=== PATIENT | female | born 1980 | race Caucasian/White ===

== ENCOUNTER 2023-03-11 18:17 | Inpatient (IN) | payer MEDICAID, SELFPAY ==
[2023-03-11 18:18] VITALS: BP 108/81; PULSE 160; RESP 22; TEMP 36.3; O2SAT 96; BMI 33.3
--- NOTE | 2023-03-11 18:57 | EKG12_ITS ---
Test Reason : DYSRHYTHMIA Blood Pressure : / mmHG Vent. Rate : 068 BPM Atrial Rate : 068 BPM P-R Int : 142 ms QRS Dur : 068 ms QT Int : 402 ms P-R-T Axes : 073 007 043 degrees QTc Int : 427 ms Normal sinus rhythm Normal ECG Confirmed by ERASTO AGUILA, TOMMIE ([id number]), commercial production editor MAC STAFFORD ([id number]) on 03/14/2023 10:16:42 AM Referred By: SID Confirmed By:TOMMIE MAURER MD
[2023-03-11] MEDS: 0.9% Normal Saline (1000mL) 1,000 ML 999 ML IV (19:33)
[2023-03-11 19:50] LABS: Absolute Neutrophil Count 7.3 X10^3/uL (2.0-7.7); Basophil# 0.01 X10^3/uL; Basophil% 0.1 % (0-1); Eosinophil# 0.05 X10^3/uL; Eosinophils% 0.5 % (0-5); Hematocrit 47.5 % (37-47); Hemoglobin 15.9 g/dL (12.0-15.0); Lymphocyte % 26.5 % (19-41); Mean Corp Hgb Conc 33.5 g/dL (32-36); Mean Corpuscular Hgb 28.8 pg (27.0-32.0); Mean Corpuscular Volume 85.9 fL (81-99); Mean Platelet Vol. 11.2 fl (6.2-12.0); Monocyte# 0.62 X10^3/uL; Monocyte% 5.7 % (0-10); NRBC Flagged by Analyzer 0 % (0-5); Neutrophil # 7.34 X10^3/uL (2.7-7.7); Neutrophil % 66.9 % (47-70); Platelet Count 188 K/mm3 (150-450); RBC Distribution Width CV 13.4 % (11.6-14.6); RBC Distribution Width SD 42.3 fl (35.1-43.9); Red Blood Count 5.53 M/mm3 (4.2-5.4)
[2023-03-11 20:02] LABS: Alcohol, Blood (Medical)-Serum < 3.0 mg/dL
[2023-03-11 20:09] LABS: ALB/GLOB Ratio 0.8 RATIO (0.9-2.4); AST(SGOT) 11 U/L (15-37); Alanine Aminotransfer ALT/SGPT 21 U/L (13-56); Albumin, Serum 3.8 g/dL (3.2-5.0); Alkaline Phosphatase 71 U/L (45-117); Anion Gap 6 (5-15); BUN 12 mg/dL (7-18); BUN/Creat Ratio 13.2 RATIO (10-20); Calcium,Total 9.1 mg/dL (8.5-10.1); Chloride 108 mmol/L (98-107); Creatinine, Serum 0.91 mg/dL (0.55-1.02); EST Glomerular Filtration Rate 71 mL/min (>60); Est Glom Filt Rate - Afr Amer 86 mL/min (>60); Estimated Creatinine Clearance 73.85 ml/min; Globulin 4.6 g/dL (2.2-4.2); Glucose 110 mg/dL (74-106); Potassium 3.7 mmol/L (3.5-5.1); Protein, Total 8.4 g/dL (6.4-8.2); Sodium Level 139 mmol/L (136-145); Troponin-I HS 14 pg/mL (3.0-54.0)
[2023-03-11 20:10] LABS: Amphetamine Urine VISTA NEGATIVE (<1000 ng/mL); Barbiturate Urine VISTA NEGATIVE (< 200 ng/mL); Benzodiazepine Urine VISTA NEGATIVE (< 200 ng/mL); Cocaine Urine VISTA NEGATIVE (< 300 ng/mL); Ecstacy Urine VISTA POSITIVE (< 500 ng/mL); Methadone Urine VISTA NEGATIVE (< 300 ng/mL); PCP Urine VISTA NEGATIVE (< 25 ng/mL); THC Urine VISTA POSITIVE (< 50 ng/mL); Vista UDS pH Range 6
[2023-03-11 20:59] LABS: Internal QC Validated? YES +Cl - CLEAR BKGD; Pregnancy, Urine Negative Negative
[2023-03-11 21:23] VITALS: BP 145/89; PULSE 63; RESP 16; TEMP 35.9; O2SAT 96
--- NOTE | 2023-03-11 21:47 | EDS_ITS ---
HPI History of Present Illness Chief Complaint: Substance Abuse Narrative Narrative: 2-year-old female presenting for opioid detox. She states she uses heroin and is not sure if uses fentanyl. Last use was 2 days ago. She states she feels like her body is caving in on her for today. She is unable to walk without getting tachycardic. She feels rundown. Last detox was over a year ago. She currently smokes heroin and does not inject it. She states that 4 years ago she used to injected. Patient requesting detox due to his symptoms. Denies any significant medical problems otherwise PFSH PFSH Allergy/AdvReac Type Severity Reaction Status Date / Time No Known Allergies Allergy Verified 03/11/23 18:18 Social History Smoking Status: Current every day smoker tobacco type: cigarettes ROS ROS ED Constitutional Constitutional ED: Denies chills, fever(s) or sweats Eyes Eyes: Denies blurry vision or change in vision ENT ENT ED: Denies ear pain or sore throat Cardiovascular Cardiovascular: Denies chest pain, palpitations or racing heartbeat Respiratory/Chest Respiratory/Chest: Denies cough, dyspnea or sputum Gastrointestinal Gastrointestinal: Denies abdominal pain, constipation, diarrhea, nausea or vomiting Genitourinary Genitourinary ED: Denies dysuria, hematuria or urinary frequency Musculoskeletal Musculoskeletal: Denies arthralgias, myalgias or neck pain Integumentary Denies abscess, Abrasions or rash Neurologic Neurologic: Denies headache(s), paresthesias or weakness Psychiatric Psychiatric: Denies anxiety, depression, suicidal ideation or suicidal thoughts Endocrine Endocrinology: Denies polydipsia or polyuria EXAM Physical Exam Const Vital Signs: 03/11/23 18:18 03/11/23 21:23 Temperature 97.3 F L 96.6 F L Temperature Source Temporal Pulse Rate 160 H 63 Respiratory Rate 22 H 16 Blood Pressure 108/81 H 145/89 H Blood Pressure Mean 90 107 Pulse Ox 96 96 Oxygen Delivery Method Room Air Positive well nourished General Appearance ED: NAD; Negative for pallor HEENT Reports moist mucous membranes atraumatic Eyes PERRL and EOMs intact bilaterally Neck no lymphadenopathy Resp normal respiratory effort and clear to auscultation bilaterally Auscultation: Negative for rales, rhonchi or wheezes Cardio regular rate Rate: tachycardic GI soft to palpation Neuro oriented x3 and CN's II-XII intact bilaterally Sensorium / Orientation: alert Psych mental status grossly normal and thought process normal Skin General Skin Exam: Negative for jaundice or pallor MDM MDM MDM Narrative Medical decision making narrative: Patient presenting for opioid detox. Appropriate lab work was obtained. Patient noted to be tachycardic at 160 on arrival. I obtained an EKG to make sure there is no dysrhythmia associated with the my interpretation of the EKG is sinus rhythm with a ventricular rate of 68 bpm without sign of ischemic change or ectopy. CBC, CMP unremarkable. Screen positive for the boys and MDMA. Negative for opiates. She is unsure if she is using fentanyl. High-sensitivity troponin was 14. Because of the tachycardia patient was given IV fluids. Since her work-up is ultimately normal. Her admitted and speak to the hospitalist. Impression: 1. History of opioid abuse 2. Presentation for opioid detox 3. Tachycardia?resolved Lab Data Attestation: I reviewed the patient's lab results. Labs: Laboratory Results - last 24 hr 03/11/23 19:30 WBC 11.0 RBC 5.53 H Hgb 15.9 H Hct 47.5 H MCV 85.9 MCH 28.8 MCHC 33.5 RDW Std Deviation 42.3 RDW Coeff of Terrence 13.4 Plt Count 188 MPV 11.2 Immature Gran % (Auto) 0.300 Neut % (Auto) 66.9 Lymph % (Auto) 26.5 [place] % (Auto) 5.7 Eos % (Auto) 0.5 Baso % (Auto) 0.1 Absolute Neuts (auto) 7.3 Absolute Lymphs (auto) 2.90 Nucleated RBC % 0 Sodium 139 Potassium 3.7 Chloride 108 H Carbon Dioxide 25.0 Anion Gap 6 BUN 12 Creatinine 0.91 Estim Creat Clear Calc 73.85 Est GFR (MDRD) Af Amer 86 Est GFR (MDRD) Non-Af 71 BUN/Creatinine Ratio 13.2 Glucose 110 H Calcium 9.1 Total Bilirubin 0.50 AST 11 L ALT 21 Alkaline Phosphatase 71 Troponin I High Sens 14 Total Protein 8.4 H Albumin 3.8 Globulin 4.6 H Albumin/Globulin Ratio 0.8 L Urine Test Negative Urine Opiates Screen NEGATIVE Urine Methadone Screen NEGATIVE Ur Barbiturates Screen NEGATIVE Ur Phencyclidine Scrn NEGATIVE Ur Amphetamines Screen NEGATIVE MDMA (Ecstasy) Screen POSITIVE H U Benzodiazepines Scrn NEGATIVE Urine Cocaine Screen NEGATIVE U Cannabinoids Screen POSITIVE H Ur Drug Screen Comment Ethyl Alcohol < 3.0 Discharge Plan Triage Chief Complaint: Substance Abuse ED Provider: Lance Martin Dx/Rx/DC Orders Primary Care Provider: Care Physician,No Primary Referrals: Care Physician,No Primary [Primary Care Provider] -
--- NOTE | 2023-03-11 22:48 | HP.PCM.HOS_ITS ---
HPI - General General Date of Admission: 03/11/23 Date of Service: 03/11/23 Chief Complaint: Requesting opiate withdrawal treatment HPI Narrative AL TRONCOSO, is a 42 F who presents requesting treatment for opiate withdrawal. Patient smokes heroin in addition to using cocaine and marijuana. Patient's last use was about 2 days ago. She is try to do this on her own but the symptoms of her opiate withdrawal became too intense. Been experiencing nausea, severe abdominal cramps and feeling that her bones are being crushed. Patient had been sober for period of time but relapsed and December 2021 and has been using opiates ever since. [facility] Medical History (Updated 03/11/23 @ 22:[address] Patricio Mckenzie DO) Diabetes mellitus, type 2 Allergy/AdvReac Type Severity Reaction Status Date / Time No Known Allergies Allergy Verified 03/11/23 18:18 Family History (Updated 03/11/23 @ 22:[address] Patricio Mckenzie DO) Other Diabetes Social History (Updated 03/11/23 @ 22:[address] Patricio Mckenzie DO) Smoking Status: Current every day smoker tobacco type: cigarettes alcohol intake: former substance use type: marijuana, crack/cocaine and heroin ROS ROS Narrative All review of systems were negative except as mentioned above in the history of present illness and the other review of systems. Vital Signs Vital Signs Vital Signs: 03/11/23 18:18 03/11/23 21:23 Temperature 36.3 C L 35.9 C L Temperature Source Temporal Pulse Rate 160 H 63 Respiratory Rate 22 H 16 Blood Pressure 108/81 H 145/89 H Blood Pressure Mean 90 107 Pulse Ox 96 96 Oxygen Delivery Method Room Air Weight Weight: 93.7 kg Body Mass Index (BMI) 33.3 Physical Exam Const alert and no apparent distress HEENT normocephalic and head/scalp atraumatic Resp normal respiratory effort, no retractions, no use of accessory muscles and clear to auscultation bilaterally Cardio regular rate, regular rhythm, S1 normal heart sound and S2 normal heart sound GI normal to inspection, nondistended, normoactive bowel sounds, soft to palpation, non-tender and non-distended Extremity normal to inspection and full ROM Neuro moves all extremities Sensorium / Orientation: awake and alert Psych affect normal Results Lab / Micro Data 03/11/23 19:30 03/11/23 19:30 Labs: Laboratory Results - last 24 hr 03/11/23 19:30: WBC 11.0, RBC 5.53 H, Hgb 15.9 H, Hct 47.5 H, MCV 85.9, MCH 2 8.8, MCHC 33.5, RDW Std Deviation 42.3, RDW Coeff of Terrence 13.4, Plt Count 188, MPV 11.2, Immature Gran % (Auto) 0.300, Neut % (Auto) 66.9, Lymph % (Auto) 26.5, [place] % (Auto) 5.7, Eos % (Auto) 0.5, Baso % (Auto) 0.1, Absolute Neuts (auto) 7.3, Absolute Lymphs (auto) 2.90, Nucleated RBC % 0, Sodium 139, Potassium 3.7, Chloride 108 H, Carbon Dioxide 25.0, Anion Gap 6, BUN 12, Creatinine 0.91, Estim Creat Clear Calc 73.85, Est GFR (MDRD) Af Amer 86, Est GFR (MDRD) Non-Af 71, BU N/Creatinine Ratio 13.2, Glucose 110 H, Calcium 9.1, Total Bilirubin 0.50, AST 11 L, ALT 21, Alkaline Phosphatase 71, Troponin I High Sens 14, Total Protein 8.4 H, Albumin 3.8, Globulin 4.6 H, Albumin/Globulin Ratio 0.8 L, Urine Test Negative, Urine Opiates Screen NEGATIVE, Urine Methadone Screen NEGATIVE, Ur Barbiturates Screen NEGATIVE, Ur Phencyclidine Scrn NEGATIVE, Ur Amphetamines Screen NEGATIVE, MDMA (Ecstasy) Screen POSITIVE H, U [place] Scrn NEGATIVE, Urine Cocaine Screen NEGATIVE, U Cannabinoids Screen POSITIVE H, Ur Drug Screen Comment , Ethyl Alcohol < 3.0 Assessment & Plan Assessment/Plan (1) Opiate withdrawal: PLAN: Patient had tried doing this on her own and quit 2 days prior to admission. Symptoms were too intense for her at home. Patient will be initiated on buprenorphine taper as well as other agents to help with other somatic complaints as needed from her withdrawal. Patient understands that she will be here for about 3 days and then look at having addiction medicine evaluate her on Tuesday to see about some outpatient programs that she may benefit from. She is open to the program and willing to proceed to discuss with addiction medicine on Tuesday. PLAN: Plan History of diabetes mellitus type 2: Patient had been on medications before but had been taken off by her primary care doctor this is reportedly her blood sugar doing fairly well. Blood sugar here is 110. She does not follow diabetic diet. Recommend that she follow-up with her primary care provider as outpatient. VTE prophylaxis: Low risk and not indicated at this time. Charges/Coding Visit Charges Inpatient E&M: 34972 Init Hosp L2
[2023-03-11 23:02] VITALS: BMI 32.6
[2023-03-11 23:25] VITALS: BP 136/64; PULSE 64; RESP 16; TEMP 36.5; O2SAT 95
[2023-03-11] MEDS: Ondansetron 8 MG Tablet PO (23:36)
[2023-03-11] MEDS: Dicyclomine 10 MG Capsule 20 MG PO (23:36)
[2023-03-11] MEDS: Methocarbamol 750 MG Tablet PO (23:36)
[2023-03-11] MEDS: Loperamide 2 MG Capsule PO (23:37)
[2023-03-11] MEDS: hydrOXYzine PAM 25 MG Capsule 50 MG PO (23:37)
[2023-03-11] MEDS: Buprenorphine HCl 2 MG TAB.SUBL SL (23:40)
[2023-03-12] MEDS: Methocarbamol 750 MG Tablet PO ×3 (06:54→23:02)
[2023-03-12] MEDS: hydrOXYzine PAM 25 MG Capsule 50 MG PO ×3 (06:54→22:59)
[2023-03-12] MEDS: Buprenorphine HCl 2 MG TAB.SUBL SL ×3 (06:54→23:03)
[2023-03-12] MEDS: Dicyclomine 10 MG Capsule 20 MG PO ×2 (06:58→15:33)
[2023-03-12] MEDS: cloNIDine HCl 0.1 MG Tablet PO (06:58)
[2023-03-12 07:01] VITALS: BP 148/93; PULSE 89; RESP 16; TEMP 36.5; O2SAT 99
[2023-03-12] MEDS: Ibuprofen 600 MG Tablet PO (09:32)
--- NOTE | 2023-03-12 09:34 | PCM.PN.HOSP ---
Reason for Visit Reason for Visit: Diagnoses Opioid use, unspecified with withdrawal (03/11/23) Subjective Subjective Pt beginning to feel better on supportive medications, achiness improving Objective Data Objective Data Vital Signs: Vital Signs Temp Pulse Resp BP Pulse Ox O2 Del Method 97.7 F L 89 16 148/93 H 99 Room Air 03/12/23 07:01 03/12/23 07:01 03/12/23 07:01 03/12/23 07:01 03/12/23 07:01 03/12/23 07:01 Oxygen Delivery Method Room Air Weight: 91.7 kg Body Mass Index (BMI) 32.6 Intake & Output: Intake and Output for Last 24 Hours 03/10/23 03/11/23 03/12/23 23:59 23:59 23:59 Intake Total 1000 / 1000 Balance 1000 / 1000 Lab / Micro Data 03/11/23 19:30 03/11/23 19:30 Labs: Laboratory Results - last 24 hr 03/11/23 19:30: WBC 11.0, RBC 5.53 H, Hgb 15.9 H, Hct 47.5 H, MCV 85.9, MCH 28.8, MCHC 33.5, RDW Std Deviation 42.3, RDW Coeff of Terrence 13.4, Plt Count 188, MPV 11.2, Immature Gran % (Auto) 0.300, Neut % (Auto) 66.9, Lymph % (Auto) 26.5, [place] % (Auto) 5.7, Eos % (Auto) 0.5, Baso % (Auto) 0.1, Absolute Neuts (auto) 7.3, Absolute Lymphs (auto) 2.90, Nucleated RBC % 0, Sodium 139, Potassium 3.7, Chloride 108 H, Carbon Dioxide 25.0, Anion Gap 6, BUN 12, Creatinine 0.91, Estim Creat Clear Calc 73.85, Est GFR (MDRD) Af Amer 86, Est GFR (MDRD) Non-Af 71, BUN/Creatinine Ratio 13.2, Glucose 110 H, Calcium 9.1, Total Bilirubin 0.50, AST 11 L, ALT 21, Alkaline Phosphatase 71, Troponin I High Sens 14, Total Protein 8.4 H, Albumin 3.8, Globulin 4.6 H, Albumin/Globulin Ratio 0.8 L, Urine Test Negative, Urine Opiates Screen NEGATIVE, Urine Methadone Screen NEGATIVE, Ur Barbiturates Screen NEGATIVE, Ur Phencyclidine Scrn NEGATIVE, Ur Amphetamines Screen NEGATIVE, MDMA (Ecstasy) Screen POSITIVE H, U Benzodiazepines Scrn NEGATIVE, Urine Cocaine Screen NEGATIVE, U Cannabinoids Screen POSITIVE H, Ur Drug Screen Comment , Ethyl Alcohol < 3.0 Physical Exam Narrative General: Alert, oriented, no apparent distress HEENT: Atraumatic, normocephalic Eyes: extraocular movements grossly intact Neck: Supple Respiratory: normal respiratory effort Cardiovascular: no edema appreciated GI: nondistended Extremities: Moving all extremities Neuro: No overt focal neurological deficits Psych: Cooperative Assessment & Plan Assessment/Plan (1) Opiate withdrawal: PLAN: Patient had tried doing this on her own and quit 2 days prior to admission. Symptoms were too intense for her at home. Patient will be initiated on buprenorphine taper as well as other agents to help with other somatic complaints as needed from her withdrawal. Patient understands that she will be here for about 3 days and then look at having addiction medicine evaluate her on Tuesday to see about some outpatient programs that she may benefit from. She is open to the program and willing to proceed to discuss with addiction medicine on Tuesday. -03/12: Beginning to feel better on Subutex taper, continue present management, continue supportive care PLAN: Plan History of diabetes mellitus type 2: Patient had been on medications before but had been taken off by her primary care doctor this is reportedly her blood sugar doing fairly well. Blood sugar here is 110. She does not follow diabetic diet. Recommend that she follow-up with her primary care provider as outpatient. VTE prophylaxis: Low risk and not indicated at this time. Charges/Coding Visit Charges Inpatient E&M: 35578 Subs Hosp L1
[2023-03-12 11:00] VITALS: BP 119/73; PULSE 63; RESP 18; TEMP 36.8; O2SAT 100
[2023-03-12] MEDS: Glucerna Shake 120 ML LIQUID PO ×2 (14:32→17:30)
[2023-03-12 15:00] VITALS: BP 121/82; PULSE 69; RESP 18; TEMP 36.7; O2SAT 100
[2023-03-12] MEDS: Loperamide 2 MG Capsule PO (15:33)
--- NOTE | 2023-03-12 16:43 | ADDICTION ---
Pt was met w/for Addiction Medicine RAMP assessment. The pt's ASAM, DUDIT, AUDIT, D/C Plan, and AUGIE's were completed and added to pt's chart. Pt was engaged in review of risk factors and pt was educated on the importance of seeking follow up tx after d/c. Pt presents with high risk of relapse and continued problem potential and it is recommended that pt follow up with inpatient [facility] and MH services. Pt denies interest in any [facility] or MH residential treatment options but pt states she is willing to f/u w/outpatient services at [facility] in [place]. Pt is agreeable to doing a walk in appt. at [facility] the same day as discharge from [facility]. Pt was provided information about [facility] MAT, peer support, and case management services in addition to [facility] and MH services. Pt states she would like to return home to [place] where she lives with her three adult children who she identifies as her primary supports. Pt states she has transportation to get home but she will need to call them on day of discharge to ask for a ride. Pt states Dr. Prasad's office in [place] transported her to [facility] and agreed to transport her back home.
--- NOTE | 2023-03-12 16:52 | CASEMGMT ---
Social Work SW met w/pt, completed SDOH. SW also spoke w/pt about self pay status. She states she completed a Medicaid application but was denied, does not know why. SW suggested to pt she call JFS when she gets home to find out why. Pt states understanding. SW will follow up Tuesday w/resources. PREM Ayon
[2023-03-12 18:36] VITALS: BP 113/73; PULSE 70; RESP 18; TEMP 36.9; O2SAT 100
[2023-03-12] MEDS: traZODone 100 MG Tablet PO (22:59)
[2023-03-12 23:00] VITALS: BP 141/84; PULSE 73; RESP 16; TEMP 36.6; O2SAT 100
[2023-03-13 05:00] VITALS: BP 121/78; PULSE 78; RESP 16; TEMP 36.6; O2SAT 97
[2023-03-13] MEDS: Ibuprofen 600 MG Tablet PO ×3 (06:51→23:47)
[2023-03-13] MEDS: Buprenorphine HCl 2 MG TAB.SUBL SL ×3 (06:51→22:56)
[2023-03-13] MEDS: hydrOXYzine PAM 25 MG Capsule 50 MG PO ×2 (06:53→15:48)
[2023-03-13] MEDS: Gabapentin 300 MG Capsule PO ×3 (06:54→23:48)
--- NOTE | 2023-03-13 07:44 | PN.HOSP_ITS ---
Reason for Visit Reason for Visit: Diagnoses Opioid use, unspecified with withdrawal (03/11/23) Subjective Subjective Feeling better with present medications, very appreciative of help with her detox Objective Data Objective Data Vital Signs: Vital Signs Temp Pulse Resp BP Pulse Ox O2 Del Method 98 F 78 16 121/78 H 97 Room Air 03/13/23 05:00 03/13/23 05:00 03/13/23 05:00 03/13/23 05:00 03/13/23 05:00 03/13/23 05:00 Oxygen Delivery Method Room Air Weight: 91.7 kg Body Mass Index (BMI) 32.6 Intake & Output: Intake and Output for Last 24 Hours 03/11/23 03/12/23 03/13/23 23:59 23:59 23:59 Intake Total 1000 / 1000 Balance 1000 / 1000 Lab / Micro Data 03/11/23 19:30 03/11/23 19:30 Physical Exam Narrative General: Alert, oriented, no apparent distress HEENT: Atraumatic, normocephalic Eyes: extraocular movements grossly intact Neck: Supple Respiratory: normal respiratory effort Cardiovascular: no edema appreciated GI: nondistended Extremities: Moving all extremities Neuro: No overt focal neurological deficits Psych: Cooperative Assessment & Plan Assessment/Plan (1) Opiate withdrawal: PLAN: Patient had tried doing this on her own and quit 2 days prior to admission. Symptoms were too intense for her at home. Patient will be initiated on buprenorphine taper as well as other agents to help with other somatic complaints as needed from her withdrawal. Patient understands that she will be here for about 3 days and then look at having addiction medicine evaluate her on Tuesday to see about some outpatient programs that she may benefit from. She is open to the program and willing to proceed to discuss with addiction medicine on Tuesday. -03/12: Beginning to feel better on Subutex taper, continue present management, continue supportive care -03/13: Subutex taper through tomorrow then can likely DC for outpatient follow- up PLAN: Plan History of diabetes mellitus type 2: Patient had been on medications before but had been taken off by her primary care doctor this is reportedly her blood sugar doing fairly well. Blood sugar here is 110. She does not follow diabetic diet. Recommend that she follow-up with her primary care provider as outpatient. VTE prophylaxis: Low risk and not indicated at this time. Charges/Coding Visit Charges Inpatient E&M: 16153 Subs Hosp L1
[2023-03-13] MEDS: Glucerna Shake 120 ML LIQUID PO ×4 (09:33→22:55)
[2023-03-13 11:00] VITALS: BP 114/78; PULSE 88; RESP 18; TEMP 36.7; O2SAT 100
[2023-03-13 15:00] VITALS: BP 140/80; PULSE 66; RESP 16; TEMP 36.6; O2SAT 99
[2023-03-13 22:59] VITALS: BP 127/82; PULSE 67; RESP 16; TEMP 36.5; O2SAT 97
[2023-03-13] MEDS: traZODone 100 MG Tablet PO (23:13)
[2023-03-14 06:06] VITALS: BP 134/80; PULSE 70; RESP 16; TEMP 36.6; O2SAT 99
--- NOTE | 2023-03-14 07:52 | PCM.DC.SUM ---
Providers Date of Admission: 03/11/23 Date of Discharge: 03/14/23 Primary Care Physician: Rosa Maria Primary Care Phys Reason For Visit: OPIATE WITHDRAWAL. Diagnosis Discharge Diagnosis (1) Opiate withdrawal: Status: Acute Code(s): F11.93 - Opioid use, unspecified with withdrawal Hospital Course Summary of Care Provided Minutes Spent on Discharge: 35 Hospital Course: Patient is a 42-year-old lady with history of chronic opioid dependence admitted with acute opioid withdrawal 1. Acute opiate withdrawal patient was admitted to regular nursing floor managed with ibuprofen and taper in addition to adjuvant medication for symptoms patient did improve with therapy 2. Diabetes mellitus type 2 ? Managed with diet 3. Polysubstance abuse ? Including marijuana crack cocaine and heroin ? Counseled on cessation 4. DVT prophylaxis ? Low risk did encourage ambulation Physical Exam Narrative GENERAL: cooperative HEENT: Atraumatic; normocephalic EYES; Anicteric, Normal Conjunctiva NECK; supple, normal thyroid, RESPIRATORY: Diminished to auscultation CARDIOVASCULAR: Regular S1 S2, GI: soft, normoactive bowel sounds, : No Renal angle tenderness; EXTREMITIES: No edema, no clubbing, MUSCULOSKELETAL: no muscle wasting NEURO: Awake; no lateralizing signs. SKIN: No Rash PSYCH; Flat affect Weight / BMI Weight Weight: 91.7 kg Body Mass Index (BMI) 32.6 ABG / Lab / Microbiology Data 03/11/23 19:30 03/11/23 19:30 D/C Instructions Discharge Diet: No restrictions Discharge Activity: Return to Normal Activity Call your doctor if you observe: Fever of 101 or Higher, Shortness of breath, Fainting spells and Chest pain Meaningful Use Info Meaningful Use Diagnoses (Choose all that apply): None applicable Discharge Plan Admission Admit Date/Time: 03/11/23 22:46 Attending Provider: Adriel Moore Primary Care Provider: Genna Martinez,No Primary Consulting Providers: Patricio Mckenzie; Dayami Perez Discharge Orders/Prescriptions Referrals / Follow Up: Care Physician,Rosa Maria Primary [Primary Care Provider] - 03/14/23 12:07 pm Disposition Disposition (needs filled in before D/C Order can be placed): Home, Self Care Charges/Coding Visit Charges Inpatient E&M: 86874 Disch Hosp >30min
[2023-03-14 08:01] VITALS: BP 125/85; PULSE 71; RESP 16; TEMP 37; O2SAT 98
--- NOTE | 2023-03-14 09:34 | CASEMGMT ---
Social Work SW met w/pt again this morning, gave pt resources for self pay in [facility] including free clinic information, JFS information, prescription assistance, [facility] assist and a Medicaid application. Pt states she does plan to follow up w/JFS regarding why her Medicaid was denied. SW also gave pt information for [facility] in [facility], suggested she call to see about bed resources. Pt thanked SW for the information. No further social service needs are anticipated at this time. PREM Ayon
[2023-03-14] MEDS: Ibuprofen 600 MG Tablet PO (10:06)
--- NOTE | 2023-03-14 10:11 | PHA.DC.MR.R ---
Pharmacy [place] Med Reconciliation Pharmacy Service has performed discharge medication reconciliation for this patient. The patient's discharge medication list was reviewed for discrepancies and discrepancies were resolved.
[2023-03-14] MEDS: Glucerna Shake 120 ML LIQUID PO (11:15)
== END 2023-03-14 12:05 | disposition home or self-care (01) | DRG 897 ==
LOC: ED 19:08 → MS3 22:59
PROVIDERS: Emergency Provider Student in an Organized Health Care Education/Training Program; Visit Provider Internal Medicine
DX: F11.23 Opioid dependence with withdrawal (principal); F14.19 Cocaine abuse with unspecified cocaine-induced disorder; E11.9 Type 2 diabetes mellitus without complications; F12.10 Cannabis abuse, uncomplicated; F17.210 Nicotine dependence, cigarettes, uncomplicated
CPT/HCPCS: 80053; 80307; 81025; 82077; 84484; 85025; 93005; 97802; 99283; J7030; A4216

== ENCOUNTER 2025-04-01 15:36 | Inpatient (IN) | payer SELFPAY ==
[2025-04-01 15:38] VITALS: BP 159/75; PULSE 72; RESP 18; TEMP 36.4; O2SAT 100; BMI 33.5
[2025-04-01 16:55] LABS: Hematocrit 31.6 % (37-47); Hemoglobin 8.5 g/dL (12.0-15.0); Immature Granulocytes Count 0.020 X10^3/uL (0.0-0.0); Mean Corp Hgb Conc 26.9 g/dL (32-36); Mean Corpuscular Volume 63.7 fL (81-99); NRBC Flagged by Analyzer 0 % (0-5); Platelet Count 238 K/mm3 (150-450); RBC Distribution Width CV 17.9 % (11.6-14.6); RBC Distribution Width SD 39.8 fl (35.1-43.9); Red Blood Count 4.96 M/mm3 (4.2-5.4); White Blood Count 8.2 K/mm3 (4.4-11.0)
[2025-04-01 16:59] LABS: Internal QC Validated? YES +Cl - CLEAR BKGD; Pregnancy, Serum, hCG Quali. NEGATIVE Negative
[2025-04-01 17:09] LABS: Alcohol, Blood (Medical)-Serum < 10.1 mg/dL (<=10.0)
[2025-04-01 17:11] LABS: AST(SGOT) 22 U/L (<=31); Alanine Aminotransfer ALT/SGPT 16 U/L (<=34); Albumin, Serum 4.1 g/dL (3.5-5.0); Alkaline Phosphatase 68 U/L (35-104); Anion Gap 12 (7-18); BUN 15 mg/dL (4-19); BUN/Creat Ratio 18.1 RATIO (10-20); Calcium,Total 8.9 mg/dL (7.6-11.0); Carbon Dioxide 24.7 mmol/L (20.0-29.0); Chloride 104 mmol/L (96-106); Estimated Creatinine Clearance 96.79 ml/min (50-250); Globulin 3.1 g/dL (2.2-4.2); Glucose 115 mg/dL (70-99); Potassium 4.0 mmol/L (3.5-5.1)
[2025-04-01 17:30] LABS: Barbiturate Urine NEGATIVE (< 200 ng/mL); Benzodiazepine Urine NEGATIVE (< 200 ng/mL); PCP Urine NEGATIVE (< 25 ng/mL); THC Urine PRESUMPTIVE POSITIVE (< 50 ng/mL)
--- NOTE | 2025-04-01 18:24 | EDS_ITS ---
HPI History of Present Illness Chief Complaint: Substance Abuse [facility] Medical History (Updated 03/22/23 @ 00:02 by Keith Fulton) Sciatica Substance abuse Bipolar disorder Anxiety Depression Hepatitis Smoker Congestive heart failure (CHF) Migraines Diabetes mellitus, type 2 Allergy/AdvReac Type Severity Reaction Status Date / Time No Known Allergies Allergy Verified 04/01/25 15:39 Family History (Updated 03/11/23 @ 22:[address] Patricio Mckenzie, DO) Other Diabetes Surgical History (Updated 03/11/23 @ 23:15 by Dali Álvarez) History of cholecystectomy Social History (Updated 03/11/23 @ 22:[address] Patricio Mckenzie DO) Smoking Status: Current every day smoker tobacco type: cigarettes alcohol intake: former substance use type: marijuana, crack/cocaine and heroin EXAM Physical Exam Const Vital Signs: 04/01/25 15:38 Temperature 97.6 F L Temperature Source Temporal Pulse Rate 72 Respiratory Rate 18 Blood Pressure 159/75 H Blood Pressure Mean 103 Pulse Ox 100 Oxygen Delivery Method Room Air MDM MDM MDM Narrative Medical decision making narrative: HISTORY OF PRESENT ILLNESS: Chief complaint: Substance abuse 44-year-old female history of anxiety, bipolar disorder, depression, CHF, type 2 diabetes, polysubstance abuse presents with request for detox from heroin and cocaine. She notes last use was this morning. States she snorts her drug of choice. Denies IV drug use. Denies chest pain or back pain or fever. REVIEW OF SYSTEMS: Pertinent positives: As per HPI Pertinent negatives: As per HPI PHYSICAL EXAM: Nursing triage notes reviewed, Vital signs reviewed Constitutional: please see mdm HENT: MMM Eyes: Pupils equal round and reactive to light, Extraocular muscles intact Neck: No stridor, no JVD, full neck ROM Lungs: Clear to auscultation, No wheezing or rales. No increased work of breathing, no conversational dyspnea, no accessory muscle use, no nasal flaring. No respiratory distress noted Heart: Regular rate and rhythm, No murmurs, No rubs and No gallops, 2+ distal pulses (radial, femoral, posterior tibial) in all extremities Abdomen: Soft, there is no tenderness, rigidity, rebound or guarding, no obvious peritoneal signs, no palpable pulsatile abdominal masses, no auscultated abdominal bruit : No CVAT Extremities: No edema Neuro: No new focal neurological deficits, cranial nerves II through XII intact, 5/5 strength in all present extremities. Intact sensation to light touch in all present extremities, 2+ reflexes bilateral patella tendons. Skin: No rash or lesions noted MEDICAL DECISION MAKING: Chief Complaint: please see HPI External records reviewed: Seen for open withdrawal 2022 Factors affecting care: As per [facility] Social determinants of health: History of polysubstance abuse History obtained from others: none Consults: Hospitalist (Dr. Garcia) [facility] Narrative: The patient was initially hemodynamically stable, afebrile. Protocol labs were placed for initiation to the right ALL IMAGES (IF OBTAINED) HAVE BEEN PERSONALLY REVIEWED AND INTERPRETED BY MYSELF. CBC with no leukocytosis, noted severe anemia, no thrombocytopenia BMP without evidence of significant electrolyte abnormalities, no anion gap, no acute kidney injury. LFTs show no evidence of hepatobiliary pathology. Serum test negative Urine tox cream positive for fentanyl, cocaine, cannabinol Serum alcohol negative Patient was medically cleared for admission to a ramp program. Discussed with hospitalist agreed to admit the patient. The patient and/or family, caregivers express understanding. The patient and/or family, caregivers agrees with the plan. Shared decision making: I will have a discussion with the patient and or visitors regarding risk/benefits of further testing or admission. They will be made aware of of the risk/benefits inherent in this decision they will be given the opportunity to voice understanding. Total critical care time today provided was at least 0 minutes. This excludes separately billable procedures. Critical care time (if documented) is secondary to the patient having high probability of clinically significant/life threatening deterioration in the patient's condition which required my urgent intervention. Impression: 1. Encounter for detoxification admission 2. History of polysubstance 3. Anemia Dispo: Admit to [facility] This note was generated with [employer] dictation software. It may contain incorrect words, spelling, and punctuation that were not noted in review of the chart prior to signing. Lab Data Labs: Laboratory Results - last 24 hr 04/01/25 16:30 WBC 8.2 RBC 4.96 Hgb 8.5 L Hct 31.6 L MCV 63.7 L MCH 17.1 L MCHC 26.9 L RDW Std Deviation 39.8 RDW Coeff of Terrence 17.9 H Plt Count 238 Immature Gran % (Auto) 0.200 Neut % (Auto) 58.4 Lymph % (Auto) 31.7 [place] % (Auto) 6.4 Eos % (Auto) 3.1 Baso % (Auto) 0.2 Absolute Neuts (auto) 4.8 Absolute Lymphs (auto) 2.59 Nucleated RBC % 0 Sodium 141 Potassium 4.0 Chloride 104 Carbon Dioxide 24.7 Anion Gap 12 BUN 15 Creatinine 0.84 Estim Creat Clear Calc 96.79 Est GFR (MDRD) Non-Af 87 BUN/Creatinine Ratio 18.1 Glucose 115 H Calcium 8.9 Total Bilirubin 0.22 AST 22 ALT 16 Alkaline Phosphatase 68 Total Protein 7.2 Albumin 4.1 Globulin 3.1 Albumin/Globulin Ratio 1.3 Serum , Qual NEGATIVE Urine Opiates Screen NEGATIVE U Buprenorphine Qual NEGATIVE Ur Oxycodone Screen NEGATIVE Urine Methadone Screen NEGATIVE Urine Fentanyl Screen PRESUMPTIVE POSITIVE Ur Barbiturates Screen NEGATIVE Ur Phencyclidine Scrn NEGATIVE Ur Amphetamines Screen NEGATIVE U Benzodiazepines Scrn NEGATIVE Urine Cocaine Screen PRESUMPTIVE POSITIVE U Cannabinoids Screen PRESUMPTIVE POSITIVE Ethyl Alcohol < 10.1 Discharge Plan Triage Chief Complaint: Substance Abuse ED Provider: Marck Ingram Dx/Rx/DC Orders Primary Care Provider: Betsey Ferguson [employer] EXPORT LOGISTICS MANAGER Referrals: Care Physician,No Primary [Non-Staff, Medical] Print Language: Luxembourgish
--- NOTE | 2025-04-01 18:37 | PCM.HP.STD ---
HPI - General General Date of Admission: 04/01/25 Date of Service: 04/01/25 Chief Complaint: Acute opiate withdrawal, requesting detox. HPI Narrative The patient is a 44 y/o F w/ PMHx: Polysubstance abuse with chart reported history hepatitis unclear specific type (Cannabis, crack/cocaine, heroin), Former EtOH abuse (sober), Tobacco use, Anxiety and Depression/bipolar disorder, History of Diabetes mellitus type II, Tobacco use, Chart reported HF history unclear EF status who presents to the [facility] ED on 04/01/2025 w/ noted acute opiate withdrawal onset starting in the afternoon on day of presentation following last dose reportedly heroin which was smoked with abdominal pain/cramping, generalized body aches, mild rhinorrhea, fatigue, restless leg. Patient reports being interested in obtaining clean status. She notes in the past she did use things intravenously but is transition to smoking. Patient is not taking any medications for any of her underlying disease processes. Workup in the ED included T97.6, heart rate 72, BP 159/75, respiratory rate 18, and her percent on room air with most recent repeat vitals T97.1, heart rate 81, BP 142/82, respiratory rate 18, 97% on room air, CBC with WC 8.2, Hgb 8.5, MCV 63.7, platelet 238 without marked shift, CMP not marked appearing, glucose 115, UDS with presumptive positive for fentanyl, cocaine, cannabis, ethyl alcohol less than 10.1. [facility] Medical History Tobacco use Sciatica Substance abuse Bipolar disorder Anxiety Depression Hepatitis Smoker Congestive heart failure (CHF) Migraines Diabetes mellitus, type 2 Allergy/AdvReac Type Severity Reaction Status Date / Time No Known Allergies Allergy Verified 04/01/25 15:39 Family History (Updated 04/01/25 @ 20:[address] Mickie Garcia MD) Mother Diabetes Father Diabetes Heart disease Surgical History S/P tubal ligation History of cholecystectomy Social History (Updated 04/01/25 @ 20:[address] Mickie Garcia MD) household members: children Smoking Status: Current every day smoker tobacco type: cigarettes Smoking packs per day: 0.75 Smoking cigarettes per day: 15.0 alcohol intake: former substance use type: marijuana, crack/cocaine and heroin ROS ROS Narrative Admission Review of Systems: CONSTITUTIONAL: No weight loss, fever, + chills, weakness or fatigue. HEENT: Eyes: No visual loss, blurred vision, double vision or yellow sclerae. Ears, Nose, Throat: No hearing loss, sneezing, congestion, runny nose or sore throat. SKIN: No rash or itching, lesions, wounds. CARDIOVASCULAR: No chest pain, chest pressure or chest discomfort, palpitations, edema, orthopnea, syncopal events. RESPIRATORY: No shortness of breath, cough or sputum, wheezing, hemoptysis. GASTROINTESTINAL: + anorexia, mild abdominal cramping, nausea. No vomiting or diarrhea, melena, BRBPR. GENITOURINARY: No dysuria, frequency, urgency or retention. NEUROLOGICAL: No headache, dizziness, syncope, paralysis, ataxia, numbness or tingling in the extremities, focal weakness, change in bowel or bladder control, seizure. MUSCULOSKELETAL: + muscle, back pain, joint pain or stiffness. HEMATOLOGIC:+ Evidence of anemia, suspect chronic. No reported easy history of bleeding or bruising. LYMPHATICS: No enlarged nodes. No history of splenectomy. PSYCHIATRIC: + History of anxiety depression/bipolar disorder. ENDOCRINOLOGIC: + reports of sweating, cold or heat intolerance. No polyuria or polydipsia. ALLERGIES: No history of asthma, hives, eczema or rhinitis. Patient's Goals Of Care . What would you like to achieve or improve as a result of your hospital stay?: Opiate detoxification, clean status. Vital Signs Vital Signs Vital Signs: 04/01/25 15:38 Temperature 97.6 F L Temperature Source Temporal Pulse Rate 72 Respiratory Rate 18 Blood Pressure 159/75 H Blood Pressure Mean 103 Pulse Ox 100 Oxygen Delivery Method Room Air Weight Weight: 207 lb 11.2 oz Body Mass Index (BMI) 33.5 Physical Exam Narrative Physical Examination: General: Awake, alert, oriented x 3 and cooperative, seated upright in the ED chair, notes worsening symptoms but currently mild. Skin: Normal color, normal turgor, no icterus, no cyanosis except occasional stage ecchymoses, abrasion. HEENT: AT/NC, EOMI, PERRLA, moderately dry MM, no carotid bruits or JVD noted. Lungs: CTA bilaterally, moderate effort, mild decrease BL bases, no rales, ronchi or wheezing. Heart: Regular rate and rhythm; no gallop, rub audible. Abdomen: Soft, mild generalized discomfort with palpation but no rebound or guarding, ND, hyperactive BS, no markedly appreciated HSM. Extremities: No cyanosis, clubbing, or edema. Neurological: Patient awake, alert, oriented as noted, cognitive function intact; pupils equally reactive to light and accommodation, cranial nerves grossly normal, moving all 4 extremities, no focal deficits, strength mildly globally creased secondary to acute presentation. Psychiatric: Affect appears fatigued, mildly restless, no acute evidence of depressive or anxiety feelings but does have underlying history. Results Lab / Micro Data 04/01/25 16:30 04/01/25 16:30 Labs: Laboratory Results - last 24 hr 04/01/25 16:30: WBC 8.2, RBC 4.96, Hgb 8.5 L, Hct 31.6 L, MCV 63.7 L, MCH 17.1 L, MCHC 26.9 L, RDW Std Deviation 39.8, RDW Coeff of Terrence 17.9 H, Plt Count 238, Immature Gran % (Auto) 0.200, Neut % (Auto) 58.4, Lymph % (Auto) 31.7, [place] % (Auto) 6.4, Eos % (Auto) 3.1, Baso % (Auto) 0.2, Absolute Neuts (auto) 4.8, Absolute Lymphs (auto) 2.59, Nucleated RBC % 0, Sodium 141, Potassium 4.0, Chloride 104, Carbon Dioxide 24.7, Anion Gap 12, BUN 15, Creatinine 0.84, Estim Creat Clear Calc 96.79, Est GFR (MDRD) Non-Af 87, BUN/Creatinine Ratio 18.1, Glucose 115 H, Calcium 8.9, Total Bilirubin 0.22, AST 22, ALT 16, Alkaline Phosphatase 68, Total Protein 7.2, Albumin 4.1, Globulin 3.1, Albumin/Globulin Ratio 1.3, Serum , Qual NEGATIVE, Urine Opiates Screen NEGATIVE, U Buprenorphine Qual NEGATIVE, Ur Oxycodone Screen NEGATIVE, Urine Methadone Screen NEGATIVE, Urine Fentanyl Screen PRESUMPTIVE POSITIVE, Ur Barbiturates Screen NEGATIVE, Ur Phencyclidine Scrn NEGATIVE, Ur Amphetamines Screen NEGATIVE, U Benzodiazepines Scrn NEGATIVE, Urine Cocaine Screen PRESUMPTIVE POSITIVE, U Cannabinoids Screen PRESUMPTIVE POSITIVE, Ethyl Alcohol < 10.1 Assessment & Plan Assessment/Plan (1) Opiate withdrawal: PLAN: Plan The patient is a 44 y/o F w/ PMHx: Polysubstance abuse with chart reported history hepatitis unclear specific type (Cannabis, crack/cocaine, heroin), Former EtOH abuse (sober), Tobacco use, Anxiety and Depression/bipolar disorder, History of Diabetes mellitus type II, Tobacco use, Chart reported HF history unclear EF status who presents to the [facility] ED on 04/01/2025 w/ noted acute opiate withdrawal onset starting in the afternoon on day of presentation following last dose reportedly heroin which was smoked with abdominal pain/cramping, generalized body aches, mild rhinorrhea, fatigue, restless leg. #1. Acute Opiate Withdrawal: Will admit to [facility], routine labs including CBC, CMP, urine for drug screen obtained in the ED, will initiate and continue on protocol with tapering course of Subutex, as needed tylenol, ibuprofen, bowel regimen, gabapentin, Bentyl, Vistaril, methocarbamol, clonidine, PRN nightly trazodone for insomnia, IV fluids, IV antiemetics. Case management/social work consulted for assistance with next transition of care. #2. Polysubstance Abuse, IVDA Hx, History of Hepatitis unclear type: Discussed with patient and they are amenable thus will obtain HIV, hepatitis panel, syphilis, encourage clean status, continue interventions as noted above. #3. Anxiety and depression/bipolar disorder: Likely contributing greatly to her substance abuse, not on any medication, case management/social work consulted, would benefit from potential interventions as well as ongoing therapy. #4. History of diabetes mellitus type II: Noted in chart history, not on any medication, blood sugar not markedly elevated this time, no hemoglobin A1c noted in the system, will allow regular diet this time given her current presentation status but in the interim we will obtain hemoglobin A1c and if concerning may transition to ADA diet with Accu-Cheks with insulin sliding scale. #5. Chart reported HF history unclear EF status: Noted previously, reportedly congenital and unclear if resolved, no echocardiogram in the system, not on any of the appropriate medications and unfortunately may not be a true diagnosis but uncertain, if remains appropriate may be appropriate for initiation of beta-kiersten therapy, AQUILINO inhibitor/ARB. Given anemia as noted will request guaiac prior to baby aspirin addition. #6. Suspected hypertension, untreated: Patient not on any medication but given elevated blood pressure in the ED and reported chart history of previous HF unclear EF status if remains elevated, would consider adding beta-kiersten therapy versus AQUILINO inhibitor/ARB given underlying concurrent history, as needed IV hydralazine the interim. #7. Microcytic anemia, unclear chronicity: Admission hemoglobin 8.5, MCV 63.7, given preference to add a baby aspirin will obtain guaiac to be cautious as well as iron panel and ferritin, would benefit from workup ongoing outpatient. #8. Former alcohol abuse: Encourage continued sobriety. #9. Tobacco Abuse: Encouraged cessation, inpatient consultation per RT, NR if desired. #10. DVT prophylaxis: Low risk for type of presentation, encourage ambulation. Charges/Coding Visit Charges Inpatient E&M: 60797 Init Hosp L3
[2025-04-01 19:01] VITALS: BP 142/82; PULSE 81; RESP 18; TEMP 36.2; O2SAT 97
[2025-04-01 19:48] VITALS: BMI 30.9
--- NOTE | 2025-04-01 19:49 | CM.ED ---
Social Work Patient came to ED requesting detox from heroin and cocaine. SW met with patient who stated she had no questions about the program at this time as she has done it previously. SW also spoke with patient regarding her self-pay status. Patient states she has received a letter in September that she had Medicaid coverage for one year, then received another letter stating they never received her paperwork and she was not covered. SW offered to have Medicaid Specialist speak with patient while admitted. Patient stated she would like to meet with her. Email sent to Kaila from [employer] requesting she meet with patient while at [facility]. Treatment navigator also notified of patients admission to [facility]. Lindsey Marinelli, APPLICATIONS SUPPORT SPECIALIST, DAIRY CLERK
[2025-04-01 20:10] VITALS: BP 145/83; PULSE 63; RESP 18; TEMP 36.8; O2SAT 100
[2025-04-01] MEDS: Ensure Plus High Protein 120 ML LIQUID PO (20:53)
--- OUTSIDE RECORDS SUMMARY | 2025-04-01 20:59 | XMS RPT_ITS | CCD ---
Author Organization [facility] Care Team Providers Care Subeditor Name Role Phone Kathryn Butts Primary Care Provider Jaja Simms Primary Care Provider Kathryn Butts MD Primary Care Provider Kathryn Butts MD Primary Care Provider KATHRYN BUTTS Primary Care Unavailable BHAVIN MANDUJANO Attending Unavailable Dr. Lance Martin Emergency Provider Care Physician, No Primary Primary Care Provider Unavailable Dr. Patricio Mckenzie Admit Provider Dr. Patricio Mckenzie Attending Provider Dr. Patricio Mckenzie Other Provider Dr. Dayami Perez Attending Provider Dr. Dayami Perez Other Provider Dr. Adriel Moore Attending Provider Unavailable Dr. Adriel Moore Other Provider Unavailable Kathryn BUTTS Admitting Unavailable Patricio Mckenzie Consulting Unavailable Care Physician, No Primary Primary Care Unava ilable Adriel Moore Attending Unavailable Patricio Mckenzie Admitting Unavailable Dayami Perez Consulting Unavailable Adriel Moore Consulting Unavailable Dayami Perez Attending Unavailable Patricio Mckenzie Admitting Unavailable Care Physician, No Primary Primary Care Unava ilable Adriel Moore Attending Unavailable Patricio Mckenzie Consulting Unavailable Dayami Perez Consulting Unavailable Care Physician, No Primary Primary Care Unava ilable Patricio Mckenzie Admitting Unavailable Patricio Mckenzie Attending Unavailable Patricio Mckenzie Consulting Unavailable Unavailable Primary Care Provider Unavailabl e BETSEY SHI Referring Unavailable BETSEY SHI Attending Unavailable BETSEY SHI Primary Care Unavailable SELF, SELF Referring Unavailable TAJ, LAXMI Attending Unavailable SELF, SELF Referring Unavailable TAJ, LAXMI Attending Unavailable SELF, SELF Referring Unavailable TAJ, LAXMI Attending Unavailable SELF, SELF Referring Unavailable TAJ, LAXMI Attending Unavailable TAJ, LAXMI Attending Unavailable SELF, SELF Referring Unavailable SELF, SELF Referring Unavailable STEFF LEWIS Attending Unavailable BETSEY SHI Primary Care Unavailable MILES SOUZA Attending Unavailable Allergies Allergy Classification Reported Allergen(s) Allergy Type Date of Onset Reaction(s) Facility Sulfamethoxazole / Trimethoprim (1 source) Sulfamethoxazole / Trimethoprim Drug Allergy 11-02-19 19 [facility] (7 sources) Sulfamethoxazole / Trimethoprim Drug Allergy 11-02-19 19 [place] (1 source) Sulfamethoxazole / Trimethoprim; Translations: [Bactrim] Drug Allergy [facility] (1 source) Sulfonamides (Antibiotic); Translations: [sulfa drugs] Propensity to adverse reactions (disorder) [facility] (1 source) Sulfonamides (Antibiotic); Translations: [SULFA (SULFONAMIDE ANTIBIOTICS)] Propensity to adverse reactions to drug (disorder) 06-29-19 [facility] NEGATED: Highlighted row has been ruled out! (2 sources) Other Propensity to adverse reactions 12-06-19 21 [facility] Medications Current Medications Medication Drug Class(es) Dates Sig (Normalized) Sig (Original) amoxicillin 875 mg / clavulanate 125 mg oral tablet (1 source) Penicillin-class Antibacterial Start: 02-04-2021 End: 02-14-2021 take 1 tablet by mouth twice daily amoxicillin-clavu lanate (AUGMENTIN) 875-125 MG per tablet Take 1 tablet by mouth 2 times daily for 10 days 20 tablet 0 02/04/2021 02/14/2021 Active clindamycin 300 mg oral capsule (1 source) Lincosamide Antibacterial Start: 05-18-2024 End: 05-28-2024 take 1 capsule by mouth three times daily clindamycin 300 MG capsule Take 1 capsule by mouth 3 times daily for 10 days. 30 capsule 05/18/2024 05/28/2024 Active clobetasol propionate 0.0005 mg/mg topical ointment (2 sources) Corticosteroid Start: 11-14-2019 End: 02-04-2021 clobetasol (TEMOVATE) 0.05 % ointment Apply 1 applicator topically 0 11/14/2019 02/04/2021 Discontinued (Therapy completed) cloNIDine hydrochloride 0.1 mg oral tablet (1 source) Central alpha-2 Adrenergic Agonist Start: 02-08-2022 take 1 tablet by mouth twice daily cloNIDine (CATAPRES) 0.1 MG tablet Take 1 tablet by mouth 2 times daily 60 tablet 3 02/08/2022 Active Start: 02-08-2022 take 1 tablet by charissa th twice daily cloNIDine (CATAPRES) 0.1 MG tablet Take 1 tablet by mouth 2 times daily 60 tablet 3 02/08/2022 Active fluconazole 150 mg oral tablet (1 source) Azole Antifungal Start: 10-27-2019 End: 10-27-2019 take 1 tablet by mouth once fluconazole (DIFLUCAN) 150 MG tablet Take 1 tablet by mouth once for 1 dose 1 tablet 0 10/27/2019 10/27/2019 Active gabapentin 400 mg oral capsule (4 sources) Anti-epileptic Agent take 2 capsules by mouth three times daily Gabapentin 400 MG capsule Take 2 capsules by mouth 3 times daily. Active ibuprofen 800 mg oral tablet (5 sources) Nonsteroidal Anti-inflammatory Drug Start: 02-04-2021 take 1 tablet by mouth every eight hours as needed for pain ibuprofen (ADVIL;MOTRIN) 800 MG tablet Take 1 tablet by mouth every 8 hours as needed for Pain 30 tablet 1 02/04/2021 Active Start: 09-05-2020 take 1 tablet by charissa th every eight hours as needed for pain ibuprofen (ADVIL;MOTRIN) 800 MG tablet Take 1 tablet by mouth every 8 hours as needed for Pain 30 tablet 1 09/05/2020 Active nitrofurantoin, macrocrystals 25 mg / nitrofurantoin, monohydrate 75 mg oral capsule (2 sources) Nitrofuran Antibacterial Start: 12-08-2023 End: 2023 take 1 capsule by mouth twice daily Nitrofurantoin, macrocrystal-monohydrate, 100 MG capsule Take 1 capsule by mouth 2 times daily for 7 days. Take w/ food/milk 14 capsule 12/08/2023 2023 Active Start: 10-27-2019 End: 11-03-2019 take 1 capsule by mouth twice daily nitrofurantoin, macrocrystal-monohydrate , (MACROBID) 100 MG capsule Take 1 capsule by mouth 2 times daily for 7 days 14 capsule 0 10/27/2019 11/03/2019 Active omeprazole 40 mg delayed release oral capsule (5 sources) Proton Pump Inhibitor Start: 11-21-2020 take 1 capsule by mouth once daily omeprazole (PRILOSEC) 40 MG delayed release capsule take 1 capsule by mouth once daily 0 11/21/2020 Active End: 02-04-2021 take 2 capsules by mouth once daily omeprazole (PRILOSEC) 20 MG delayed release capsule Take 40 mg by mouth daily 0 02/04/2021 Discontinued (Therapy completed) take 1 capsule by mo uth once daily omeprazole (PRILOSEC) 20 MG delayed release capsule Take 20 mg by mouth daily 0 Active phenazopyridine hydrochloride 200 mg delayed release oral tablet (4 sources) Start: 12-08-2023 End: 12-10-2023 take 1 tablet by mouth three times daily Phenazopyridine 200 MG tablet Take 1 tablet by mouth 3 times daily for 2 days. 6 tablet 12/08/2023 Active Completed/Discontinued Medications Medication Drug Class(es) Dates Sig (Normalized) Sig (Original) ARIPiprazole 5 mg oral tablet (2 sources) Atypical Antipsychotic Start: 11-01-2023 End: 05-14-2024 take 1 tablet by mouth at bedtime Aripiprazole 5 MG tablet Take 1 tablet by mouth at bedtime. 11/01/2023 05/14/2024 Discontinued (Medication Reconciliation (suppress cancel msg)) benzocaine 0.2 mg/mg oral gel (1 source) Standardized Chemical Allergen Start: 02-04-2021 End: 02-04-2021 benzocaine (ORAJEL) 20 % mucosal gel brompheniramine maleate 0.4 mg/ml / dextromethorphan hydrobromide 2 mg/ml / pseudoephedrine hydrochloride 6 mg/ml oral solution (1 source) alpha-Adrenergic Agonist, Uncompetitive R-ltvxdz-G-asparta te Receptor Antagonist, Sigma-1 Agonist Start: 06-01-2024 End: 06-01-2024 take 10 mL by mouth every six hours as needed pseudoephedrine-bro mpheniramine-dextro methorphan 30-2-10 MG/5ML Syrup Take 10 mL by mouth every 6 hours as needed. 473 mL 06/01/2024 06/01/2024 Discontinued (Error) buprenorphine 8 mg sublingual tablet (2 sources) Partial Opioid Agonist Start: 03-14-2023 End: 05-14-2024 take 1 tablet under the tongue twice daily Buprenorphine 8 MG sublingual tablet dissolve 1 tablet under the tongue twice a day 03/14/2023 05/14/2024 Discontinued (Medication Reconciliation (suppress cancel msg)) lidocaine hydrochloride 20 mg/ml mucous membrane topical solution (1 source) Antiarrhythmic, Amide Local Anesthetic Start: 02-04-2021 End: 02-04-2021 lidocaine viscous hcl (XYLOCAINE) 2 % solution 15 mL ondansetron 4 mg oral tablet (4 sources) Serotonin-3 Receptor Antagonist Start: 06-01-2024 End: 06-01-2024 take 1 tablet by mouth every eight hours as needed Ondansetron 4 MG tablet Take 1 tablet by mouth every 8 hours as needed. 10 tablet 06/01/2024 06/01/2024 Discontinued (Error) Start: 05-14-2024 End: 05-18-2024 take 1 tablet by mouth every eight hours as needed Ondansetron 4 MG Tab Dispersible tablet Take 1 tablet by mouth every 8 hours as needed. 10 tablet 05/14/2024 05/18/2024 Discontinued Start: 02-08-2022 End: 02-08-2022 ondansetron (ZOFRAN-ODT) disintegrating tablet 4 mg Problems Active Problems Problem Classification Problem Date Documented Da te Episodic/Chronic Administrative/social admission (2 sources) Encounter for other administrative examinations; Translations: [Encounter for other administrative examinations] Onset: 06-02-2024 Episodic Anxiety disorders (4 sources) Anxiety; Translations: [Anxiety disorder, unspecified] Onset: 12-05-2020 12-05-2020 Chronic Diabetes mellitus with complications (4 sources) Mixed hyperlipidemia due to type 2 diabetes mellitus; Translations: [Type 2 diabetes mellitus with other specified complication] Onset: 12-05-2020 1 Chronic Disorders of lipid metabolism (2 sources) Mixed hyperlipidemia; Translations: [Mixed hyperlipidemia] Onset: 12-05-2020 12-05-2020 Chronic Disorders of teeth and jaw (8 sources) Toothache; Translations: [Other specified disorders of teeth and supporting structures] Onset: 12-05-2020 Episodic Headache; including migraine (2 sources) Migraine; Translations: [Migraine, unspecified, not intractable, without status migrainosus] Onset: 12-05-2020 12-05-2020 Chronic Malaise and fatigue (2 sources) Fatigue; Translations: [Other fatigue] Onset: 02-08-2022 Episodic Miscellaneous mental health disorders (2 sources) Chronic insomnia; Translations: [Psychophysiologic insomnia] Onset: 12-05-2020 12-05-2020 Chronic Mycoses (1 source) Candidiasis of vagina; Translations: [Candidal vaginitis] Episodic Nausea and vomiting (5 sources) Nausea and vomiting; Translations: [Nausea with vomiting, unspecified] Onset: 02-08-2022 Episodic Other gastrointestinal disorders (1 source) Diarrhea; Translations: [Diarrhea, unspecified] 06-01-2024 Episodic Other gastrointestinal disorders (2 sources) Diarrhea, unspecified; Translations: [Diarrhea, unspecified] Onset: 06-02-2024 Episodic Other hereditary and degenerative nervous system conditions (2 sources) Restless legs; Translations: [Restless legs syndrome] Onset: 12-05-2020 12-05-2020 Chronic Other skin disorders (1 source) Facial swelling ; Translations: [Localized swelling, mass and lump, head] Episodic Spondylosis; intervertebral disc disorders; other back problems (2 sources) Other intervertebral disc degeneration, lumbar region; Translations: [Other intervertebral disc degeneration, lumbar region] Onset: 06-16-2023 Chronic Sprains and strains (1 source) Sprain of talofibular ligament of right ankle; Translations: [Sprain of other ligament of right ankle, initial encounter] Episodic Substance-related disorders (2 sources) Nicotine dependence; Translations: [Nicotine dependence, unspecified, uncomplicated] Onset: 12-05-2020 12-05-2020 Chronic Substance-related disorders (4 sources) Opioid withdrawal; Translations: [Opioid use, unspecified with withdrawal] Onset: 03-14-2023 03-11-2023 Episodic Unclassified (2 sources) Body mass index 40+ - severely obese; Translations: [Adult body mass index 40 and over] Onset: 12-05-2020 12-05-2020 Viral infection (4 sources) Viral disease; Translations: [Viral infection, unspecified] Onset: 06-01-2024 05-14-2024 Episodic Past or Other Problems Problem Classification Problem Date Documented Da te Episodic/Chronic Abdominal pain (2 sources) Epigastric pain; Translations: [Epigastric pain] Onset: 12-05-2020 12-05-2020 Episodic Allergic reactions (2 sources) Eczema; Translations: [Dermatitis, unspecified] Onset: 12-05-2020 12-05-2020 Episodic Genitourinary symptoms and ill-defined conditions (5 sources) Increased frequency of urination; Translations: [Frequency of micturition] Onset: 12-05-2020 12-05-2020 Episodic Hepatitis (2 sources) Viral hepatitis C; Translations: [Unspecified viral hepatitis C without hepatic coma] Onset: 12-05-2020 12-05-2020 Episodic Other connective tissue disease (2 sources) Medial epicondylitis; Translations: [Medial epicondylitis, unspecified elbow] Onset: 12-05-2020 12-05-2020 Episodic Other connective tissue disease (2 sources) Tendinitis of wrist; Translations: [Other enthesopathies, not elsewhere classified] Onset: 12-05-2020 12-05-2020 Episodic Other gastrointestinal disorders (2 sources) Heartburn; Translations: [Heartburn] Onset: 12-05-2020 12-05-2020 Episodic Other inflammatory condition of skin (2 sources) Pruritus of vulva; Translations: [Pruritus vulvae] Onset: 12-05-2020 12-05-2020 Episodic Spondylosis; intervertebral disc disorders; other back problems (4 sources) Lumbar radiculopathy; Translations: [Radiculopathy, lumbar region] Onset: 12-05-2020 12-05-2020 Episodic Urinary tract infections (4 sources) Urinary tract infectious disease; Translations: [Hemorrhagic cystitis] Onset: 12-08-2023 12-08-2023 Episodic Varicose veins of lower extremity (2 sources) Varicose 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 : 1980 VISIT DATE: 06/28/2024 CSN: [id number] PCP: Betsey Shi, CONTINUITY EDITOR Chief Complaint Patient presents with Dental Problem Had teeth extracted, concerned for infection Pt ambulates with ease to room 1 c/o mouth pain and states 'i have an infection' from having teeth pulled. Pt is already on penicillin from PCP for said infection. The whole teeth were pulled last Tuesday. Patient did not receive antibiotics. Patient started to take penicillin today. Denied fever, shortness of breath or cough or chest pain. Patient feels like left facial swelling, left side pain is more than right side. Gum swelling. Past Medical History: Diagnosis Date Drug addiction (HCC) Sciatica Past Surgical History: Procedure Laterality Date CHOLECYSTECTOMY TUBAL LIGATION History reviewed. No pertinent family history. Social History [1] Previous Medications Medication Sig buprenorphine-nalOXone (SUBOXONE) 8-[address] 1 (one) tablet under the tongue . (Patient not taking: Reported on 06/28/2024 .) gabapentin (NEURONTIN) 800 MG tablet Take 1 (one) tablet (800 mg total) by mouth 3 (three) times a day (Day . [DISCONTINUED] cyclobenzaprine (FLEXERIL) 10 MG tablet Take 1 (one) tablet (10 mg total) by mouth 3 (three) times a day as needed for muscle spasms Start: 06/06/23. [DISCONTINUED] ketorolac (TORADOL) 10 mg tablet Take 1 (one) tablet (10 mg total) by mouth every 6 (six) hours as needed for pain Start: 06/06/23. Allergies[2] Review of Systems Constitutional: Negative for chills and fever. HENT: Positive for dental problem and facial swelling. Negative for congestion, ear pain, rhinorrhea and sore throat. Eyes: Negative for pain, discharge, redness and visual disturbance. Respiratory: Negative for cough, shortness of breath and wheezing. Cardiovascular: Negative for chest pain and palpitations. Gastrointestinal: Negative for abdominal distention, abdominal pain, constipation, diarrhea and nausea. Genitourinary: Negative for dysuria, frequency and urgency. Musculoskeletal: Negative for back pain. Skin: Negative for rash. Neurological: Negative for headaches. Patient Vitals for the past 24 hrs: BP Temp Temp src Pulse Resp SpO2 Height Weight 06/28/24 1919 (!) 181/89 98.9 degrees F (37.2 degrees C) Oral 88 18 100 % 5' 5 90.7 kg (200 lb) Physical Exam Constitutional: General: She is not in acute distress. HENT: Head: Normocephalic and atraumatic. Comments: All the teeth pulled. Some gums swelling especially left upper side. No drainable abscess. Left facial maxillary area mild swelling and minimal tenderness. Right Ear: Tympanic membrane normal. Left Ear: Tympanic membrane normal. Nose: Nose normal. Mouth/Throat: Mouth: Mucous membranes are moist. Eyes: Extraocular Movements: Extraocular movements intact. Conjunctiva/sclera: Conjunctivae normal. Pupils: Pupils are equal, round, and reactive to light. Cardiovascular: Rate and Rhythm: Normal rate and regular rhythm. Heart sounds: Normal heart sounds. No murmur heard. Musculoskeletal: General: No deformity. Normal range of motion. Cervical back: Normal range of motion and neck supple. No rigidity or tenderness. Pulmonary: Effort: Pulmonary effort is normal. No respiratory distress. Breath sounds: Normal breath sounds. No stridor. No wheezing, rhonchi or rales. Chest: Chest wall: No tenderness. Abdominal: General: Abdomen is flat. Bowel sounds are normal. There is no distension. Palpations: Abdomen is soft. Tenderness: There is no abdominal tenderness. There is no guarding or rebound. Lymphadenopathy: Cervical: No cervical adenopathy. Skin: General: Skin is warm and dry. Capillary Refill: Capillary refill takes less than 2 seconds. Findings: No rash. Neurological: Mental Status: She is alert and oriented to person, place, and time. Cranial Nerves: No cranial nerve deficit. Laboratory & Radiographic Imaging (if done): No results found for this visit on 06/28/24. No orders to display Procedures Medical Decision Making Facial swelling most likely spread from the teeth/gum infection. I will go ahead and treat with Augmentin. Outpatient follow-up with a dentist or PCP. I will also prescribe some nausea medication as needed. The patient has been informed that they may have pre-hypertension or hypertension based on a blood pressure reading in the Emergency Department. I recommend that the patient call the primary care provider listed on their discharge instructions or a physician of their choice as soon as possible to arrange follow-up in the next 4 weeks for further evaluation of possible pre-hypertension or hypertension. . Clinical Impression: 1. Dental infection ED Disposition ED Disposition Discharge Condition Stable Comment Al Berry (more content not included)... Normal [facility] POCT INFLUENZA, A BOrdered B y: Ashlie Oreilly on 06-01-2024 FLUAV RNA LEIGHA+probe Ql (Unsp spec) Negative Negative, Not Tested, Invalid, Not Detected [facility] FLUBV RNA LEIGHA+probe Ql (Unsp spec) Negative Negative, Not Tested, Invalid, Not Detected [facility] Interpretation and review of laboratory results Normal [facility] SARS-COV-2 RAPID AG (WIC)on 06-01-2024 SARS-CoV-2 (COVID-19) RNA LEIGHA+probe Ql (Unsp spec) Not detected Normal NOT DETECTED [facility] Comment on above: Result Comment: Nega tive results should be treated as presumptive and confirmation with a molecular assay, if necessary, for patient management, may be performed. Negative results do not rule out SARSCoV-2 infection and should not be used as the sole basis for treatment or patient management decisions, including infection control decisions. Negative results should be considered in the context of a patient's recent exposures, history and the presence of clinical signs and symptoms consistent with COVID-19. Performed By: #### C COVAG #### [place] [address] NARRATIVE This test was perfor med using lateral flow immunoassay. This test does not differentiate between SARS-CoV and SARS-CoV2. Normal [facility] Comment on above: Performed By: #### C COVAG #### [place] [address] SARS-COV-2 RAPID ANTIGEN (CL INIC ONLY)on 06-01-2024 SARS-CoV-2 (COVID-19) RNA LEIGHA+probe Ql (Unsp spec) This test was performed using lateral flow immunoassay. This test does not differentiate between SARS-CoV and SARS-CoV2. [facility] SARS-CoV-2 (COVID-19) RNA NA A+probe Ql (Unsp spec)on 06-01-2024 SARS-CoV-2 (COVID-19) Ag IA.rapid Ql (Resp) Not detected NOT DETECTED [facility] Comment on above: Negative results david uld be treated as presumptive and confirmation with a molecular assay, if necessary, for patient management, may be performed. Negative results do not rule out SARSCoV-2 infection and should not be used as the sole basis for treatment or patient management decisions, including infection control decisions. Negative results should be considered in the context of a patient's recent exposures, history and the presence of clinical signs and symptoms consistent with COVID-19. [facility] POCT INFLUENZA, A Bon 2024 FLUAV RNA LEIGHA+probe Ql (Unsp spec) Negative Negative, Not Tested, Invalid, Not Detected [facility] FLUBV RNA LEIGHA+probe Ql (Unsp spec) Negative Negative, Not Tested, Invalid, Not Detected [facility] Interpretation and review of laboratory results Normal [facility] Internal controls [place] [facility] SARS-COV-2 RAPID AG (WIC)on 05-14-2024 SARS-CoV-2 (COVID-19) RNA LEIGHA+probe Ql (Unsp spec) Not detected Normal NOT DETECTED [facility] Comment on above: Result Comment: Nega tive results should be treated as presumptive and confirmation with a molecular assay, if necessary, for patient management, may be performed. Negative results do not rule out SARSCoV-2 infection and should not be used as the sole basis for treatment or patient management decisions, including infection control decisions. Negative results should be considered in the context of a patient's recent exposures, history and the presence of clinical signs and symptoms consistent with COVID-19. Performed By: #### C COVAG #### Testing performed at [address] [address] NARRATIVE This test was perfor med using lateral flow immunoassay. This test does not differentiate between SARS-CoV and SARS-CoV2. Normal [facility] Comment on above: Performed By: #### C COVAG #### Testing performed [address] [place] [address] SARS-COV-2 RAPID ANTIGEN (CL INIC ONLY)on 05-14-2024 SARS-CoV-2 (COVID-19) RNA LEIGHA+probe Ql (Unsp spec) This test was performed using lateral flow immunoassay. This test does not differentiate between SARS-CoV and SARS-CoV2. [facility] SARS-CoV-2 (COVID-19) RNA NA A+probe Ql (Unsp spec)on 05-14-2024 SARS-CoV-2 (COVID-19) Ag IA.rapid Ql (Resp) Not detected NOT DETECTED [facility] Comment on above: Negative results david uld be treated as presumptive and confirmation with a molecular assay, if necessary, for patient management, may be performed. Negative results do not rule out SARSCoV-2 infection and should not be used as the sole basis for treatment or patient management decisions, including infection control decisions. Negative results should be considered in the context of a patient's recent exposures, history and the presence of clinical signs and symptoms consistent with COVID-19. [facility] URINE CULTUREon 12-10-2023 Bacteria identified Cx Nom (U) SPECIMEN DESCRIPTION URINE CLEAN CATCH COLONY COUNT >100,000 C/C/ML CULTURE ESCHERICHIA COLI * Result Note: Testing performed at [facility], [place], [place] [address] * REPORT STATUS 12/10/2023 * Result Note: FINAL * ------- ORGANISM ESCHERICHIA COLI * Result Note: ESCHERICHIA COLI * METHOD ATTILA AMPICILLIN >=32 RESISTANT AMPICILLIN/SULBACTAM >=32 RESISTANT CEFTRIAXONE <=1 SUSCEPTIBLE CEFAZOLIN <=4 SUSCEPTIBLE IMIPENEM <=0.25 SUSCEPTIBLE GENTAMICIN <=1 SUSCEPTIBLE TRIMETH-SULFA >=320 RESISTANT AMOXICILLIN/CLAVULANIC A 16 INTERMEDIATE NITROFURANTOIN <=16 SUSCEPTIBLE PIPERACILLIN/TAZOBACTAM <=4 SUSCEPTIBLE LEVOFLOXACIN <=0.12 SUSCEPTIBLE ESBL NEGATIVE ERTAPENEM <=0.5 SUSCEPTIBLE CEFEPIME <=1 SUSCEPTIBLE CEFTAZIDIME <=1 SUSCEPTIBLE Normal [facility] Comment on above: Performed By: #### A URNC #### Testing [facility] [facility] [address] [place] [address] Testing performed at [facility] [address] [place] [address] POCT URINE DIPSTICK AUTOMATE Don 12-08-2023 Amorphous sediment LM Ql (Urine sed) [facility] Appearance (U) cloudy [facility] Bacteria LM Ql (Urine sed) [facility] Bilirubin Ql (U) Negative [facility] Casts LM.LPF (Urine sed) [#/Area] [facility] Color (U) other [facility] Crystals LM Nom (Urine sed) [facility] Epithelial cells.squamous LM.HPF (Urine sed) [#/Area] [facility] Flow cytometry specialist review Fredi (Unsp spec) [Interp] [facility] Glucose Auto test strip (U) [Mass/Vol] Negative mg/dL [facility] Interpretation and review of laboratory results Abnormal [facility] Ketones [Mass/Vol] Negative mg/dL [facility] Leukocyte esterase Qn (U) [facility] Leukocyte esterase Test strip Ql (U) moderate [facility] Microscopic observation Gram stain Nom (Bronch spec) [facility] Nitrite Ql (U) Negative [facility] pH (U) 6.0 [pH] 5 - 7 [facility] Protein Ql (U) Negative mg/dL [facility] RBC LM.HPF (Urine sed) [#/Area] [facility] RBC Ql (U) trace-intact [facility] Specific gravity (U) [Rel density] 1.020 1.001 - 1.035 [facility] Transitional cells LM Ql (Urine sed) [facility] Urobilinogen Qn (U) 0.2 [facility] WBC LM.HPF (Urine sed) [#/Area] [facility] MR LUMBAR SPINE WITHOUT CONT Kasey 06-16-2023 MR LUMBAR SPINE WITHOUT CONTRAST EXAMINATION: MR LUMBAR SPINE WITHOUT CONTRAST HISTORY: Lumbar radiculopathy. Back pain extending into the left lower extremity. COMPARISON: None. Correlation with CT lumbar spine May 27, 2023. TECHNIQUE: MRI lumbar spine without contrast utilizing the following sequences: Sagittal T1, sagittal T2, sagittal STIR, axial T1, and axial T2 weighted imaging. FINDINGS: The last fully formed disc space is considered L5-S1. There is mild straightening of the normal lumbar lordosis. There is no spondylolisthesis. Vertebral body heights are maintained. There is no suspicious osseous lesion. There is intervertebral disc desiccation and intervertebral disc space narrowing at L5-S1. The conus terminates at the L1 level and is normal in caliber and signal. Findings by level: T12-L1: Trace right central disc protrusion. No spinal canal or neural foraminal stenosis. L1-L2: No spinal canal or neural foraminal stenosis. L2-L3: No spinal canal or neural foraminal stenosis. L3-L4: No spinal canal or neural foraminal stenosis. L4-L5: No spinal canal or neural foraminal stenosis. L5-S1: Disc osteophyte complex and superimposed large left subarticular disc extrusion with inferior migration of the extruded segment that effaces the left lateral recess and contacts the traversing left S1 nerve root. The extruded segment measures of 1.1 x 1.1 x 1.6 cm, probably not substantially changed in size accounting for differences in modality. Mild left facet arthrosis. Mild spinal canal stenosis, however with effacement of both lateral recess. Mild right and moderate left neural foraminal stenosis. IMPRESSION: Disc osteophyte complex and superimposed large left subarticular disc extrusion with inferior migration of the extruded segment at L5-S1 that effaces the left lateral recess, contacts the traversing left S1 nerve root, and contributes to mild spinal canal stenosis and moderate left neural foraminal stenosis. Workstation ID: [id number] Dictated by: VINCE MITCHELL on TueJun 16, 2023 11:38:30 AM EST Transcribed by: VINCE MITCHELL on TueJun 16, 2023 11:38:30 AM EST Finalized by: VINCE MITCHELL on TueJun 16, 2023 11:38:30 AM EST Normal [facility] Comment on above: Order Comment: PT/FA X, MRI LUMBAR SACRAL SPINE Injury/Trauma or Illness?:Illness/Other How long have you had these symptoms (acute/chronic)?:Chronic Reason for exam?:Degeneration of lumbar intervertebral disc, Lumbar radiculopathy Type of Exam?:Initial Additional signs and symptoms?:lt leg pain Provider Letteron 03-17-2023 Provider Letter (Inserted Image. Blanca ble to display) March 17, 2023 AL SEGUNDO [address] [place] [address] : 1980 Dear Al, We have been trying to reach you with no success. It is important that you return our call upon receiving this letter. Also, at the time of your call, please provide us with your current information. Thank you for your prompt attention to this matter. Sincerely, [facility] [address] [place] [address] [facility] H AND P Exam - [facility] 03-12-2023 H&P Exam - Hospitalist [facility] Medical Records Department [address] [place] [address] H P Exam - Hospitalist 03/11/23 2248 MR#: [id number] Acct: [id number] Name: AL SEGUNDO Rep #: [id number] : 1980 42 From: Patricio Mckenzie DO PCP: Care Physician,No Primary Status:ADM IN Location: [facility] [id number] HPI - General General Date of Admission: 03/11/23 Date of Service: 03/11/23 Chief Complaint: Requesting opiate withdrawal treatment HPI Narrative AL SEGUNDO, is a 42 F who presents requesting treatment for opiate withdrawal. Patient smokes heroin in addition to using cocaine and marijuana. Patient's last use was about 2 days ago. She is try to do this on her own but the symptoms of her opiate withdrawal became too intense. Been ex periencing nausea, severe abdominal cramps and feeling that her bones are being crushed. Patient bae d been sober for period of time but relapsed and December 2021 and has been using opiates ever [facility] Medical History (Updated 03/11/23 @ 22:[address] Patricio Mckenzie DO) Diabetes mellitus, type 2 Allergy/AdvReac Type Severity Reaction Status Date / Time No Known Allergies Allergy Verified 03/11/23 18:18 Family History (Updated 03/11/23 @ 22:[address] Patricio Mckenzie DO) Other Diabetes Social History (Updated 03/11/23 @ 22:[address] Patricio Mckenzie, DO) Smoking Status: Current every day smoker tobacco type: cigarettes alcohol intake: former substance use type: marijuana, crack/cocaine and heroin ROS ROS Narrative All review of systems were negative except as mentioned above in the history of present illness and the other review of systems. Vital Signs Vital Signs Vital Signs: 03/11/23 18:18 03/11/23 21:23 Temperature 36.3 C L 35.9 C L Temperature Source Temporal Pulse Rate 160 H 63 Respiratory Rate 22 H 16 Blood Pressure 108/81 H 145/89 H Blood Pressure Mean 90 107 Pulse Ox 96 96 Oxygen Delivery Method Room Air Weight Weight: 93.7 kg Body Mass Index (BMI) 33.3 Physical Exam Const alert and no apparent distress HEENT normocephalic and head/scalp atraumatic Resp normal respiratory effort, no retractions, no use of accessory muscles and clear to auscultation bilaterally Cardio regular rate, regular rhythm, S1 normal heart sound and S2 normal heart sound GI normal to inspection, nondistended, normoactive bowel sounds, soft to palpation, non-tender and non- distended Extremity normal to inspection and full ROM Neuro moves all extremities Sensorium / Orientation: awake and alert Psych affect normal Results Lab / Micro Data 03/11/23 19:30 03/11/23 19:30 Labs: Laboratory Results - last 24 hr 03/11/23 19:30: WBC 11.0, RBC 5.53 H, Hgb 15.9 H, Hct 47.5 H, MCV 85.9, MCH 28.8, MCHC 33.5, RDW Std Deviation 42.3, RDW Coeff of Terrence 13.4, Plt Count 188, MPV 11.2, Immature Gran % (Auto) 0.300, Neut % (Auto) 66.9, Lymph % (Auto) 26.5, [place] % (Auto) 5.7, Eos % (Auto) 0.5, Baso % (Auto) 0.1, Absolute Neuts (auto) 7.3, Absolute Lymphs (auto) 2.90, Nucleated RBC % 0, Sodium 139, Potassium 3.7, Chloride 108 H, Carbon Dioxide 25.0, Anion Gap 6, BUN 12, Creatinine 0.91, Estim Creat Clear Calc 73.85, Est GFR (MDRD) Af Amer 86, Est GFR (MDRD) Non-Af 71, BUN/Creatinine Ratio 13.2, Glucose 110 H , Calcium 9.1, Total Bilirubin 0.50, AST 11 L, ALT 21, Alkaline Phosphatase 71, Troponin I High Sens 14, Total Protein 8.4 H, Albumin 3.8, Globulin 4.6 H, Albumin/Globulin Ratio 0.8 L, Urine Test Negative, Urine Opiates Screen NEGATIVE, Urine Methadone Screen NEGATIVE, Ur Barbiturates Screen NEGATIVE, Ur Phencyclidine Scrn NEGATIVE, Ur Amphetamines Screen NEGATIVE, MDMA (Ecstasy) Screen POSITIVE H, U Benzodiazepines Scrn NEGATIVE, Urine Cocaine Screen NEGATIVE, U Cannabinoids Screen POSITIVE H, Ur Drug Screen Comment , Ethyl Alcohol < 3.0 Assessment Plan Assessment/Plan (1) Opiate withdrawal: PLAN: Patient had tried doing this on her own and quit 2 days prior to admission. Symptoms were too intense for her at home. Patient will be initiated on buprenorphine taper as well as other agents to help with other somatic complaints as needed from her withdrawal. Patient understands that she will be here for about 3 days and then look at having addiction medicine evaluate her on Tuesday to see about some outpatient programs that she may benefit from. She is open to the program and willing to proceed to discuss with addiction medicine on Tuesday. PLAN: Plan History of diabetes mellitus type 2: Patient had been on medications before but had been taken off by her primary care doctor this is reportedly her blood sugar doing fairly well. Blood sugar here is 110. She does not follow diabetic diet. Recommend that she follow-up with her primary care provider as outpatient. VTE prophyla (more content not included)... Normal [facility] 12 Lead EKGon 03-11-2023 12 Lead EKG [facility] [address] [place] [address] 12 Lead EKG 03/11/23 1930 MR#: [id number] Acct: [id number] Name: AL SEGUNDO Rep #: [id number] : 1980 42 From: Jerry Molina MD Attending Dr: Dr. Adriel Moore MD Status: ADM IN Ordering Dr: Lance Martin DO Date: 03/11/23 Location: [facility] Sex: F C Admitted: 12/01/23 Test Reason : DYSRHYTHMIA Blood Pressure : / mmHG Vent. Rate : 068 BPM Atrial Rate : 068 BPM P-R Int : 142 ms QRS Dur : 068 ms QT Int : 402 ms P-R-T Axes : 073 007 043 degrees QTc Int : 427 ms Normal sinus rhythm Normal ECG Confirmed by ERASTO AGUILA, JERRY ([id number]), international editorial producer MAC STAFFORD ([id number]) on 03/14/2023 10:16:42 AM Referred By: SID Confirmed By:JERRY MOLINA MD 03/14/23 1016 Date Jerry Molina MD CC: Dr. Adriel Moore MD; Dr. Lance Martin, DO; No Primary Care Physician Signed Normal [facility] Absolute lymphocyte countOrd ered By: Lance Martin on 03-11-2023 Lymphocytes Auto (Unsp spec) [#/Vol] 2.90 10*3/uL 0.83-4.51 [facility] Alcohol, Blood (Medical)-Ser umon 03-11-2023 SERUM ETOH < 3.0 Normal [facility] Comment on above: Result Comment: The serum:whole blood ethanol ratio is approximately 1.14 and varies slightly with hematocrit. Medical Alcohol reference interval and critical value in non-tolerant individuals; 50 - 100 Impairment 100 Intoxication 100 - 250 Severe Poisoning 250 - 400 Deep/possible fatal coma Performed By: #### L 505.5000, L100.0100, L501.9100, L500.4050, L501.4020 #### [facility] [address] [place], [address] Basophil percentageOrdered B y: Lance Martin on 03-11-2023 Basophils/100 WBC (Bld) 0.1 % 0-1 [facility] Bilirubin [Mass/Vol] 0.50 mg/dL 0.20-1.00 [facility] Comment on above: For patients on eltr ombopag therapy, use of Dimension [place] TBIL is not recommended. Chloride [Moles/Vol] 108 mmol/L 98-107 [facility] Eosinophils/100 WBC (Bld) 0.5 % 0-5 [facility] Glucose [Mass/Vol] 110 mg/dL 74-106 [facility] Comment on above: Fasting Glucose resu lt from 100 to 125 mg/dL suggests IMPAIRED HOMEOSTASIS per A.D.A. criteria. Neutrophils (Bld) [#/Vol] 7.3 10*3/uL 2.0-7.7 [facility] Neutrophils/100 WBC (Bld) 66.9 % 47-70 [facility] Potassium [Moles/Vol] 3.7 mmol/L 3.5-5.[address] [facility] Protein [Mass/Vol] 8.4 g/dL 6.4-8.2 [facility] Sodium [Moles/Vol] 139 mmol/L 136-145 [facility] WBC (Bld) [#/Vol] 11.0 10*3/uL 4.4-11.0 [facility] Blood erythrocytes count (nu mber/volume)Ordered By: Lance Martin on 03-11-2023 RBC (Bld) [#/Vol] 5.53 10*6/uL 4.2-5.4 [facility] Blood hemoglobin measurement (mass/volume)Ordered By: Lance Martin on 03-11-2023 Hemoglobin (Bld) [Mass/Vol] 15.9 g/dL 12.0-15.0 [facility] Blood lymphocytes/100 leukoc ytesOrdered By: Lance Martin on 03-11-2023 Lymphocytes/100 WBC (Bld) 26.5 % 19-41 [facility] Blood monocytes/100 leukocyt esOrdered By: Lance Martin on 03-11-2023 Monocytes/100 WBC (Bld) 5.7 % 0-10 [facility] Blood platelet mean volumeOr dered By: Lance Martin on 03-11-2023 Platelet mean volume (Bld) [Entitic vol] 11.2 fL 6.2-12.0 [facility] CBC W/Diff, Automatedon - Absolute Lymph 2.90 X10 3/uL Normal 0.83-4.51 [facility] Comment on above: Performed By: #### L 505.5000, L100.0100, L501.9100, L500.4050, L501.4020 #### [facility] [address] [place], [address] Absolute Neut 7.3 X10 3/uL Normal 2.0-7.7 [facility] Comment on above: Performed By: #### L 505.5000, L100.0100, L501.9100, L500.4050, L501.4020 #### [facility] [address] [place], [address] Basophils/100 WBC (Bld) 0.1 % Normal 0-1 [facility] Comment on above: Performed By: #### L 505.5000, L100.0100, L501.9100, L500.4050, L501.4020 #### [facility] [address] [place], [address] Eosinophils/100 WBC (Bld) 0.5 % Normal 0-5 [facility] Comment on above: Performed By: #### L 505.5000, L100.0100, L501.9100, L500.4050, L501.4020 #### [facility] [address] [place], [address] Erythrocyte distribution width (RBC) [Ratio] 13.4 % Normal 11.6-14.6 [facility] Comment on above: Performed By: #### L 505.5000, L100.0100, L501.9100, L500.4050, L501.4020 #### [facility] [address] [place], [address] Hematocrit (Bld) [Volume fraction] 47.5 % High 37-47 [facility] Comment on above: Performed By: #### L 505.5000, L100.0100, L501.9100, L500.4050, L501.4020 #### [facility] [address] [place], [address] Hemoglobin (Bld) [Mass/Vol] 15.9 g/dL High 12.0-15.0 [facility] Comment on above: Performed By: #### L 505.5000, L100.0100, L501.9100, L500.4050, L501.4020 #### [facility] [address] [place], [address] IG% 0.300 Normal 0.0-0.9 [facility] Comment on above: Result Comment: IG% - Immature Granulocytes (promyelocytes, myelocytes and metamyelocytes) > 1% indicates that a LEFT SHIFT is Present. Performed By: #### L 505.5000, L100.0100, L501.9100, L500.4050, L501.4020 #### [facility] [address] [place], [address] Lymphocytes/100 WBC (Bld) 26.5 % Normal 19-41 [facility] Comment on above: Performed By: #### L 505.5000, L100.0100, L501.9100, L500.4050, L501.4020 #### [facility] [address] [place], [address] MCH (RBC) [Entitic mass] 28.8 pg Normal 27.0-32.0 [facility] Comment on above: Performed By: #### L 505.5000, L100.0100, L501.9100, L500.4050, L501.4020 #### [facility] [address] [place], [address] MCHC (RBC) [Mass/Vol] 33.5 g/dL Normal 32-[address] [facility] Comment on above: Performed By: #### L 505.5000, L100.0100, L501.9100, L500.4050, L501.4020 #### [facility] [address] [place], [address] MCV (RBC) [Entitic vol] 85.9 fL Normal 81-99 [facility] Comment on above: Performed By: #### L 505.5000, L100.0100, L501.9100, L500.4050, L501.4020 #### [facility] [address] [place], [address] Monocytes/100 WBC (Bld) 5.7 % Normal 0-10 [facility] Comment on above: Performed By: #### L 505.5000, L100.0100, L501.9100, L500.4050, L501.4020 #### [facility] [address] [place], [address] Neutrophils/100 WBC (Bld) 66.9 % Normal 47-70 [facility] Comment on above: Performed By: #### L 505.5000, L100.0100, L501.9100, L500.4050, L501.4020 #### [facility] [address] [place], [address] Nucleated RBC (Bld) [#/Vol] 0 10*3/uL Normal 0-5 [facility] Comment on above: Performed By: #### L 505.5000, L100.0100, L501.9100, L500.4050, L501.4020 #### [facility] [address] [place], [address] Platelet mean volume (Bld) [Entitic vol] 11.2 fL Normal 6.2-12.0 [facility] Comment on above: Performed By: #### L 505.5000, L100.0100, L501.9100, L500.4050, L501.4020 #### [facility] [address] [place], [address] Platelets (Bld) [#/Vol] 188 10*3/uL Normal 150-450 [facility] Comment on above: Performed By: #### L 505.5000, L100.0100, L501.9100, L500.4050, L501.4020 #### [facility] [address] [place], [address] RBC (Bld) [#/Vol] 5.53 10*6/uL High 4.2-5.4 [facility] Comment on above: Performed By: #### L 505.5000, L100.0100, L501.9100, L500.4050, L501.4020 #### [facility] [address] [place], [address] RDW SD 42.3 fl Normal 35.1-43.9 [facility] Comment on above: Performed By: #### L 505.5000, L100.0100, L501.9100, L500.4050, L501.4020 #### [facility] [address] [place], [address] WBC (Bld) [#/Vol] 11.0 10*3/uL Normal 4.4-11.0 [facility] Comment on above: Performed By: #### L 505.5000, L100.0100, L501.9100, L500.4050, L501.4020 #### [facility] [address] [place], [address] Comprehensive Metabolic Prof [facility] 03-11-2023 Albumin [Mass/Vol] 3.8 g/dL Normal 3.2-5.0 [facility] Comment on above: Order Comment: 'TROP ' Serial specimen #1, #2 or #3: 1 Performed By: #### L 505.5000, L100.0100, L501.9100, L500.4050, L501.4020 #### [facility] [address] [place], [address] Albumin/Globulin [Mass ratio] 0.8 {ratio} Low 0.9-2.4 [facility] Comment on above: Order Comment: 'TROP ' Serial specimen #1, #2 or #3: 1 Performed By: #### L 505.5000, L100.0100, L501.9100, L500.4050, L501.4020 #### [facility] [address] [place], [address] ALK P 71 U/L Normal 45-117 [facility] Comment on above: Order Comment: 'TROP ' Serial specimen #1, #2 or #3: 1 Performed By: #### L 505.5000, L100.0100, L501.9100, L500.4050, L501.4020 #### [facility] [address] [place], [address] ALT [Catalytic activity/Vol] 21 U/L Normal 13-56 [facility] Comment on above: Order Comment: 'TROP ' Serial specimen #1, #2 or #3: 1 Performed By: #### L 505.5000, L100.0100, L501.9100, L500.4050, L501.4020 #### [facility] [address] [place], [address] AST [Catalytic activity/Vol] 11 U/L Low 15-37 [facility] Comment on above: Order Comment: 'TROP ' Serial specimen #1, #2 or #3: 1 Performed By: #### L 505.5000, L100.0100, L501.9100, L500.4050, L501.4020 #### [facility] [address] [place], [address] Bilirubin [Mass/Vol] 0.50 mg/dL Normal 0.20-1.00 [facility] Comment on above: Order Comment: 'TROP ' Serial specimen #1, #2 or #3: 1 Result Comment: For patients on eltrombopag therapy, use of Dimension [place] TBIL is not recommended. Performed By: #### L 505.5000, L100.0100, L501.9100, L500.4050, L501.4020 #### [facility] [address] [place], [address] BUN/CRE 13.2 RATIO Normal 10-20 [facility] Comment on above: Order Comment: 'TROP ' Serial specimen #1, #2 or #3: 1 Performed By: #### L 505.5000, L100.0100, L501.9100, L500.4050, L501.4020 #### [facility] [address] [place], [address] CA,Total 9.1 mg/dL Normal 8.5-10.1 [facility] Comment on above: Order Comment: 'TROP ' Serial specimen #1, #2 or #3: 1 Performed By: #### L 505.5000, L100.0100, L501.9100, L500.4050, L501.4020 #### [facility] [address] [place], [address] Chloride [Moles/Vol] 108 mmol/L High 98-107 [facility] Comment on above: Order Comment: 'TROP ' Serial specimen #1, #2 or #3: 1 Performed By: #### L 505.5000, L100.0100, L501.9100, L500.4050, L501.4020 #### [facility] [address] [place], [address] CO2 [Moles/Vol] 25.0 mmol/L Normal 21.0-32.0 [facility] Comment on above: Order Comment: 'TROP ' Serial specimen #1, #2 or #3: 1 Performed By: #### L 505.5000, L100.0100, L501.9100, L500.4050, L501.4020 #### [facility] [address] [place], [address] Creatinine [Mass/Vol] 0.91 mg/dL Normal 0.55-1.[address] [facility] Comment on above: Order Comment: 'TROP ' Serial specimen #1, #2 or #3: 1 Result Comment: The validity of the calculated GFR GFRAA in patients over 70 years has not been determined. Clinical correlation is essential. Performed By: #### L 505.5000, L100.0100, L501.9100, L500.4050, L501.4020 #### [facility] [address] [place], [address] ECRCL 73.85 ml/min Normal [facility] Comment on above: Order Comment: 'TROP ' Serial specimen #1, #2 or #3: 1 Performed By: #### L 505.5000, L100.0100, L501.9100, L500.4050, L501.4020 #### [facility] [address] [place], [address] EST GFR - AA 86 mL/min Normal >60 [facility] Comment on above: Order Comment: 'TROP ' Serial specimen #1, #2 or #3: 1 Result Comment: Afri can [place]ian GFR Calc Performed By: #### L 505.5000, L100.0100, L501.9100, L500.4050, L501.4020 #### [facility] [address] [place], [address] GAP 6 Normal 5-15 [facility] Comment on above: Order Comment: 'TROP ' Serial specimen #1, #2 or #3: 1 Performed By: #### L 505.5000, L100.0100, L501.9100, L500.4050, L501.4020 #### [facility] [address] [place], [address] GFR/1.73 sq M.predicted among non-blacks MDRD (S/P/Bld) [Vol rate/Area] 71 mL/min/{1.73_m2} Normal >60 [facility] Comment on above: Order Comment: 'TROP ' Serial specimen #1, #2 or #3: 1 Result Comment: Non- GFR Calc Performed By: #### L 505.5000, L100.0100, L501.9100, L500.4050, L501.4020 #### [facility] [address] [place], [address] Globulin (S) [Mass/Vol] 4.6 g/dL High 2.2-4.2 [facility] Comment on above: Order Comment: 'TROP ' Serial specimen #1, #2 or #3: 1 Performed By: #### L 505.5000, L100.0100, L501.9100, L500.4050, L501.4020 #### [facility] [address] [place], [address] Glucose [Mass/Vol] 110 mg/dL High 74-106 [facility] Comment on above: Order Comment: 'TROP ' Serial specimen #1, #2 or #3: 1 Result Comment: Fast ing Glucose result from 100 to 125 mg/dL suggests IMPAIRED HOMEOSTASIS per A.D.A. criteria. Performed By: #### L 505.5000, L100.0100, L501.9100, L500.4050, L501.4020 #### [facility] [address] [place], [address] Potassium [Moles/Vol] 3.7 mmol/L Normal 3.5-5.[address] [facility] Comment on above: Order Comment: 'TROP ' Serial specimen #1, #2 or #3: 1 Performed By: #### L 505.5000, L100.0100, L501.9100, L500.4050, L501.4020 #### [facility] [address] [place], [address] Sodium [Moles/Vol] 139 mmol/L Normal 136-145 [facility] Comment on above: Order Comment: 'TROP ' Serial specimen #1, #2 or #3: 1 Performed By: #### L 505.5000, L100.0100, L501.9100, L500.4050, L501.4020 #### [facility] [address] [place], [address] T PROT 8.4 g/dL High 6.4-8.2 [facility] Comment on above: Order Comment: 'TROP ' Serial specimen #1, #2 or #3: 1 Performed By: #### L 505.5000, L100.0100, L501.9100, L500.4050, L501.4020 #### [facility] [address] [place], [address] Urea nitrogen [Mass/Vol] 12 mg/dL Normal 7-18 [facility] Comment on above: Order Comment: 'TROP ' Serial specimen #1, #2 or #3: 1 Performed By: #### L 505.5000, L100.0100, L501.9100, L500.4050, L501.4020 #### [facility] [address] [place], [address] Determination of erythrocyte mean corpuscular volume (MCV)Ordered By: Lance Martin on 03-11-2023 MCV (RBC) [Entitic vol] 85.9 fL 81-99 [facility] Emergency Department Summary on 03-11-2023 Emergency Department Summary [facility] Medical Records Department [address] [facility] [place] [address] Emergency Department Summary 03/11/23 MR#: [id number] Acct: [id number] Name: ABAAL Rep #: [id number] : 1980 42 From: Lance Martin DO PCP: Care Physician,No Primary Status:REG ER Location: ED HPI History of Present Illness Chief Complaint: Substance Abuse Narrative Narrative: 2-year-old female presenting for opioid detox. She states she uses heroin and is not sure if uses fentanyl. Last use was 2 days ago. She states she feels like her body is caving in on her for today. She is unable to walk without getting tachycardic. She feels rundown. Last detox was over a year ago. She currently smokes heroin and does not inject it. She states that 4 years ago she used to injected. Patient requesting detox due to his symptoms. Denies any significant medical problems otherwise PFSH PFSH Allergy/AdvReac Type Severity Reaction Status Date / Time No Known Allergies Allergy Verified 03/11/23 18:18 Social History Smoking Status: Current every day smoker tobacco type: cigarettes ROS ROS ED Constitutional Constitutional ED: Denies chills, fever(s) or sweats Eyes Eyes: Denies blurry vision or change in vision ENT ENT ED: Denies ear pain or sore throat Cardiovascular Cardiovascular: Denies chest pain, palpitations or racing heartbeat Respiratory/Chest Respiratory/Chest: Denies cough, dyspnea or sputum Gastrointestinal Gastrointestinal: Denies abdominal pain, constipation, diarrhea, nausea or vomiting Genitourinary Genitourinary ED: Denies dysuria, hematuria or urinary frequency Musculoskeletal Musculoskeletal: Denies arthralgias, myalgias or neck pain Integumentary Denies abscess, Abrasions or rash Neurologic Neurologic: Denies headache(s), paresthesias or weakness Psychiatric Psychiatric: Denies anxiety, depression, suicidal ideation or suicidal thoughts Endocrine Endocrinology: Denies polydipsia or polyuria EXAM Physical Exam Const Vital Signs: 03/11/23 18:18 03/11/23 21:23 Temperature 97.3 F L 96.6 F L Temperature Source Temporal Pulse Rate 160 H 63 Respiratory Rate 22 H 16 Blood Pressure 108/81 H 145/89 H Blood Pressure Mean 90 107 Pulse Ox 96 96 Oxygen Delivery Method Room Air Positive well nourished General Appearance ED: NAD; Negative for pallor HEENT Reports moist mucous membranes atraumatic Eyes PERRL and EOMs intact bilaterally Neck no lymphadenopathy Resp normal respiratory effort and clear to auscultation bilaterally Auscultation: Negative for rales, rhonchi or wheezes Cardio regular rate Rate: tachycardic GI soft to palpation Neuro oriented x3 and CN's II-XII intact bilaterally Sensorium / Orientation: alert Psych mental status grossly normal and thought process normal Skin General Skin Exam: Negative for jaundice or pallor MDM MDM MDM Narrative Medical decision making narrative: Patient presenting for opioid detox. Appropriate lab work was obtained. Patient noted to be tachycardic at 160 on arrival. I obtained an EKG to make sure there is no dysrhythmia associated with the my interpretation of the EKG is sinus rhythm with a ventricular rate of 68 bpm without sign of ischemic change or ectopy. CBC, CMP unremarkable. Screen positive for the boys and MDMA. Negative for opiates. She is unsure if she is using fentanyl. High-sensitivity troponin was 14. Because of the tachycardia patient was given IV fluids. Since her work-up is ultimately normal. Her admitted and speak to the hospitalist. Impression: 1. History of opioid abuse 2. Presentation for opioid detox 3. Tachycardia???resolved Lab Data Attestation: I reviewed the patient's lab results. Labs: Laboratory Results - last 24 hr 03/11/23 19:30 WBC 11.0 RBC 5.53 H Hgb 15.9 H Hct 47.5 H MCV 85.9 MCH 28.8 MCHC 33.5 RDW Std Deviation 42.3 RDW Coeff of Terrence 13.4 Plt Count 188 MPV 11.2 Immature Gran % (Auto) 0.300 Neut % (Auto) 66.9 Lymph % (Auto) 26.5 [place] % (Auto) 5.7 Eos % (Auto) 0.5 Baso % (Auto) 0.1 Absolute Neuts (auto) 7.3 Absolute Lymphs (auto) 2.90 Nucleated RBC % 0 Sodium 139 Potassium 3.7 Chloride 108 H Carbon Dioxide 25.0 Anion Gap 6 BUN 12 Creatinine 0.91 Estim Creat Clear Calc 73.85 Est GFR (MDRD) Af Amer 86 Est GFR (MDRD) Non-Af 71 BUN/Creatinine Ratio 13.2 Glucose 110 H Calcium 9.1 Total Bilirubin 0.50 AST 11 L ALT 21 Alkaline Phosphatase 71 Troponin I High Sens 14 Total Protein 8.4 H Albumin 3.8 Globulin 4.6 H Albumin/Globulin Ratio 0.8 L Urine Test Negative Urine Opiates Screen NEGATIVE Urin (more content not included)... Normal [facility] Hematocrit Auto (Bld) [Volum e fraction]Ordered By: Lance Martin on 03-11-2023 Hematocrit (Bld) [Volume fraction] 47.5 % 37-47 [facility] L501.4020on 03-11-2023 TROPONIN-I HS 14 pg/mL Normal 3.0-54.0 [facility] Comment on above: Order Comment: 'TROP ' Serial specimen #1, #2 or #3: 1 Result Comment: Jocelyn seay Note: New Test Units and Gender Specific Reference Ranges. For more information see Policy Stat Procedure [place] High Sensitivity Troponin (TNIH) and attachments. Performed By: #### L 505.5000, L100.0100, L501.9100, L500.4050, L501.4020 #### [facility] [address] [place], [address] Laboratory - Chemistry and C hemistry - challengeOrdered By: Lance Martin on 03-11-2023 ALP [Catalytic activity/Vol] 71 U/L 45-117 [facility] ALT [Catalytic activity/Vol] 21 U/L 13-56 [facility] CO2 [Moles/Vol] 25.0 mmol/L 21.0-32.0 [facility] Globulin (S) [Mass/Vol] 4.6 g/dL 2.2-4.2 [facility] HCG ( test) Ql (U) Negative [facility] Comment on above: Very dilute urine sp ecimens, as indicated by a low specificgravity, may not contain territory representative levels of hCG. If is still suspected, a first morning urinespecimen should be collected 48 hours later and tested. Urea nitrogen/Creatinine [Mass ratio] 13.2 mg/mg 10-20 [facility] - Drug toxicology Ordered By: Lance Martin on 03-11-2023 Amphetamines Ql (U) Negative <1000 ng/mL [facility] Benzodiazepines Ql (U) Negative < 200 ng/mL [facility] Cannabinoids Screen Ql (U) Positive < 50 ng/mL [facility] Cocaine Ql (U) Negative < 300 ng/mL [facility] Opiates Ql (U) Negative < 300 ng/mL [facility] - Hematology and Cell countsOrdered By: Lance Martin on 03-11-2023 Erythrocyte distribution width (RBC) [Entitic vol] 42.3 fL 35.1-43.9 [facility] Erythrocyte distribution width (RBC) [Ratio] 13.4 % 11.6-14.6 [facility] Immature granulocytes/100 WBC (Bld) 0.300 % 0.0-0.9 [facility] Comment on above: IG% - Immature Granu locytes (promyelocytes, myelocytes and metamyelocytes) > 1% indicates that a LEFT SHIFT is Present. MCH (RBC) [Entitic mass] 28.8 pg 27.0-32.0 [facility] Nucleated RBC/100 WBC (Bld) [Ratio] 0 % 0-5 [facility] MCHC Auto (RBC) [Mass/Vol]Or dered By: Lance Martin on 03-11-2023 MCHC (RBC) [Mass/Vol] 33.5 g/dL 32-[address] [facility] No Panel InformationOrdered By: Lance Martin on 03-11-2023 Estimated Creatinine Clearance Calc 73.85 ml/min [facility] Estimated GFR (MDRD) Amer 86 mL/min >60 [facility] Comment on above: GFR Calc Estimated GFR (MDRD) Non-Af Amer 71 mL/min >60 [facility] Comment on above: Non- GFR Calc Ethyl Alcohol Level < 3.0 mg/dL [facility] Comment on above: The serum:whole bloo d ethanol ratio is approximately 1.14and varies slightly with hematocrit. Medical Alcohol reference interval and critical value innon-tolerant individuals; 50 - 100 Impairment 100 Intoxication 100 - 250 Severe Poisoning 250 - 400 Deep/possible fatal coma MDMA (Ecstasy) Screen Positive < 500 ng/mL [facility] Troponin I High Sensitivity 14 pg/mL 3.0-54.0 [facility] Comment on above: Please Note: New Smita t Units and Gender Specific Reference Ranges. For more information see Policy Stat Procedure [place] High Sensitivity Troponin (TNIH) and attachments. Urine Barbiturates Screen Negative < 200 ng/mL [facility] Urine Drug Screen Comment [facility] Comment on above: CONFIRMATORY TESTING FOR ALL POSITIVE URINE DRUG SCREENRESULTS WILL ONLY BE SENT OUT UPON PHYSICIAN ORDER. VISTA Urine Drug Screen methods provide only preliminaryanalytical test results. A more specific alternate chemicalmethod must be used in order to obtain a confirmedanalytical result. Gas chromatography/mass spectrometery(GC/MS) is the preferred confirmatory method. Clinicalconsideration and professional judgement should be appliedto any drug of abuse test result, particularly whenpreliminary positive results are used. URINE TCA TESTING MUST BE ORDERED SEPARATELY. USE TESTMNEMONIC: [facility] Urine Methadone Screen Negative < 300 ng/mL [facility] Platelets bldOrdered By: Moe Martin on 03-11-2023 Platelets (Bld) [#/Vol] 188 10*3/uL 150-450 [facility] ,Urineon 03-11-2023 Beta HCG ( test) Ql (U) Negative Normal [facility] Comment on above: Result Comment: Very dilute urine specimens, as indicated by a low specific gravity, may not contain territory representative levels of hCG. If is still suspected, a first morning urine specimen should be collected 48 hours later and tested. Performed By: #### L 400.7600 #### [facility] [address] [place], [place], [address] Serum or plasma albumin michael urement (mass/volume)Ordered By: Lance Martin on 03-11-2023 Albumin [Mass/Vol] 3.8 g/dL 3.2-5.0 [facility] Serum or plasma albumin/glob ulin mass ratioOrdered By: Lance Martin on 03-11-2023 Albumin/Globulin [Mass ratio] 0.8 {ratio} 0.9-2.4 [facility] Serum or plasma calcium michael urement (mass/volume)Ordered By: Lance Martni on 03-11-2023 Calcium [Mass/Vol] 9.1 mg/dL 8.5-10.1 [facility] Serum or plasma creatinine m easurement (mass/volume)Ordered By: Lance Martin on 03-11-2023 Creatinine [Mass/Vol] 0.91 mg/dL 0.55-1.[address] [facility] Comment on above: The validity of the calculated GFR & GFRAA in patients over 70 years has not been determined. Clinical correlation is essential. Serum or plasma urea nitroge n measurement (mass/volume)Ordered By: Lance Martin on 03-11-2023 Urea nitrogen [Mass/Vol] 12 mg/dL 7-18 [facility] Thin prep Papanicolaou smear with manual screeningOrdered By: Lance Martin on 03-11-2023 Thin prep Papanicolaou smear with manual screening 11 U/L 15-37 [facility] Thin prep Papanicolaou smear with manual screening 6 5-15 [facility] Urine Drug Screen (VISTA)on 03-11-2023 AMPHETAMINES Negative Normal <1000 ng/mL [facility] Comment on above: Performed By: #### L 505.5000, L100.0100, L501.9100, L500.4050, L501.4020 #### [facility] [address] [place] [address] BARBITIURATES Negative Normal < 200 ng/mL [facility] Comment on above: Performed By: #### L 505.5000, L100.0100, L501.9100, L500.4050, L501.4020 #### [facility] [address] [place] [address] BENZODIAZIPINE Negative Normal < 200 ng/mL [facility] Comment on above: Performed By: #### L 505.5000, L100.0100, L501.9100, L500.4050, L501.4020 #### [facility] [address] [place] [address] COCAINE Negative Normal < 300 ng/mL [facility] Comment on above: Performed By: #### L 505.5000, L100.0100, L501.9100, L500.4050, L501.4020 #### [facility] [address] [place] [address] ECSTACY Positive Abnormal < 500 ng/mL [facility] Comment on above: Performed By: #### L 505.5000, L100.0100, L501.9100, L500.4050, L501.4020 #### [facility] [address] [place] [address] METHADONE Negative Normal < 300 ng/mL [facility] Comment on above: Performed By: #### L 505.5000, L100.0100, L501.9100, L500.4050, L501.4020 #### [facility] [address] [place], [address] OPIATES Negative Normal < 300 ng/mL [facility] Comment on above: Performed By: #### L 505.5000, L100.0100, L501.9100, L500.4050, L501.4020 #### [facility] [address] [place], [address] PCP Negative Normal < 25 ng/mL [facility] Comment on above: Performed By: #### L 505.5000, L100.0100, L501.9100, L500.4050, L501.4020 #### [facility] [address] [place], [address] THC Positive Abnormal < 50 ng/mL [facility] Comment on above: Performed By: #### L 505.5000, L100.0100, L501.9100, L500.4050, L501.4020 #### [facility] [address] [place], [address] VISTA UDS PH 6 Normal [facility] Comment on above: Performed By: #### L 505.5000, L100.0100, L501.9100, L500.4050, L501.4020 #### [facility] [address] [place], [address] Urine phencyclidine (PCP) de tectionOrdered By: Lance Martin on 03-11-2023 Phencyclidine Ql (U) Negative < 25 ng/mL [facility] CBC with Auto Differentialon 02-08-2022 Absolute Eos # 0.10 [facility] [employer] Absolute Lymph # 1.80 [facility] Absolute [place] # 0.40 [facility] Basophils (Bld) [#/Vol] 0.00 10*3/uL [facility] Basophils/100 WBC (Bld) 0 % 0 - 2 % [facility] Differential Type YES [facility] Eosinophils/100 WBC (Bld) 2 % 0 - 5 % [facility] Hematocrit (Bld) [Volume fraction] 45.2 % 36 - 46 % [facility] Hemoglobin (Bld) [Mass/Vol] 15.3 g/dL 12.0 - 16.0 g/dL [facility] Interpretation and review of laboratory results Abnormal [facility] Lymphocytes/100 WBC (Bld) 20 % 15 - 40 % [facility] MCH (RBC) [Entitic mass] 28.3 pg 26 - 34 pg [facility] MCHC (RBC) [Mass/Vol] 33.8 g/dL 31 - 37 g/dL [facility] MCV (RBC) [Entitic vol] 83.8 fL 80 - 100 fL [facility] Monocytes/100 WBC (Bld) 4 % 4 - 8 % [facility] Platelet distribution width (Bld) [Ratio] 15.8 % High 12.1 - 15.2 % [facility] Platelets (Bld) [#/Vol] 180 10*3/uL [facility] RBC (Bld) [#/Vol] 5.39 10*6/uL High 4.0 - 5.2 m/uL [facility] Segmented neutrophils/100 WBC (Bld) 74 % 47 - 75 % [facility] Segs Absolute 6.50 [facility] WBC (Bld) [#/Vol] 8.8 10*3/uL [facility] CBC with Diffon 02-08-2022 Abs. Basophil 0.00 k/uL Normal 0.0-0.2 [facility] Comment on above: Performed By: #### C MPXBELKYS, TROPI #### [facility] [address] [place] [address] Supervisor [employer]: Adriel Sahu MD Abs.Neutrophil (Seg) 6.50 k/uL Normal 2.5-7.0 [facility] Comment on above: Performed By: #### C MPX CDP, TROPI #### [facility] [address] [place], [place] [id number] Supervisor [employer]: Adriel Sahu MD Auto Diff Performed YES Normal [facility] Comment on above: Performed By: #### C MPX, CDP, TROPI #### [facility] [address] [place], [place] [id number] Supervisor [employer]: Adriel Sahu MD Basophils/100 WBC (Bld) 0 % Normal 0-2 [facility] Comment on above: Performed By: #### C MPX, CDP, TROPI #### [facility] [address] [place] [id number] Supervisor [employer]: Adriel Sahu MD Eosinophils (Bld) [#/Vol] 0.10 10*3/uL Normal 0.0-0.4 [facility] Comment on above: Performed By: #### C MPX, CDP, TROPI #### [facility] [address] [place] [id number] Supervisor [employer]: Adriel Sahu MD Eosinophils/100 WBC (Bld) 2 % Normal 0-5 [facility] Comment on above: Performed By: #### C MPX, CDP, TROPI #### [facility] [address] [place] [address] Supervisor [employer]: Adriel Sahu MD Erythrocyte distribution width (RBC) [Ratio] 15.8 % High 12.1-15.2 [facility] Comment on above: Performed By: #### C MPX, CDP, TROPI #### [facility] [address] [place], [place] [id number] Supervisor [employer]: Adriel Sahu MD Hematocrit (Bld) [Volume fraction] 45.2 % Normal 36-46 [facility] Comment on above: Performed By: #### C MPX, CDP, TROPI #### [facility] [address] [place] [id number] Supervisor [employer]: Adriel Sahu MD Hemoglobin (Bld) [Mass/Vol] 15.3 g/dL Normal 12.0-16.0 [facility] Comment on above: Performed By: #### C MPX, CDP, TROPI #### [facility] [address] [place], [place] [id number] Supervisor [employer]: Adriel Sahu MD Lymphocytes (Bld) [#/Vol] 1.80 10*3/uL Normal 1.0-4.8 [facility] Comment on above: Performed By: #### C MPX, CDP, TROPI #### [facility] [address] [place] [address] Supervisor [employer]: Adriel Sahu MD Lymphocytes/100 WBC (Bld) 20 % Normal 15-40 [facility] Comment on above: Performed By: #### C MPX, CDP, TROPI #### [facility] [address] [place] [address] Supervisor [employer]: Adriel Sahu MD MCH (RBC) [Entitic mass] 28.3 pg Normal 26-34 [facility] Comment on above: Performed By: #### C MPX, CDP, TROPI #### [facility] [address] [place], [place] [id number] Supervisor [employer]: Adriel Sahu MD MCHC (RBC) [Mass/Vol] 33.8 g/dL Normal 31-[address] [facility] Comment on above: Performed By: #### C MPX, CDP, TROPI #### [facility] [address] [place] [address] Supervisor [employer]: Adriel Sahu MD MCV (RBC) [Entitic vol] 83.8 fL Normal 80-100 [facility] Comment on above: Performed By: #### C MPX, CDP, TROPI #### [facility] [address] [place], [place] [id number] Supervisor [employer]: Adriel Sahu MD Monocytes (Bld) [#/Vol] 0.40 10*3/uL Normal 0.0-1.0 [facility] Comment on above: Performed By: #### C MPX, CDP, TROPI #### [facility] [address] [place] [address] Supervisor [employer]: Adriel Sahu MD Monocytes/100 WBC (Bld) 4 % Normal 4-8 [facility] Comment on above: Performed By: #### C MPX, CDP, TROPI #### [facility] [address] [place] [address] Supervisor [employer]: Adriel Sahu MD Neutrophil (Seg) 74 % Normal 47-75 [facility] Comment on above: Performed By: #### C MPX, CDP, TROPI #### [facility] [address] [place] [address] Supervisor [employer]: Adriel Sahu MD Platelets (Bld) [#/Vol] 180 10*3/uL Normal 140-450 [facility] Comment on above: Performed By: #### C MPX, CDP, TROPI #### [facility] [address] [place] [address] Supervisor [employer]: Adriel Sahu MD RBC (Bld) [#/Vol] 5.39 10*6/uL High 4.0-5.2 [facility] Comment on above: Performed By: #### C MPX, CDP, TROPI #### [facility] [address] [place] [address] Supervisor [employer]: Adriel Sahu MD WBC (Bld) [#/Vol] 8.8 10*3/uL Normal 3.5-11.0 [facility] Comment on above: Performed By: #### C MPX, CDP, TROPI #### [facility] [address] [place] [address] Supervisor [employer]: Adriel Sahu MD Comp Metabolic Pr/rfx MGon 1 Albumin [Mass/Vol] 4.1 g/dL Normal 3.5-5.2 [facility] Comment on above: Performed By: #### C MPX, CDP, TROPI #### [facility] [address] [place], [place] [id number] Supervisor [employer]: Adriel Sahu MD Alkaline Phos 79 U/L Normal 35-104 [facility] Comment on above: Performed By: #### C MPX, CDP, TROPI #### [facility] [address] [place] [address] Supervisor [employer]: Adriel Sahu MD ALT [Catalytic activity/Vol] 169 U/L High 5-33 [facility] Comment on above: Performed By: #### C MPX, CDP, TROPI #### [facility] [address] [place], [place] [id number] Supervisor [employer]: Adriel Sahu MD Anion gap [Moles/Vol] 13 mmol/L Normal 9-[address] [facility] Comment on above: Performed By: #### C MPX, CDP, TROPI #### [facility] [address] [place], [place] [id number] Supervisor [employer]: Adriel Sahu MD AST [Catalytic activity/Vol] 92 U/L High <32 [facility] Comment on above: Performed By: #### C MPX, CDP, TROPI #### [facility] [address] [place], [place] [id number] Supervisor [employer]: Adriel Sahu MD Bilirubin [Mass/Vol] 0.4 mg/dL Normal 0.30-1.20 [facility] Comment on above: Performed By: #### C MPX, CDP, TROPI #### [facility] [address] [place], [place] [id number] Supervisor [employer]: Adriel Sahu MD Calcium [Mass/Vol] 9.1 mg/dL Normal 8.6-10.4 [facility] Comment on above: Performed By: #### C MPX, CDP, TROPI #### [facility] [address] [place] [address] Supervisor [employer]: Adriel Sahu MD Chloride [Moles/Vol] 100 mmol/L Normal 98-107 [facility] Comment on above: Performed By: #### C MPX, CDP, TROPI #### [facility] [address] [place] [id number] Supervisor [employer]: Adriel Sahu MD CO2 [Moles/Vol] 24 mmol/L Normal 20-31 [facility] Comment on above: Performed By: #### C MPX, CDP, TROPI #### [facility] [address] [place] [address] Supervisor [employer]: Adriel Sahu MD Creatinine [Mass/Vol] 0.70 mg/dL Normal 0.50-0.[address] [facility] Comment on above: Performed By: #### C MPX, CDP, TROPI #### [facility] [address] [place] [address] Supervisor [employer]: Adriel Sahu MD GFR/1.73 sq M.predicted among non-blacks MDRD (S/P/Bld) [Vol rate/Area] mL/min/{1.73_m2} Normal >60 [facility] Comment on above: Result Comment: Effective Jan 11, 2022 These results are not intended for use in patients <18 years of age. eGFR results are calculated without a race factor using the 2020 CKD-EPI equation. Careful clinical correlation is recommended, particularly when comparing to results calculated using previous equations. The CKD-EPI equation is less accurate in patients with extremes of muscle mass, extra-renal metabolism of creatine, excessive creatine ingestion, or following therapy that affects renal tubular secretion. Performed By: #### C MPX, CDP, TROPI #### [facility] [address] [id number] Supervisor [employer]: Adriel Sahu MD Glucose [Mass/Vol] 160 mg/dL High 70-99 [facility] Comment on above: Performed By: #### C MPDacia CDP, TROPI #### [facility] [address] [place], [place] [id number] Supervisor [employer]: Adriel Sahu MD Potassium [Moles/Vol] 3.9 mmol/L Normal 3.7-5.[address] [facility] Comment on above: Performed By: #### C MPX CDP, TROPI #### [facility] [address] [place], [place] [id number] Supervisor [employer]: Adriel Sahu MD Protein [Mass/Vol] 7.6 g/dL Normal 6.4-8.3 [facility] Comment on above: Performed By: #### C SEMAJ CDP, TROPI #### [facility] [address] [place] [address] Supervisor [employer]: Adriel Sahu MD Sodium [Moles/Vol] 137 mmol/L Normal 135-144 [facility] Comment on above: Performed By: #### C SEMAJ CDP, TROPI #### [facility] [address], [place] [id number] Supervisor [employer]: Adriel Sahu MD Urea nitrogen [Mass/Vol] 12 mg/dL Normal 6-20 [facility] Comment on above: Performed By: #### C MPDacia CDP, TROPI #### [facility] [address], [place] [id number] Supervisor [employer]: Adriel Sahu MD Comprehensive Metabolic Pane l w/ Reflex to MGon 02-08-2022 Albumin [Mass/Vol] 4.1 g/dL 3.5 - 5.2 g/dL [facility] ALP (Bld) [Catalytic activity/Vol] 79 U/L 35 - 104 U/L [facility] ALT [Catalytic activity/Vol] 169 U/L High 5 - 33 U/L [facility] Anion gap [Moles/Vol] 13 mmol/L 9 - 17 mmol/L [facility] AST [Catalytic activity/Vol] 92 U/L High NINF - 32 U/L [facility] Bilirubin [Mass/Vol] 0.4 mg/dL 0.30 - 1.20 mg/dL [facility] Calcium [Mass/Vol] 9.1 mg/dL 8.6 - 10. 4 mg/dL [facility] Chloride [Moles/Vol] 100 mmol/L 98 - 10 7 mmol/L [facility] CO2 [Moles/Vol] 24 mmol/L 20 - 31 mmol/L [facility] Creatinine [Mass/Vol] 0.7 mg/dL 0.50 - 0.90 mg/dL [facility] GFR/1.73 sq M.predicted MDRD (S/P/Bld) [Vol rate/Area] - PINF [facility] Comment on above: Effective Jan 11, 2022 These results are not intended for use in patients <18 years of age. eGFR results are calculated without a race factor using the 2020 CKD-EPI equation. Careful clinical correlation is recommended, particularly when comparing to results calculated using previous equations. The CKD-EPI equation is less accurate in patients with extremes of muscle mass, extra-renal metabolism of creatine, excessive creatine ingestion, or following therapy that affects renal tubular secretion. Glucose [Mass/Vol] 160 mg/dL High 70 - 99 mg/dL [facility] Interpretation and review of laboratory results Abnormal [facility] Potassium [Moles/Vol] 3.9 mmol/L 3.7 - 5.3 mmol/L [facility] Protein [Mass/Vol] 7.6 g/dL 6.4 - 8.3 g/dL [facility] Sodium [Moles/Vol] 137 mmol/L 135 - 144 mmol/L [facility] Urea nitrogen (BldV) [Mass/Vol] 12 mg/dL 6 - 20 mg/dL [facility] Troponinon 02-08-2022 Troponin, High Sens <6 Normal 0-14 [facility] Comment on above: Result Comment: High Sensitivity Troponin values cannot be compared with other Troponin methodologies. Patients with high levels of Biotin oral intake (i.e >5mg/day) may have falsely decreased Troponin levels. Samples collected within 8 hours of biotin intake may require additional information for diagnosis. Performed By: #### C MPX, CDP, TROPI #### [facility] [address] [place] [address] Supervisor [employer]: Adriel Sahu MD Troponin, High Sensitivity ng/L 0 - 14 ng/L [facility] Comment on above: High Sensitivity Troponin values cannot be compared with other Troponin methodologies. Patients with high levels of Biotin oral intake (i.e >5mg/day) may have falsely decreased Troponin levels. Samples collected within 8 hours of biotin intake may require additional information for diagnosis. [facility] Urinalysison 02-08-2022 Bilirubin Urine Negative NEGATIVE [facility] Color, UA Yellow Yellow [facility] Glucose, Ur Negative NEGATIVE [facility] Interpretation and review of laboratory results Abnormal [facility] Ketones Ql (U) LARGE Abnormal NEGATIVE [facility] Leukocyte esterase Test strip Ql (U) Negative NEGATIVE [facility] Nitrite, Urine Negative NEGATIVE [facility] pH, UA 6.0 5.0 - 8.0 [facility] Protein, UA TRACE Abnormal NEGATIVE [facility] Specific Haddock, UA 1.025 1.005 - 1.030 [facility] Turbidity UA Clear Clear [facility] Urinalysis Comments [facility] Urine Hgb Negative NEGATIVE [facility] Urobilinogen, Urine Normal Normal [facility] Urinalysis, Routineon 2021 Bilirubin, SemiQt,Ur Negative Normal NEG [facility] Comment on above: Performed By: #### U A #### [facility] [address] [place] [address] Supervisor [employer]: Adriel Sahu MD Blood, Urine Negative Normal NEG [facility] Comment on above: Performed By: #### U A #### [facility] [address], [place] [phone] Supervisor [employer]: Adriel Sahu MD Clarity (U) Clear Normal CLEAR [facility] Comment on above: Performed By: #### U A #### [facility] [address], [place] [phone] Supervisor [employer]: Adriel Sahu MD Color (U) Yellow Normal YEL [facility] Comment on above: Performed By: #### U A #### [facility] [address] [place] [address] Supervisor [employer]: Adriel Sahu MD Comment Normal [facility] Comment on above: Performed By: #### U A #### [facility] [address], [place] [phone] Supervisor [employer]: Adriel Sahu MD Glucose Ql (U) Negative Normal NEG [facility] Comment on above: Performed By: #### U A #### [facility] [address] [place] [address] Supervisor [employer]: Adriel Sahu MD Ketones Ql (U) LARGE Abnormal NEG [facility] Comment on above: Performed By: #### U A #### [facility] [address] [facility] [place] [phone] Supervisor [employer]: Adriel Sahu MD Leukocyte esterase Test strip Ql (U) Negative Normal NEG [facility] Comment on above: Performed By: #### U A #### [facility] [address] [facility] [place] [phone] Supervisor [employer]: Adriel Sahu MD Nitrite,Ur Negative Normal NEG [facility] Comment on above: Performed By: #### U A #### [facility] [address] [place] [address] Supervisor [employer]: Adriel Sahu MD PH,Ur 6.0 Normal 5.0-8.0 [facility] Comment on above: Performed By: #### U A #### [facility] [address] [place] [address] Supervisor [employer]: Adriel Sahu MD Protein Ql (U) TRACE Abnormal NEG [facility] Comment on above: Performed By: #### U A #### [facility] [address] [place] [address] Supervisor [employer]: Adriel Sahu MD Spec. Haddock,Ur 1.025 Normal 1.005-1.030 [facility] Comment on above: Performed By: #### U A #### [facility] [address] [place] [address] Supervisor [employer]: Adriel Sahu MD Urobilinogen,Ur Normal Normal NORM [facility] Comment on above: Performed By: #### U A #### [facility] [address] [place] [address] Supervisor [employer]: Adriel Sahu MD No Panel InformationOrdered By: Kathryn Carter on 09-05-2020 Minimal soft tissue swelling around the ankle. An old ossicle between the medial malleolus and the talus on the AP projection would not be acute. Plantar spur on the calcaneus. Otherwise negative foot. [employer] Work Phone: EXAM: XR FOOT LEFT ( MIN 3 VIEWS), XR ANKLE LEFT (MIN 3 VIEWS) HISTORY: Reason for exam:->pain dorsal lateral midfoot COMPARISON: None. TECHNIQUE: 3 views left foot, 3 views left ankle FINDINGS: The foot is diffusely normal except for a 6 mm plantar spur on the calcaneus. The ankle shows a old ossicle projecting over the medial joint space between the medial malleolus and talus measuring 4 mm diameter that would not be acute. There is no osteochondral defect. Minimal soft tissue swelling. [employer] Work Phone: [employer], [employer] Incoming Radiant Results From [employer] - 09/05/2020 12:30 PM EDT EXAM: XR FOOT LEFT (MIN 3 VIEWS), XR ANKLE LEFT (MIN 3 VIEWS) HISTORY: Reason for exam:->pain dorsal lateral midfoot COMPARISON: None. TECHNIQUE: 3 views left foot, 3 views left ankle FINDINGS: The foot is diffusely normal except for a 6 mm plantar spur on the calcaneus. The ankle shows a old ossicle projecting over the medial joint space between the medial malleolus and talus measuring 4 mm diameter that would not be acute. There is no osteochondral defect. Minimal soft tissue swelling. IMPRESSION: Minimal soft tissue swelling around the ankle. An old ossicle between the medial malleolus and the talus on the AP projection would not be acute. Plantar spur on the calcaneus. Otherwise negative foot. [facility] [employer] Work Phone: [facility] [employer] Work Phone: Microscopic Urinalysison Amorphous, UA NOT REPORTED None [place] Bacteria, UA 2+ Abnormal None [place] Casts UA NOT REPORTED /LPF [place] Crystals, UA NOT REPORTED None /HPF [place] Epithelial Cells UA 5 TO 10 /HPF [place] Interpretation and review of laboratory results Abnormal [place] Mucus, UA NOT REPORTED None [place] Other Observations UA NOT REPORTED NOT REQ. M [place], [place] RBC (U) [#/Vol] 0 TO 2 [place] Renal Epithelial, UA NOT REPORTED 0 /HPF [place], [place] Trichomonas, UA NOT REPORTED None [place] WBC, UA 2 TO 5 0 /HPF [place] Yeast, UA NOT REPORTED None [place] - [place] Urinalysison 10-27-2019 Bilirubin Urine Negative NEGATIVE [place] Color, UA YELLOW YELLOW [place] Glucose, Ur 1000 mg/dL Abnormal NEGATIVE [place] Interpretation and review of laboratory results Abnormal [place] Ketones Ql (U) SMALL Abnormal NEGATIVE [place] Leukocyte esterase Test strip Ql (U) 2+ Abnormal NEGATIVE [facility] [place], [place] Nitrite, Urine Negative NEGATIVE [facility] [place], [place] pH, UA 5.0 [facility], [place] Protein (U) [Mass/Vol] Negative NEGATIVE Me [facility] [place], [place] Specific [place], UA 1.010 [facility] [place], [place] Turbidity UA CLEAR CLEAR [facility] [place], [place] Urinalysis Comments [facility], [place] Urine Hgb TRACE Abnormal NEGATIVE [facility] Urobilinogen, Urine Normal Normal [facility], [place] Vital Signs Date Time Vital Sign Value Performing Clinician Dayanai litmarianna 06-01-2024 18:39-0500 Body height 166.4 cm Laxmi Vang CNP Work Phone: [facility] 06-01-2024 18:39-0500 Body mass index (BMI) [Ratio] 33.53 kg/m2 Laxmi Vang CNP Work Phone: [facility] 06-01-2024 18:39-0500 Body temperature 98.29 [degF] Laxmi Vang CNP Work Phone: [facility] 06-01-2024 18:39-0500 Body weight 92.81 kg Laxmi Vang CNP Work Phone: [facility] 06-01-2024 18:39-0500 Diastolic blood pressure 79 mm[Hg] Laxmi Vang CONTINUITY EDITOR Work Phone: [facility] 06-01-2024 18:39-0500 Heart rate 78 /min Laxmi Vang CNP Work Phone: [facility] 06-01-2024 18:39-0500 Respiratory rate 24 /min Laxmi Vang CNP Work Phone: [facility] 06-01-2024 18:39-0500 SaO2% (BldA) [Mass fraction] 99 % Laxmi Vang CNP Work Phone: [facility] 06-01-2024 18:39-0500 Systolic blood pressure 164 mm[Hg] Laxmi Vang CNP Work Phone: [facility] 05-18-2024 19:32-0500 Body height 165.7 cm Child Psychologist Jeb Strange [facility] 05-18-2024 19:32-0500 Body mass index (BMI) [Ratio] 34.22 kg/m2 Child Psychologist Jeb Strange [facility] 05-18-2024 19:32-0500 Body temperature 98.6 [degF] Child Psychologist Jeb Strange [facility] 05-18-2024 19:32-0500 Body weight 93.98 kg Child Psychologist Jeb Strange [facility] 05-18-2024 19:32-0500 Diastolic blood pressure 82 mm[Hg] Child Psychologist Jeb Strange [facility] 05-18-2024 19:32-0500 Heart rate 84 /min [facility] Memampmarianna Strange [facility] 05-18-2024 19:32-0500 Respiratory rate 15 /min Child Psychologist Jeb Memampmarianna Strange [facility] 05-18-2024 19:32-0500 SaO2% (BldA) [Mass fraction] 98 % Child Psychologist Jeb Strange [facility] 05-18-2024 19:32-0500 Systolic blood pressure 149 mm[Hg] [facility] Jeb Strange [facility] 05-14-2024 08:41-0500 Body height 167.6 cm Laxmi Vang CNP Work Phone: [facility] 05-14-2024 08:41-0500 Body mass index (BMI) [Ratio] 33.99 kg/m2 Laxmi Vang CNP Work Phone: [facility] 05-14-2024 08:41-0500 Body temperature 97.81 [degF] Laxmi Vang CNP Work Phone: [facility] 05-14-2024 08:41-0500 Body weight 95.53 kg Laxmi Vang CNP Work Phone: [facility] 05-14-2024 08:41-0500 Diastolic blood pressure 75 mm[Hg] Laxmi Vang CNP Work Phone: [facility] 05-14-2024 08:41-0500 Heart rate 72 /min Laxmi Vang CNP Work Phone: [facility] 05-14-2024 08:41-0500 SaO2% (BldA) [Mass fraction] 99 % Laxmi Vang CNP Work Phone: [facility] 05-14-2024 08:41-0500 Systolic blood pressure 133 mm[Hg] Laxmi Vang CONTINUITY EDITOR Work Phone: [facility] 12-08-2023 08:45-0400 Body height 167.6 cm Laxmi Vang CNP Work Phone: [facility] 12-08-2023 08:45-0400 Body mass index (BMI) [Ratio] 35.67 kg/m2 Laxmi Vang CNP Work Phone: [facility] 12-08-2023 08:45-0400 Body temperature 97.81 [degF] Laxmi Vang CNP Work Phone: [facility] 12-08-2023 08:45-0400 Body weight 100.25 kg Laxmi Vang CNP Work Phone: [facility] 12-08-2023 08:45-0400 Diastolic blood pressure 66 mm[Hg] Laxmi Vang CNP Work Phone: [facility] 12-08-2023 08:45-0400 Heart rate 78 /min Laxmi Vang CNP Work Phone: [facility] 12-08-2023 08:45-0400 SaO2% (BldA) [Mass fraction] 99 % Laxmi Vang CNP Work Phone: [facility] 12-08-2023 08:45-0400 Systolic blood pressure 155 mm[Hg] Laxmi Vang CNP Work Phone: [facility] 03-14-2023 08:01-0500 Body temperature 98.6 [degF] Dr. Lance Martin Work Phone: [facility] 03-14-2023 08:01-0500 Diastolic blood pressure 85 mm[Hg] Dr. Lance Martin Work Phone: [facility] 03-14-2023 08:01-0500 Heart rate 71 /min Dr. Lance Martin Work Phone: [facility] 03-14-2023 08:01-0500 Respiratory rate 16 /min Dr. Lance Martin Work Phone: [facility] 03-14-2023 08:01-0500 SaO2% (BldA) [Mass fraction] 98 % Dr. Lance Martin Work Phone: [facility] 03-14-2023 08:01-0500 Systolic blood pressure 125 mm[Hg] Dr. Lance Martin Work Phone: [facility] 03-12-2023 10:24-0500 Body height 167.[address] Lance Martin Work Phone: [facility] 03-12-2023 10:24-0500 Body weight 91.[address] Lance Martin Work Phone: [facility] 03-11-2023 23:02-0500 Body mass index (BMI) [Ratio] 32.6 kg/m2 Dr. Lance Martin Work Phone: [facility] 03-11-2023 21:23-0500 Body temperature 96.6 [degF] [facility] 03-11-2023 21:23-0500 Diastolic blood pressure 89 mm[Hg] [facility] 03-11-2023 21:23-0500 Heart rate 63 /min [facility] 03-11-2023 21:23-0500 Respiratory rate 16 /min [facility] 03-11-2023 21:23-0500 SaO2% (BldA) [Mass fraction] 96 % [facility] 03-11-2023 21:23-0500 Systolic blood pressure 145 mm[Hg] [facility] 03-11-2023 18:18-0500 Body height 167.64 cm [facility] 03-11-2023 18:18-0500 Body mass index (BMI) [Ratio] 33.3 kg/m2 [facility] 03-11-2023 18:18-0500 Body weight 93.7 kg [facility] 02-08-2022 07:35-0400 Body height 167.6 cm Bhavin Mandujano DO Work Phone: [facility] [employer] 02-08-2022 07:35-0400 Body mass index (BMI) [Ratio] 37.69 kg/m2 Bhavin Delbert DO Work Phone: [facility] [employer] 02-08-2022 07:35-0400 Body temperature 98.71 [degF] Bhavin Mandujano DO Work Phone: [facility] 02-08-2022 07:35-0400 Body weight 105.92 kg Bhavin Mandujano DO Work Phone: [facility] [employer] 02-08-2022 07:35-0400 Diastolic blood pressure 95 mm[Hg] Bhavin Mandujano DO Work Phone: [facility] 02-08-2022 07:35-0400 Heart rate 76 /min Bhavin Mandujano DO Work Phone: [facility] 02-08-2022 07:35-0400 Respiratory rate 20 /min Bhavin Mandujano DO Work Phone: [facility] [employer] 02-08-2022 07:35-0400 SaO2% (BldA) [Mass fraction] 100 % Bhavin Mandujano DO Work Phone: [facility] 02-08-2022 07:35-0400 Systolic blood pressure 161 mm[Hg] Bhavin Mandujano DO Work Phone: [facility] 02-04-2021 12:25-0400 Body height 167.6 cm Kathryn Carter MD Work Phone: [employer] Work Phone: 02-04-2021 12:25-0400 Body mass index (BMI) [Ratio] 40.79 kg/m2 Kathryn Carter MD Work Phone: [facility] Work Phone: 02-04-2021 12:25-0400 Body temperature 98.8 [degF] Kathryn Carter MD Work Phone: [employer] Work Phone: 02-04-2021 12:25-0400 Body weight 114.62 kg Kathryn Carter MD Work Phone: [facility] Work Phone: 02-04-2021 12:25-0400 Diastolic blood pressure 91 mm[Hg] Kathryn Carter MD Work Phone: [employer] Work Phone: 02-04-2021 12:25-0400 Heart rate 77 /min Kathryn Carter MD Work Phone: [facility] [employer] Work Phone: 02-04-2021 12:25-0400 Respiratory rate 18 /min Kathryn Carter MD Work Phone: [facility] Work Phone: 02-04-2021 12:25-0400 SaO2% (BldA) [Mass fraction] 99 % Kathryn Carter MD Work Phone: [facility] Work Phone: 02-04-2021 12:25-0400 Systolic blood pressure 167 mm[Hg] Kathryn Carter MD Work Phone: [facility] Work Phone: 09-05-2020 11:03-0400 Diastolic blood pressure 92 mm[Hg] Kathryn Carter MD Work Phone: [employer] Work Phone: 09-05-2020 11:03-0400 Systolic blood pressure 171 mm[Hg] Kathryn Carter MD Work Phone: [facility] [employer] Work Phone: 09-05-2020 10:59-0400 Body height 167.6 cm Kathryn Carter MD Work Phone: [facility] [employer] Work Phone: 09-05-2020 10:59-0400 Body mass index (BMI) [Ratio] 40.63 kg/m2 Kathryn Carter MD Work Phone: [facility] [employer] Work Phone: 09-05-2020 10:59-0400 Body temperature 99 [degF] Kathryn Carter MD Work Phone: [facility] [employer] Work Phone: 09-05-2020 10:59-0400 Body weight 114.17 kg Kathryn Carter MD Work Phone: [facility] Work Phone: 09-05-2020 10:59-0400 Heart rate 98 /min Kathryn Carter MD Work Phone: [facility] [employer] Work Phone: 09-05-2020 10:59-0400 Respiratory rate 18 /min Kathryn Carter MD Work Phone: [facility] [employer] Work Phone: 09-05-2020 10:59-0400 SaO2% (BldA) [Mass fraction] 98 % Kathryn Carter MD Work Phone: [facility] [employer] Work Phone: 10-27-2019 13:43-0400 BMI (Body Mass Index) 43.42 kg/m2 [facility] [place] 10-27-2019 13:43-0400 Body Temperature 98.8 [degF] [facility] [place] 10-27-2019 13:43-0400 Body weight 122.02 kg [facility] [place], [place] 10-27-2019 13:43-0400 BP Diastolic 104 mm[Hg] [facility] [place] 10-27-2019 13:43-0400 BP Systolic 156 mm[Hg] Gomez Donato [facility] O , [place] 10-27-2019 13:43-0400 Height 167.6 cm Gomez Donato [facility], [place] 10-27-2019 13:43-0400 Pulse (Heart Rate) 110 /min [facility] 10-27-2019 13:43-0400 Pulse Oximetry 98 % Gomez Donato [facility], [place] 10-27-2019 13:43-0400 Respiratory Rate 18 /min [facility] Hospital[facility] Encounters Encounter Date Encounter Type Care Provider Facility Start: 06-28-2024 End: 06-28-2024 Emergency department patient visit [facility] Start: 06-02-2024 [facility] Start: 06-01-2024 End: 06-01-2024 Office outpatient visit 15 minutes Laxmi Vang CONTINUITY EDITOR Work Phone: [facility] Comment on above: Viral illness (Prima ry Dx); Diarrhea, unspecified type Start: 06-01-2024 ambulatory SELF SELF [facility] Start: 05-18-2024 End: 05-18-2024 Office outpatient visit 15 minutes Steff Lewis APRN-CONTINUITY EDITOR Work Phone: [facility] Comment on above: Dental abscess (Prim eber Dx) Start: 05-18-2024 ambulatory SELF SELF [facility] Start: 05-14-2024 End: 05-14-2024 Office outpatient visit 15 minutes Laxmi Vang CONTINUITY EDITOR Work Phone: [facility] Comment on above: Viral illness (Prima ry Dx); Nausea Start: 05-14-2024 ambulatory SELF SELF [facility] Start: 12-08-2023 ambulatory SELF SELF [facility] Start: 12-08-2023 End: 12-08-2023 Office outpatient new 45 minutes Laxmi Vang CONTINUITY EDITOR Work Phone: [facility] Comment on above: Urinary frequency (P rimary Dx); Cystitis with hematuria Start: 06-16-2023 End: 06-16-2023 ambulatory BETSEY [facility] Start: 03-15-2023 End: 03-29-2023 ambulatory Kathryn BUTTS Facility:[id number] Start: 03-14-2023 Non-patient / Non-visit Dr. Burnett Work Phone: [facility] Work Phone: Start: 03-13-2023 Non-patient / Non-visit Dr. Burnett Work Phone: [facility] Work Phone: Start: 03-12-2023 Non-patient / Non-visit Dr. Burnett Work Phone: [facility] Work Phone: Start: 03-12-2023 End: 03-14-2023 Evaluation and management of inpatient [facility] Facility:[facility] Start: 03-12-[address] [facility] Facility:[facility] Start: 03-11-2023 Non-patient / Non-visit Dr. Burnett Work Phone: [facility] Work Phone: Start: 03-11-2023 End: 03-14-2023 Evaluation and management of inpatient [facility] Work Phone: Start: 02-08-2022 End: 02-08-2022 Emergency department patient visit KATHRYN BUTTS [facility] Start: 02-08-2022 End: 02-08-2022 Emergency department patient visit Bhavin Mandujano DO Work Phone: [facility] ED Comment on above: Other fatigue (Prima ry Dx); Nausea and vomiting, unspecified vomiting type Start: 02-04-2021 End: 02-04-2021 Emergency department patient visit Kathryn Carter MD Work Phone: [facility] [facility] ED Comment on above: Left facial swelling (Primary Dx); Pain, dental Start: 09-05-2020 End: 09-05-2020 Emergency department patient visit Kathryn Carter MD Work Phone: [facility] Comment on above: Sprain of anterior t alofibular ligament of right ankle, initial encounter (Primary Dx) Start: 10-27-2019 End: 10-27-2019 Emergency department patient visit Gomez Byrd Work Phone: [facility] ED Comment on above: Candidal vaginitis ( Primary Dx); Urinary tract infection without hematuria, site unspecified Start: 11-21-2018 End: 11-21-2018 Subsequent hospital visit by physician Jaja Simms [facility] Laboratory Procedures Date Procedure Procedure Detail Performing Clinician Start: 06-01-2024 [facility] influenza Prabhakar eugenie Vang CONTINUITY EDITOR Work Phone: Start: 06-01-2024 SARS-CoV-2 (COVID-19 ) RNA [Presence] in Unspecified specimen by LEIGHA with probe detection Laxmi Vang CNP Work Phone: Start: 05-14-2024 [facility] influenza Prabhakar Vang CONTINUITY EDITOR Work Phone: Start: 05-14-2024 SARS-CoV-2 (COVID-19 ) RNA [Presence] in Unspecified specimen by LEIGHA with probe detection Laxmikevon Vang CONTINUITY EDITOR Work Phone: Start: 12-08-2023 Urnls dip stick/tabl et rgnt auto w/o microscopy Laxmikevon Vang CONTINUITY EDITOR Work Phone: Start: 02-08-2022 Urnls dip stick/tabl et rgnt auto w/o microscopy Bhavin Mandujano DO Work Phone: Start: 02-08-2022 Assay of troponin quantitative Bhavin Mandujano DO Work Phone: Start: 02-08-2022 Ecg routine ecg w/le ast 12 lds w/i&r Bhavin Mandujano DO Work Phone: Start: 09-05-2020 End: 09-05-2020 Radex ankle complete minimum 3 views Kathryn Carter MD Work Phone: Start: 10-27-2019 Urinalysis microscop ic only Gomez Samuel Rochelle Work Phone: Start: 10-27-2019 Urnls dip stick/tabl et rgnt auto w/o microscopy Gomez Byrd Work Phone: Plan of Treatment Date Care Activity Detail Author Start: 12-16-2023 Screening for malign ant neoplasm of colon COLORECTAL CANCER SCREENING DISCUSSION [facility] Start: 12-11-2023 COVID-19 VACCINE ( season) COVID-19 VACCINE ( season) [facility] Start: 12-11-2023 Influenza vaccination INFLUENZA VACC INE (#1) [facility] Start: 03-14-2023 Patient discharge [facility] Start: 03-11-2023 Assessment using assessment scale [facility] Start: 03-11-2023 End: 03-11-2023 [facility] Start: 03-11-2023 Assessment of risk o f venous thromboembolism [facility] Start: 03-11-2023 Notification of physician [facility] Start: 03-11-2023 Vital signs measurements [facility] Start: 03-11-2023 Admission procedure [facility] Start: 03-11-2023 Hospital admission, emergency, from emergency room, medical nature [facility] Start: 03-11-2023 Suicide precautions [facility] Start: 03-11-2023 Consultation [facility] Start: 03-11-2023 Patient referral to dietitian [facility] Start: 12-10-2022 COVID-19 VACCINE ( season) COVID-19 VACCINE ( season) [facility] Start: 11-09-2021 Influenza vaccination Flu vaccine (# 1) [facility] Start: 12-10-2020 Influenza vaccination [employer] Work Phone: Start: 12-11-2019 Influenza vaccination Flu vaccine (# 1) [facility], [place] Start: 2018 Diabetes screen Diabetes screen [place], [place] Start: 2018 Lipid panel [facility] Start: 2018 Screening for malign ant neoplasm of breast MAMMOGRAM SCREENING DISCUSSION [facility] Start: 12-10-2018 Influenza vaccination Flu vaccine (# 1) [place], [place] Start: 2008 Screening for malign ant neoplasm of cervix [facility] Start: 12-16-1999 Cervical cancer screen Cervical canc er screen [place], [place] Start: 12-16-1999 Screening for malign ant neoplasm of cervix [facility] Start: 1997 DTaP/Tdap/Td vaccine (1 - Tdap) DTaP/Tdap/Td vaccine (1 - Tdap) [facility] Start: 1997 Hepatitis B vaccination HEP B VACCINE (1 of 3 - 19+ 3-dose series) [facility] Start: 1997 Hepatitis B vaccine (1 of 3 - Risk 3-dose series) Hepatitis B vaccine (1 of 3 - Risk 3-dose series) [facility] Start: 1997 PNEUMOCOCCAL VACCINE SERIES (1 of 2 - PCV) PNEUMOCOCCAL VACCINE SERIES (1 of 2 - PCV) [facility] Start: 1997 Third diphtheria, te tanus and acellular pertussis (DTaP) vaccination TDAP (ADULT) [facility] Start: 1996 Diabetic microalbumi adonis test Diabetic microalbuminuria test [facility] [employer] Phone: Start: 1996 Diabetic retinal exam Diabetic retin al exam [facility] Start: 1996 Urine screening for protein Diabetic microalbuminuria test [facility] Start: 1993 HIV screening HIV SCREENING DISCUSSI ON [facility] Start: 1990 COVID-19 Vaccine (1) COVID-19 Vaccin e (1) [facility] [employer] Phone: Start: 1990 Depression Screen Depression Screen [facility] Start: 1988 Diabetic foot examination Diabetic f oot exam [facility] Start: 1988 Diabetic retinal exam Diabetic retin al exam [facility] [employer] Phone: Start: 1988 Hemoglobin A1c measurement A1C test (Diabetic or Prediabetic) [facility] Start: 1988 Lipid panel [facility] Start: 1984 Pneumococcal 0-64 ye ars Vaccine (1 - PCV) Pneumococcal 0-64 years Vaccine (1 - PCV) [facility] Start: 1984 Pneumococcal 0-64 ye ars Vaccine (1 of 2 - PPSV23) Pneumococcal 0-64 years Vaccine (1 of 2 - PPSV23) [facility] [employer] Phone: Start: 1984 PNEUMOCOCCAL VACCINE SERIES (1 of 2 - PCV) PNEUMOCOCCAL VACCINE SERIES (1 of 2 - PCV) [facility] Start: 06-15-1979 COVID-19 Vaccine (#1) COVID-19 Vacci ne (#1) [facility] Start: 1978 Hepatitis C screening HEPATITI S C VIRUS SCREENING [facility] Start: 1978 Tetanus vaccination TETANUS [facility] Bacteria identified in Urine by Culture URINE CULTURE Microbiology Today Cystitis with hematuria 12/08/2023 8:49 AM EDT [facility] End: 10-27-2019 Culture, Urine Culture, Urine Microbiology Routine Once for 1 Occurrences starting 10/27/2019 until 10/27/2019 [facility] [place] Comment on above: Once for 1 Occurrenc es starting 10/27/2019 until 10/27/2019 Culture, Urine Culture, Urine Microbiology Routine 10/27/2019 2:14 PM EDT [facility] [place] EKG 12 Lead EKG 12 Lead ECG STAT 02/08/2022 7:33 AM EDT [facility] Work Phone: End: 11-21-2018 Hepatitis C RNA, quantitative, PCR Hepatitis C RNA, quantitative, PCR Lab Routine Once for 1 Occurrences starting 11/21/2018 until 11/21/2018 [facility] [place] Comment on above: Once for 1 Occurrenc es starting 11/21/2018 until 11/21/2018 Hepatitis C RNA, quantitative, PCR Hepatitis C RNA, quantitative, PCR Lab Routine 11/21/2018 10:31 AM EDT [facility] [place] Patient referral [facility] Work Phone: Immunizations Immunization Date Immunization Notes Care Provider Bonifacio teixeira 08-20-2015 tetanus toxoid, redu sergio diphtheria toxoid, and acellular pertussis vaccine, adsorbed [facility] Payers Date Payer Category Payer Managed Care (unspecified) [employer] [id number] 2023 Medicaid [employer] [place] DICA[place] [facility] MEDICAID [id number] 2023-Present [id number] [place] [id number] [id number] 2023 Medicaid (Managed Care) [employer] [id number] 2023 Unknown [employer] [id number] 2023-Present [address] [place] [id number] 2023 Unknown [id number] 2023 Self-pay 2023 Unknown [id number] 2018 Medicaid [facility] [place] MEDICAID [facility] [id number] 2018-Present [phone] [address] [address] [place] [address] [id number] 2018 Medicaid [facility] MEDICAID [facility] xxxxxxxxxxxx 2018-Present [phone] [address] [address] [place] [address] xxxxxxxxxxxx [id number] 2018 Medicaid [id number] 1978 Unknown [id number]. 174 1978 Unknown [id number]. 903 1978 Unknown [id number]. 983 1978 Unknown [id number] [id number]. 983 1978 Unknown [id number] 2.16.840.1.045236.3.579.2. 983 1978 Unknown [id number] 2.16.840.1.946706.3.579.2. 983 1978 Unknown [id number] [id number]. 983 1978 Unknown [id number]. 983 1978 Unknown [id number]. 903 Unknown [id number] [id number]. 462 Unknown [id number] [id number]. 462 Unknown [id number] [id number]. 462 Unknown [id number]. 462 Unknown [id number]. 462 Social History Date Type Detail Facility Start: 11-01-2018 End: 03-12-2023 Tobacco smoking status INIS Unknown if ever smoked [facility] Start: 1980 Sex Assigned At Not on file [place], [place] Start: 01-29-2022 End: 02-08-2022 Exposure to SARS-CoV-2 (event) Not sure [facility] [place] Start: 09-05-2020 End: 12-08-2023 Tobacco smoking status INIS Current every day smoker [employer] [facility] History of tobacco use Cigarette Smoker [facility] Start: 09-05-2020 End: 06-02-2024 Cigarettes smoked current (pack per day) - Reported [employer] Work Phone: Start: 09-05-2020 End: 12-08-2023 Tobacco use and exposure Never used [facility] [facility] Start: 02-08-2022 End: 06-01-2024 Alcohol intake Lifetime non-drinker (finding) [employer] Work Phone: Start: 1980 Sex Assigned At Female [facility] Start: 12-08-2023 End: 06-02-2024 Tobacco use panel [facility] Start: 12-08-2023 Sex Female (finding) [facility] NEGATED: Highlighted row [facility] Goals Date Patient Goal Desired Activity /State Functional Status Date Assessment Result Facility 03-14-2023 Functional status [facility]room [facility] Work Phone: Mental Status Date Assessment Result Facility 03-13-2023 Cognitive function Voice/Name [facility] Work Phone: Clinical Notes 02-08-2022 to 06-01-2024 Laxmi Vang, CONTINUITY EDITOR - 06/01/2024 6:05 PM ESTPatient InstructionsAttachRamona Michael Joshua, [facility] - 05/18/2024 7:30 PM Laura Vang, CONTINUITY EDITOR - 05/14/2024 8:25 AM ESTPatient Instructions Note Date & Type Note Facility 06-01-2024 History of Presen t illness Narrative HPI [place] female 1980 presents to the [facility] with Chief Complaint Patient presents with Generalized Body Aches Body aches, abdominal pain, diarrhea, fatigue, and vomiting starting x3days ago. Patient comes with complaints nausea, vomiting, diarrhea that started 3 days ago. She reports that the 2 men that live in the same house have the same symptoms. She is feeling better and has some zofran that she has been using for nausea/vomiting. Needs work note. History Allergies Allergen Reactions Sulfamethoxazole-Trimethoprim Hives Current Outpatient Medications Medication Sig Gabapentin 400 MG capsule Take 2 capsules by mouth 3 times daily. Phenazopyridine 200 MG tablet Take 1 tablet by mouth 3 times daily for 2 days. Past Medical History: Diagnosis Date Anxiety Depression Diabetes mellitus Past Surgical History: Procedure Laterality Date CHOLECYSTECTOMY 2009 TUBAL LIGATION 2006 Social History Socioeconomic History Marital status: Spouse name: Not on file Number of children: Not on file Years of education: Not on file Highest education level: Not on file Occupational History Not on file Tobacco Use Smoking status: Every Day Current packs/day: 0.50 Types: Cigarettes Smokeless tobacco: Never Vaping Use Vaping status: Never Used Substance and Sexual Activity Alcohol use: Never Drug use: Yes Types: Marijuana Sexual activity: Not on file Other Topics Concern Service Not Asked Blood Transfusions Not Asked Caffeine Concern Not Asked Occupational Exposure Not Asked Hobby Hazards Not Asked Sleep Concern Not Asked Stress Concern Not Asked Weight Concern Not Asked Special Diet Not Asked Back Care Not Asked Exercise Not Asked Bike Helmet Not Asked Seat Belt Not Asked Domestic Violence No Social History Narrative Not on file Social Drivers of Health Financial Resource Strain: Not on file Food Insecurity: Not on file Transportation Needs: Not on file Physical Activity: Not on file Stress: Not on file Social Connections: Not on file Personal Safety: Not on file Housing Stability: Not on file Family History Problem Relation Age of Onset Diabetes Mother Diabetes Father ROS Review of Systems 8 systems reviewed with patient, negative unless specifically mentioned in history of present illness PHYSICAL EXAM Visit Vitals BP 164/79 (BP Location: Left arm, BP Position: Sitting) Pulse 78 Temp 98.3 F (36.8 C) (Oral) Resp 24 Ht 1.664 m (5' 5.5) Wt 92.8 kg (204 lb 9.6 oz) LMP 06/01/2024 (Exact Date) SpO2 99% BMI 33.53 kg/m Physical Exam RESULTS No results found for this or any previous visit (from the past 2 hours). ASSESSMENT/PLAN 1. Viral illness 2. Diarrhea, unspecified type Orders Placed This Encounter SARS-COV-2 RAPID ANTIGEN (CLINIC ONLY) POCT INFLUENZA, A B DISCONTD: Ondansetron 4 MG tablet DISCONTD: [id number] extromethorphan 30-2-10 MG/5ML Syrup COVID and influenza negative. At this time clinically patient appears to be sick with Norovirus and this was reviewed with them. BRAT diet and I did suggest that they follow up if the pain and or S/sS persists and or worsens. No emergent findings on exam. Work note provided. Patient was advised to call with any questions or concerns. If symptoms worsen patient was advised to follow up in our office or the Emergency Dept. Benefits, risks, contraindications, and complications of recommended treatments were explained the patient understands and agrees to proceed with plan. This dictation was performed utilizing a dictation software. Please excuse any dictation errors. Laxmi Vang CNP 06/02/2024 documented in this encounter [facility] 06-01-2024 Instructions Laxmi Vang CNP - 06/01/2024 6:05 PM EST Thank you for allowing us to be involved in your care today. Please follow up as discussed during your stay. This information is included in your discharge paperwork. Appropriate follow up is essential in your continued care after today's visit. Go to the Emergency Department at any point with worsening conditions or concerns. The SHIP'S OFFICER and staff of the Urgent Care would like to thank you for choosing our facility for your health care needs. Our goal is to provide exceptional service. You may be receiving a survey in the mail following your visit. Because your feedback is very important to us, we hope you will take the time to complete and return the survey. If for any reason, you feel that you cannot rate us Very Good or 5 for the service you received today, please let us know prior to your discharge. Please follow up with your family doctor or one of your choosing. You may find a provider through the [facility] Referral Service by calling [phone] or by visiting [email or web address] Thank You for choosing the [facility]! The following attachments cannot be sent through Care Everywhere.Viral Infections ([place])documented in this encounter [facility] 05-18-2024 History of Presen t illness Narrative Patient: Al Segundo Patient : 1980 Patient Age: 43 y.o. Today's Date: 05/18/2024 Provider: BRYAN Valderrama History of Present Illness: Patient here today for evaluation of Chief Complaint Patient presents with Dental Pain Started today Patient present with left upper tooth pain and gum swelling. Has a known few bad teeth on left upper side. She has a follow up next week with the dentist. History: Allergies Allergen Reactions Sulfamethoxazole-Trimethoprim Hives Past Medical History: Diagnosis Date Anxiety Depression Diabetes mellitus Past Surgical History: Procedure Laterality Date CHOLECYSTECTOMY 2009 TUBAL LIGATION 2007 Social History Tobacco Use Smoking status: Every Day Current packs/day: 0.50 Types: Cigarettes Smokeless tobacco: Never Vaping Use Vaping status: Never Used Substance Use Topics Alcohol use: Never Drug use: Yes Types: Marijuana Family History Problem Relation Age of Onset Diabetes Mother Diabetes Father Review of Systems: Review of Systems HENT: Positive for dental problem. Physical Exam: Vitals: 05/18/24 1932 BP: 149/82 Pulse: 84 Resp: 15 Temp: 98.6 degrees F (37 degrees C) TempSrc: Oral SpO2: 98% Weight: 94 kg (207 lb 3.2 oz) Height: 1.657 m (5' 5.25) Physical Exam Vitals and nursing note reviewed. HENT: Head: Normocephalic. Right Ear: Tympanic membrane, ear canal and external ear normal. Left Ear: Tympanic membrane, ear canal and external ear normal. Nose: Nose normal. Mouth/Throat: Mouth: Mucous membranes are moist. Dentition: Abnormal dentition. Dental tenderness, gingival swelling, dental caries and dental abscesses present. Pharynx: Oropharynx is clear. Neurological: Mental Status: She is alert. Current Medications: Current Outpatient Medications: Gabapentin 400 MG capsule, Take 2 capsules by mouth 3 times daily., Disp: , Rfl: clindamycin 300 MG capsule, Take 1 capsule by mouth 3 times daily for 10 days., Disp: 30 capsule, Rfl: 0 Phenazopyridine 200 MG tablet, Take 1 tablet by mouth 3 times daily for 2 days., Disp: 6 tablet, Rfl: 0 Health Maintenance List: Health Maintenance Topic Date Due TETANUS Never done HEPATITIS C VIRUS SCREENING Never done PNEUMOCOCCAL VACCINE SERIES (1 of 2 - PCV) Never done HIV SCREENING DISCUSSION Never done HEP B VACCINE (1 of 3 - 19+ 3-dose series) Never done TDAP (ADULT) Never done CERVICAL CANCER SCREENING DISCUSSION Never done MAMMOGRAM SCREENING DISCUSSION Never done LIPID SCREENING Never done INFLUENZA VACCINE (1) Never done COVID-19 VACCINE ( season) Never done COLORECTAL CANCER SCREENING DISCUSSION Never done Assessment & Plan: ICD-10-CM 1. Dental abscess K04.7 Reviewed the dx and tx plan along with the follow up - all questions were answered. Handouts were provided. She can take Motrin or tylenol for pain - salt water gargles. She has no paresthesia over the area. No follow-ups on file. Patient was advised to call with any questions or concerns. If symptoms worsen patient was advised to follow up in our office or the Emergency Dept. Benefits, risks, contraindications, and complications of recommended treatments were explained the patient understands and agrees to proceed with plan. documented in this encounter [facility] 05-14-2024 History of Presen t illness Narrative HPI [place] female 1980 presents to the [facility] with Chief Complaint Patient presents with Nausea Headache Pt is presenting today with N&V, headache, and body aches. Pt expresses pain behind her eyes. Symptoms x 3 days Vomiting Generalized Body Aches Patient comes with complaints of generalized body aches, nausea and vomiting and headache. Vomiting just once. The other symptoms x 3 days. Works at [email or web address] and needs work note for today. Denies urinary symptoms. Denies fever. History Allergies Allergen Reactions Sulfamethoxazole-Trimethoprim Hives Current Outpatient Medications Medication Sig Gabapentin 400 MG capsule Take 2 capsules by mouth 3 times daily. Ondansetron 4 MG Tab Dispersible tablet Take 1 tablet by mouth every 8 hours as needed. Phenazopyridine 200 MG tablet Take 1 tablet by mouth 3 times daily for 2 days. Past Medical History: Diagnosis Date Anxiety Depression Diabetes mellitus Past Surgical History: Procedure Laterality Date CHOLECYSTECTOMY 2009 TUBAL LIGATION 2006 Social History Socioeconomic History Marital status: Spouse name: Not on file Number of children: Not on file Years of education: Not on file Highest education level: Not on file Occupational History Not on file Tobacco Use Smoking status: Every Day Current packs/day: 0.50 Types: Cigarettes Smokeless tobacco: Never Vaping Use Vaping status: Never Used Substance and Sexual Activity Alcohol use: Never Drug use: Yes Types: Marijuana Sexual activity: Not on file Other Topics Concern Service Not Asked Blood Transfusions Not Asked Caffeine Concern Not Asked Occupational Exposure Not Asked Hobby Hazards Not Asked Sleep Concern Not Asked Stress Concern Not Asked Weight Concern Not Asked Special Diet Not Asked Back Care Not Asked Exercise Not Asked Bike Helmet Not Asked Seat Belt Not Asked Domestic Violence No Social History Narrative Not on file Social Determinants of Health Financial Resource Strain: Not on file Food Insecurity: Not on file Transportation Needs: Not on file Physical Activity: Not on file Stress: Not on file Social Connections: Not on file Intimate Partner Violence: Not on file Housing Stability: Not on file History reviewed. No pertinent family history. ROS Review of Systems 8 systems reviewed with patient, negative unless specifically mentioned in history of present illness PHYSICAL EXAM Visit Vitals BP 133/75 (BP Location: Left arm, BP Position: Sitting) Pulse 72 Temp 97.8 F (36.6 C) (Temporal) Ht 1.676 m (5' 6) Wt 95.5 kg (210 lb 9.6 oz) SpO2 99% BMI 33.99 kg/m Physical Exam Vitals and nursing note reviewed. Constitutional: General: She is not in acute distress. Appearance: She is not toxic-appearing or diaphoretic. HENT: Mouth/Throat: Mouth: Mucous membranes are moist. Cardiovascular: Rate and Rhythm: Normal rate and regular rhythm. Pulses: Normal pulses. Heart sounds: Normal heart sounds. Pulmonary: Effort: Pulmonary effort is normal. No respiratory distress. Breath sounds: Normal breath sounds. No stridor. No wheezing, rhonchi or rales. Chest: Chest wall: No tenderness. Abdominal: Palpations: Abdomen is soft. Skin: General: Skin is warm and dry. Neurological: General: No focal deficit present. Mental Status: She is alert and oriented to person, place, and time. RESULTS Recent Results (from the past 2 hour(s)) SARS-COV-2 RAPID ANTIGEN (CLINIC ONLY) Collection Time: 05/14/24 9:20 AM Specimen: NARES Result Value Ref Range SARS-COV-2 Rapid Antigen NOT DETECTED NOT DETECTED NARRATIVE -1 This test was performed using lateral flow immunoassay. This test does not differentiate between SARS-CoV and SARS-CoV2. POCT INFLUENZA, A B Collection Time: 05/14/24 9:20 AM Result Value Ref Range POCT Influenza A Negative Negative, Not Tested, Invalid, Not Detected POCT Influenza B Negative Negative, Not Tested, Invalid, Not Detected ASSESSMENT/PLAN 1. Viral illness 2. Nausea Orders Placed This Encounter SARS-COV-2 RAPID ANTIGEN (CLINIC ONLY) POCT INFLUENZA, A B Ondansetron 4 MG Tab Dispersible tablet Patient presents with findings consistent with a viral infection. She is nontoxic in appearance. Influenza and coronavirus are negative. Continue [id number] Tylenol and ibuprofen. Zofran sent for n/v. BRAT diet and advance as tolerated. If any new or worsening symptoms advised to be re-evaluated. Patient agrees the patient is discharged home stable with work note. Laxmi Vang CNP 05/14/2024 documented in this encounter [facility] 05-14-2024 Instructions Laxmi Vang CNP - 05/14/2024 8:25 AM EST Thank you for allowing us to be involved in your care today. Please follow up as discussed during your stay. This information is included in your discharge paperwork. Appropriate follow up is essential in your continued care after today's visit. Go to the Emergency Department at any point with worsening conditions or concerns. The SHIP'S OFFICER and staff of the Urgent Care would like to thank you for choosing our facility for your health care needs. Our goal is to provide exceptional service. You may be receiving a survey in the mail following your visit. Because your feedback is very important to us, we hope you will take the time to complete and return the survey. If for any reason, you feel that you cannot rate us Very Good or 5 for the service you received today, please let us know prior to your discharge. Please follow up with your family doctor or one of your choosing. You may find a provider through the [facility]erral [facility] by calling [phone] or by visiting [email or web address] Thank You for choosing the [facility]! The following attachments cannot be sent through Care Everywhere.Viral Infections (Palauan)documented in this encounter [facility] 12-08-2023 History of Presen t illness Narrative JENNIFER Segundo female 1980 presents to the [facility] with Chief Complaint Patient presents with Urinary Pain Started yesterday, lower abdomen pain, sharp shooting pain, burning, hurts at the end of the stream. Patient comes with complaints of abdominal pain, urinary pain. She states that abdominal pain has been about a week but she thought it might be related to some dental infection, started having pain with urination yesterday. She denies any concern for STDs or at this time. History No Known Allergies Current Outpatient Medications Medication Sig Aripiprazole 5 MG tablet Take 1 tablet by mouth at bedtime. Buprenorphine 8 MG sublingual tablet dissolve 1 tablet under the tongue twice a day Gabapentin 400 MG capsule Take 2 capsules by mouth 3 times daily. Nitrofurantoin, macrocrystal-monohydrate, 100 MG capsule Take 1 capsule by mouth 2 times daily for 7 days. Take w/ food/milk Phenazopyridine 200 MG tablet Take 1 tablet by mouth 3 times daily for 2 days. History reviewed. No pertinent family history. No past medical history on file. Past Surgical History: Procedure Laterality Date CHOLECYSTECTOMY 2009 TUBAL LIGATION 2007 Social History Socioeconomic History Marital status: Spouse name: Not on file Number of children: Not on file Years of education: Not on file Highest education level: Not on file Occupational History Not on file Tobacco Use Smoking status: Every Day Current packs/day: 0.50 Types: Cigarettes Smokeless tobacco: Never Vaping Use Vaping status: Never Used Substance and Sexual Activity Alcohol use: Never Drug use: Yes Types: Marijuana Sexual activity: Not on file Other Topics Concern Service Not Asked Blood Transfusions Not Asked Caffeine Concern Not Asked Occupational Exposure Not Asked Hobby Hazards Not Asked Sleep Concern Not Asked Stress Concern Not Asked Weight Concern Not Asked Special Diet Not Asked Back Care Not Asked Exercise Not Asked Bike Helmet Not Asked Seat Belt Not Asked Domestic Violence No Social History Narrative Not on file Social Determinants of Health Financial Resource Strain: Not on file Food Insecurity: Not on file Transportation Needs: Not on file Physical Activity: Not on file Stress: Not on file Social Connections: Not on file Intimate Partner Violence: Not on file Housing Stability: Not on file ROS Review of Systems 8 systems reviewed with patient, negative unless specifically mentioned in history of present illness PHYSICAL EXAM Visit Vitals BP 155/66 (BP Location: Left arm, BP Position: Sitting) Pulse 78 Temp 97.8 F (36.6 C) (Oral) Ht 1.676 m (5' 6) Wt 100.2 kg (221 lb) SpO2 99% BMI 35.67 kg/m Physical Exam Vitals and nursing note reviewed. Constitutional: General: She is not in acute distress. Appearance: She is not ill-appearing, toxic-appearing or diaphoretic. HENT: Mouth/Throat: Mouth: Mucous membranes are moist. Cardiovascular: Rate and Rhythm: Normal rate and regular rhythm. Pulses: Normal pulses. Heart sounds: Normal heart sounds. Pulmonary: Effort: Pulmonary effort is normal. Breath sounds: Normal breath sounds. Skin: General: Skin is warm and dry. Neurological: General: No focal deficit present. Mental Status: She is alert and oriented to person, place, and time. RESULTS No results found for this or any previous visit (from the past 2 hour(s)). ASSESSMENT/PLAN 1. Urinary frequency 2. Cystitis with hematuria Orders Placed This Encounter URINE CULTURE AMB REFERRAL TO FAMILY PRACTICE POCT URINE DIPSTICK AUTOMATED Nitrofurantoin, macrocrystal-monohydrate, 100 MG capsule Phenazopyridine 200 MG tablet Urine dipstick consistent with UTI. Start on Macrobid and send urine for culture. Pyridium for pain. Patient follows with an addiction medicine and [place] but states she would like to follow in this office as she does not typically have transportation and this is much closer for her. Will place referral for PCP and addiction medicine with Tk Rodríguez CNP Patient was advised to call with any questions or concerns. If symptoms worsen patient was advised to follow up in our office or the Emergency Dept. Benefits, risks, contraindications, and complications of recommended treatments were explained the patient understands and agrees to proceed with plan. Laxmi Vang CNP 12/08/2023 documented in this encounter [facility] 12-08-2023 Instructions Laxmi Vang CNP - 12/08/2023 8:35 AM EDT Thank you for allowing us to be involved in your care today. Please follow up as discussed during your stay. This information is included in your discharge paperwork. Appropriate follow up is essential in your continued care after today's visit. Go to the Emergency Department at any point with worsening conditions or concerns. The SH[facility] [facility] and staff of the Urgent Care would like to thank you for choosing our facility for your health care needs. Our goal is to provide exceptional service. You may be receiving a survey in the mail following your visit. Because your feedback is very important to us, we hope you will take the time to complete and return the survey. If for any reason, you feel that you cannot rate us Very Good or 5 for the service you received today, please let us know prior to your discharge. Please follow up with your family doctor or one of your choosing. You may find a provider through the [facility]erral [facility] by calling [phone] or by visiting [email or web address] Thank You for choosing the [facility]! The following attachments cannot be sent through Care Everywhere.UTI (Urinary Tract Infection): Female (Palauan)documented in this encounter [facility] 03-14-2023 Consult note Note Date/Time March 14, 2023 10:11am [facility] Medical Records Department [address] [place] [address] Counseling Note - Pharmacy 03/14/23 1011 MR#: [id number] Acct: [id number] Name: AL SEGUNDO Rep #:[id number] : 1980 42 From: Yves Molina PCP: Care Physician,No Primary Status :ADM IN Y Location: [place] [address] Pharmacy [place] Med Reconciliation Pharmacy Service has performed discharge medication reconciliation for this patient. The patient's discharge medication list was reviewed for discrepancies and discrepancies were resolved. 03/14/23 101 <Electronically signed by Yves jalloh> Date _ Yves Pantojaigner Signature (if applicable): Date CC: ~ Signed [facility] Work Phone: 1(517) 275-249912-04-2023 Discharge summary Author Adriel Moore [facility] March 14, 2023 10:07am Note Date/Time March 14, 2023 7 :52am [facility] Medical Records Department [address] [place] [address] Discharge Summary 03/14/23 0752 MR#: [id number] Acct: [id number] Name: AL SEGUNDO Rep #:[id number] : 1980 42 From: Adriel Moore MD PCP: Care Physician,No Primary Status :ADM IN Location: [place] [address] Providers Date of Admission: 03/11/23 Date of Discharge: 03/14/23 Primary Care Physician: No Primary Care Phys Reason For Visit: OPIATE WITHDRAWAL. Diagnosis Discharge Diagnosis (1) Opiate withdrawal: Status: Acute Code(s): F11.93 - Opioid use, unspecified with withdrawal Hospital Course Summary of Care Provided Minutes Spent on Discharge: 35 Hospital Course: Patient is a 42-year-old lady with history of chronic opioid dependence admittedwith acute opioid withdrawal 1. Acute opiate withdrawal patient was admitted to regular nursing floor managed with ibuprofen and taper in addition to adjuvant medication for symptomspatient did improve with therapy 2. Diabetes mellitus type 2 ? Managed with diet 3. Polysubstance abuse ? Including marijuana crack cocaine and heroin ? Counseled on cessation 4. DVT prophylaxis ? Low risk did encourage ambulation Physical Exam Narrative GENERAL: cooperative HEENT: Atraumatic; normocephalic EYES; Anicteric, Normal Conjunctiva NECK; supple, normal thyroid, RESPIRATORY: Diminished to auscultation CARDIOVASCULAR: Regular S1 S2, GI: soft, normoactive bowel sounds, : No Renal angle tenderness; EXTREMITIES: No edema, no clubbing, MUSCULOSKELETAL: no muscle wasting NEURO: Awake; no lateralizing signs. SKIN: No Rash PSYCH; Flat affect Weight / BMI Weight Weight: 91.7 kg Body Mass Index (BMI) 32.6 ABG / Lab / Microbiology Data 03/11/23 19:30 03/11/23 19:30 D/C Instructions Discharge Diet: No restrictions Discharge Activity: Return to Normal Activity Call your doctor if you observe: Fever of 101 or Higher, Shortness of breath, Fainting spells and Chest pain Meaningful Use Info Meaningful Use Diagnoses (Choose all that apply): None applicable Discharge Plan Admission Admit Date/Time: 03/11/23 22:46 Attending Provider: Adriel Moore Primary Care Provider: Care Physician,No Primary Consulting Providers: Patricio Mckenzie; Dayami Perez Discharge Orders/Prescriptions Referrals / Follow Up: Care Physician,No Primary [Primary Care Provider] - 03/14/23 12:07 pm Disposition Disposition (needs filled in before D/C Order can be placed): Home, Self Care Charges/Coding Visit Charges Inpatient E&M: 26022 Disch Hosp >30min 03/14/23 1007 <Electronically signed by Adriel Moore MD> Cosigner Signature (if applicable): CC: Dr. Adriel Moore MD; No Primary Care Physician~ Signed [facility] Work Phone: 1(407) 400-450612-04-2023 [facility] Medical Records Department [address] [place] [address] Discharge Summary 03/14/23 0752 MR#: [id number] Acct: [id number] Name: AL SEGUNDO Rep #: [id number] : 1980 42 From: Adriel Moore MD PCP: Genna Physician,No Primary Status:ADM IN Location: [place] [address] Providers Date of Admission: 03/11/23 Date of Discharge: 03/14/23 Primary Care Physician: No Primary Care Phys Reason For Visit: OPIATE WITHDRAWAL. Diagnosis Discharge Diagnosis (1) Opiate withdrawal: Status: Acute Code(s): F11.93 - Opioid use, unspecified with withdrawal Hospital Course Summary of Care Provided Minutes Spent on Discharge: 35 Hospital Course: Patient is a 42-year-old lady with history of chronic opioid dependence admitted with acute opioid withdrawal 1. Acute opiate withdrawal patient was admitted to regular nursing floor managed with ibuprofen and taper in addition to adjuvant medication for symptoms patient did improve with therapy 2. Diabetes mellitus type 2 ??? Managed with diet 3. Polysubstance abuse ??? Including marijuana crack cocaine and heroin ??? Counseled on cessation 4. DVT prophylaxis ??? Low risk did encourage ambulation Physical Exam Narrative GENERAL: cooperative HEENT: Atraumatic; normocephalic EYES; Anicteric, Normal Conjunctiva NECK; supple, normal thyroid, RESPIRATORY: Diminished to auscultation CARDIOVASCULAR: Regular S1 S2, GI: soft, normoactive bowel sounds, : No Renal angle tenderness; EXTREMITIES: No edema, no clubbing, MUSCULOSKELETAL: no muscle wasting NEURO: Awake; no lateralizing signs. SKIN: No Rash PSYCH; Flat affect Weight / BMI Weight Weight: 91.7 kg Body Mass Index (BMI) 32.6 ABG / Lab / Microbiology Data 03/11/23 19:30 03/11/23 19:30 D/C Instructions Discharge Diet: No restrictions Discharge Activity: Return to Normal Activity Call your doctor if you observe: Fever of 101 or Higher, Shortness of breath, Fainting spells and Chest pain Meaningful Use Info Meaningful Use Diagnoses (Choose all that apply): None applicable Discharge Plan Admission Admit Date/Time: 03/11/23 22:46 Attending Provider: Adriel Moore Primary Care Provider: Care Physician,No Primary Consulting Providers: Patricio Mckenzie; Dayami Perez Discharge Orders/Prescriptions Referrals / Follow Up: Care Physician,No Primary [Primary Care Provider] - 03/14/23 12:07 pm Disposition Disposition (needs filled in before D/C Order can be placed): Home, Self Care Charges/Coding Visit Charges Inpatient E M: 96395 Disch Hosp >30min 03/14/23 1007 Cosigner Signature (if applicable): CC: Dr. Adriel Moore MD; No [facility] Progress note Author Dayami Perez [facility] March 13, 2023 10:31am Note Date/Time March 13, 2023 7 :45am [facility] Medical Records Department [address] [place] [address] Progress Note - Hospitalist 03/13/2344 MR#: [id number] Acct: [id number] Name: AL SEGUNDO Rep #:[id number] : 1980 42 From: Dayami Perez MD PCP: Care Physician,No Primary Status :ADM IN Location: [address] Reason for Visit Reason for Visit: Diagnoses Opioid use, unspecified with withdrawal (03/11/23) Subjective Subjective Feeling better with present medications, very appreciative of help with her detox Objective Data Objective Data Vital Signs: Vital Signs Temp Pulse Resp BP Pulse Ox O2 Del Method 98 F 78 16 121/78 H 97 Room Air 03/13/23 05:00 03/13/23 05:00 03/13/23 05:00 03/13/23 05:00 03/13/23 05:00 03/13/23 05:00 Oxygen Delivery Method Room Air Weight: 91.7 kg Body Mass Index (BMI) 32.6 Intake & Output: Intake and Output for Last 24 Hours 03/11/23 03/12/23 03/13/23 23:59 23:59 23:59 Intake Total 1000 / 1000 Balance 1000 / 1000 Lab / Micro Data 03/11/23 19:30 03/11/23 19:30 Physical Exam Narrative General: Alert, oriented, no apparent distress HEENT: Atraumatic, normocephalic Eyes: extraocular movements grossly intact Neck: Supple Respiratory: normal respiratory effort Cardiovascular: no edema appreciated GI: nondistended Extremities: Moving all extremities Neuro: No overt focal neurological deficits Psych: Cooperative Assessment & Plan Assessment/Plan (1) Opiate withdrawal: PLAN: Patient had tried doing this on her own and quit 2 days prior to admission. Symptoms were too intense for her at home. Patient will be initiated on buprenorphine taper as well as other agents to help with other somatic complaints as needed from her withdrawal. Patient understands that she will be here for about 3 days and then look at having addiction medicine evaluate her on Tuesday to see about some outpatient programs that she may benefit from. She is open to the program and willing to proceed to discuss withaddiction medicine on Tuesday. -03/12: Beginning to feel better on Subutex taper, continue present management, continue supportive care -03/13: Subutex taper through tomorrow then can likely DC for outpatient follow- up PLAN: Plan History of diabetes mellitus type 2: Patient had been on medications before but had been taken off by her primary care doctor this is reportedly her blood sugardoing fairly well. Blood sugar here is 110. She does not follow diabetic diet. Recommend that she follow-up with her primary care provider as outpatient. VTE prophylaxis: Low risk and not indicated at this time. Charges/Coding Visit Charges Inpatient E&M: 61064 Subs Hosp L1 03/13/23 1031 <Electronically signed by Dayami Perez MD> Cosigner Signature (if applicable): CC: ~ Signed [facility] Work Phone: 1(688) 982-794312-02-2023 Progress note Author Dayami Perez [facility] March 12, 2023 9:39am Note Date/Time March 12, 2023 9 :39am [facility] Medical Records Department [address] [place] [id number] Progress Note - Hospitalist 03/12/23 0934 MR#: [id number] Acct: [id number] Name: AL SEGUNDO Rep #:[id number] : 1980 42 From: Dayami Perez MD PCP: Care Physician,No Primary Status :ADM IN Location: [facility] [id number] Reason for Visit Reason for Visit: Diagnoses Opioid use, unspecified with withdrawal (03/11/23) Subjective Subjective Pt beginning to feel better on supportive medications, achiness improving Objective Data Objective Data Vital Signs: Vital Signs Temp Pulse Resp BP Pulse Ox O2 Del Method 97.7 F L 89 16 148/93 H 99 Room Air 03/12/23 07:01 03/12/23 07:01 03/12/23 07:01 03/12/23 07:01 03/12/23 07:01 03/12/23 07:01 Oxygen Delivery Method Room Air Weight: 91.7 kg Body Mass Index (BMI) 32.6 Intake & Output: Intake and Output for Last 24 Hours 03/10/23 03/11/23 03/12/23 23:59 23:59 23:59 Intake Total 1000 / 1000 Balance 1000 / 1000 Lab / Micro Data 03/11/23 19:30 03/11/23 19:30 Labs: Laboratory Results - last 24 hr 03/11/23 19:30: WBC 11.0, RBC 5.53 H, Hgb 15.9 H, Hct 47.5 H, MCV 85.9, MCH 28.8, MCHC 33.5, RDW Std Deviation 42.3, RDW Coeff of Terrence 13.4, Plt Count 188, MPV 11.2, Immature Gran % (Auto) 0.300, Neut % (Auto) 66.9, Lymph % (Auto) 26.5,[place] % (Auto) 5.7, Eos % (Auto) 0.5, Baso % (Auto) 0.1, Absolute Neuts (auto) 7.3, Absolute Lymphs (auto) 2.90, Nucleated RBC % 0, Sodium 139, Potassium 3.7, Chloride 108 H, Carbon Dioxide 25.0, Anion Gap 6, BUN 12, Creatinine 0.91, EstimCreat Clear Calc 73.85, Est GFR (MDRD) Af Amer 86, Est GFR (MDRD) Non-Af 71, BUN/Creatinine Ratio 13.2, Glucose 110 H, Calcium 9.1, Total Bilirubin 0.50, AST11 L, ALT 21, Alkaline Phosphatase 71, Troponin I High Sens 14, Total Protein 8.4 H, Albumin 3.8, Globulin 4.6 H, Albumin/Globulin Ratio 0.8 L, Urine Test Negative, Urine Opiates Screen NEGATIVE, Urine Methadone Screen NEGATIVE, Ur Barbiturates Screen NEGATIVE, Ur Phencyclidine Scrn NEGATIVE, Ur Amphetamines Screen NEGATIVE, MDMA (Ecstasy) Screen POSITIVE H, U Benzodiazepines Scrn NEGATIVE, Urine Cocaine Screen NEGATIVE, U Cannabinoids Screen POSITIVE H, Ur Drug Screen Comment , Ethyl Alcohol < 3.0 Physical Exam Narrative General: Alert, oriented, no apparent distress HEENT: Atraumatic, normocephalic Eyes: extraocular movements grossly intact Neck: Supple Respiratory: normal respiratory effort Cardiovascular: no edema appreciated GI: nondistended Extremities: Moving all extremities Neuro: No overt focal neurological deficits Psych: Cooperative Assessment & Plan Assessment/Plan (1) Opiate withdrawal: PLAN: Patient had tried doing this on her own and quit 2 days prior to admission. Symptoms were too intense for her at home. Patient will be initiated on buprenorphine taper as well as other agents to help with other somatic complaints as needed from her withdrawal. Patient understands that she will be here for about 3 days and then look at having addiction medicine evaluate her onMonday to see about some outpatient programs that she may benefit from. She is open to the program and [facility] -[facility]12: Beginning to feel better on Subutex taper, continue present management, continue supportive care PLAN: Plan History of diabetes mellitus type 2: Patient had been on medications before but had been taken off by her primary care doctor this is reportedly her blood sugardoing fairly well. Blood sugar here is 110. She does not follow diabetic diet. Recommend that she follow-up with her primary care provider as outpatient. VTE prophylaxis: Low risk and not indicated at this time. Charges/Coding Visit Charges Inpatient E&M: 69548 Subs Hosp L1 03/12/23 0939 <Electronically signed by Dayami Perez MD> Cosigner Signature (if applicable): CC: ~ Signed [facility] Work Phone: 1(722) 657-296212-02-2023 History and physical note Author Patricio Mckenzie [facility] March 11, 2023 10:51pm Note Date/Time March 11, 2023 1 0:52pm [facility] Medical Records Department [address] [place] [address] [place] [address] H&P Exam - Hospitalist 03/11/23 2248 MR#: [id number] Acct: [id number] Name: AL SEGUNDO Rep #:[id number] : 1980 42 From: Patricio Mckenzie DO PCP: Care Physician,No Primary Status :ADM IN Location: [facility]3 [id number] HPI - General General Date of Admission: 03/11/23 Date of Service: 03/11/23 Chief Complaint: Requesting opiate withdrawal treatment HPI Narrative AL SEGUNDO, is a 42 F who presents requesting treatment for opiate withdrawal. Patient smokes heroin in addition to using cocaine and marijuana. Patient's last use was about 2 days ago. She is try to do this on her own but the symptoms of her opiate withdrawal became too intense. Been experiencing nausea, severe abdominal cramps and feeling that her bones are being crushed. Patient had been sober for period of time but relapsed and December 2021 and has been using opiates ever since. [facility] Medical History (Updated 03/11/23 @ 22:[address] Patricio Mckenzie DO) Diabetes mellitus, type 2 Allergy/AdvReac Type Severity Reaction Status Date / Time No Known Allergies Allergy Verified 03/11/23 18:18 Family History (Updated 03/11/23 @ 22:[address] Patricio Mckenzie DO) Other Diabetes Social History (Updated 03/11/23 @ 22:[address] Patricio Mckenzie DO) Smoking Status: Current every day smoker tobacco type: cigarettes alcohol intake: former substance use type: marijuana, crack/cocaine and heroin ROS ROS Narrative All review of systems were negative except as mentioned above in the history of present illness and the other review of systems. Vital Signs Vital Signs Vital Signs: 03/11/23 18:18 03/11/23 21:23 Temperature 36.3 C L 35.9 C L Temperature Source Temporal Pulse Rate 160 H 63 Respiratory Rate 22 H 16 Blood Pressure 108/81 H 145/89 H Blood Pressure Mean 90 107 Pulse Ox 96 96 Oxygen Delivery Method Room Air Weight Weight: 93.7 kg Body Mass Index (BMI) 33.3 Physical Exam Const alert and no apparent distress HEENT normocephalic and head/scalp atraumatic Resp normal respiratory effort, no retractions, no use of accessory muscles and clearto auscultation bilaterally Cardio regular rate, regular rhythm, S1 normal heart sound and S2 normal heart sound GI normal to inspection, nondistended, normoactive bowel sounds, soft to palpation,non-tender and non-distended Extremity normal to inspection and full ROM Neuro moves all extremities Sensorium / Orientation: awake and alert Psych affect normal Results Lab / Micro Data 12/01/23 19:30 03/11/23 19:30 Labs: Laboratory Results - last 24 hr 03/11/23 19:30: WBC 11.0, RBC 5.53 H, Hgb 15.9 H, Hct 47.5 H, MCV 85.9, MCH 28.8, MCHC 33.5, RDW Std Deviation 42.3, RDW Coeff of Terrence 13.4, Plt Count 188, MPV11.2, Immature Gran % (Auto) 0.300, Neut % (Auto) 66.9, Lymph % (Auto) 26.5, [place] % (Auto) 5.7, Eos % (Auto) 0.5, Baso % (Auto) 0.1, Absolute Neuts (auto) 7.3, Absolute Lymphs (auto) 2.90, Nucleated RBC % 0, Sodium 139, Potassium 3.7, Chloride 108 H, Carbon Dioxide 25.0, Anion Gap 6, BUN 12, Creatinine 0.91, EstimCreat Clear Calc 73.85, Est GFR (MDRD) Af Amer 86, Est GFR (MDRD) Non-Af 71, BUN/Creatinine Ratio 13.2, Glucose 110 H, Calcium 9.1, Total Bilirubin 0.50, AST 11L, ALT 21, Alkaline Phosphatase 71, Troponin I High Sens 14, Total Protein 8.4 H, Albumin 3.8, Globulin 4.6 H, Albumin/Globulin Ratio 0.8 L, Urine Test Negative, Urine Opiates Screen NEGATIVE, Urine Methadone Screen NEGATIVE, Ur Barbiturates Screen NEGATIVE, Ur Phencyclidine Scrn NEGATIVE, Ur AmphetaminesScreen NEGATIVE, MDMA (Ecstasy) Screen POSITIVE H, U Benzodiazepines Scrn NEGATIVE, Urine Cocaine Screen NEGATIVE, U Cannabinoids Screen POSITIVE H, Ur Drug Screen Comment , Ethyl Alcohol < 3.0 Assessment & Plan Assessment/Plan (1) Opiate withdrawal: PLAN: Patient had tried doing this on her own and quit 2 days prior to admission. Symptoms were too intense for her at home. Patient will be initiated on buprenorphine taper as well as other agents to help with other somatic complaints as needed from her withdrawal. Patient understands that she will be here for about 3 days and then look at having addiction medicine evaluate her on Tuesday to see about some outpatient programs that she may benefit from. She is open to the program and [facility]. PLAN: Plan History of diabetes mellitus type 2: Patient had been on medications before but had been taken off by her primary care doctor this is reportedly her blood sugardoing fairly well. Blood sugar here is 110. She does not follow diabetic diet. Recommend that she follow-up with her primary care provider as outpatient. VTE prophylaxis: Low risk and not indicated at this time. Charges/Coding Visit Charges Inpatient E&M: 62465 Init Hosp L2 03/11/23 2251 <Electronically signed by Patricio Mckenzie DO> Cosigner Signature (if applicable): CC: Dr. Patricio Mckenzie DO; No Primary Care Physician~ Signed [facility] Work Phone: 1(684) 163-601712-01-2023 Discharge summary Author Lance Martin [facility] March 11, 2023 9:51pm Note Date/Time March 11, 2023 9 :49pm [facility] Medical Records Department [address] [place] [address] Emergency Department Summary 03/11/23 MR#: [id number] Acct: [id number] Name: AL SEGUNDO Rep #:[id number] : 1980 42 From: Lance Martin DO PCP: Care Physician,No Primary Status :REG ER Location: ED HPI History of Present Illness Chief Complaint: Substance Abuse Narrative Narrative: 2-year-old female presenting for opioid detox. She states she uses heroin and is not sure if uses fentanyl. Last use was 2 days ago. She states she feels like her body is caving in on her for today. She is unable to walk without getting tachycardic. She feels rundown. Last detox was over a year ago. She currently smokes heroin and does not inject it. She states that 4 years ago sheused to injected. Patient requesting detox due to his symptoms. Denies any significant medical problems otherwise PFSH PFSH Allergy/AdvReac Type Severity Reaction Status Date / Time No Known Allergies Allergy Verified 03/11/23 18:18 Social History Smoking Status: Current every day smoker tobacco type: cigarettes ROS ROS ED Constitutional Constitutional ED: Denies chills, fever(s) or sweats Eyes Eyes: Denies blurry vision or change in vision ENT ENT ED: Denies ear pain or sore throat Cardiovascular Cardiovascular: Denies chest pain, palpitations or racing heartbeat Respiratory/Chest Respiratory/Chest: Denies cough, dyspnea or sputum Gastrointestinal Gastrointestinal: Denies abdominal pain, constipation, diarrhea, nausea or vomiting Genitourinary Genitourinary ED: Denies dysuria, hematuria or urinary frequency Musculoskeletal Musculoskeletal: Denies arthralgias, myalgias or neck pain Integumentary Denies abscess, Abrasions or rash Neurologic Neurologic: Denies headache(s), paresthesias or weakness Psychiatric Psychiatric: Denies anxiety, depression, suicidal ideation or suicidal thoughts Endocrine Endocrinology: Denies polydipsia or polyuria EXAM Physical Exam Const Vital Signs: 03/11/23 18:18 03/11/23 21:23 Temperature 97.3 F L 96.6 F L Temperature Source Temporal Pulse Rate 160 H 63 Respiratory Rate 22 H 16 Blood Pressure 108/81 H 145/89 H Blood Pressure Mean 90 107 Pulse Ox 96 96 Oxygen Delivery Method Room Air Positive well nourished General Appearance ED: NAD; Negative for pallor HEENT Reports moist mucous membranes atraumatic Eyes PERRL and EOMs intact bilaterally Neck no lymphadenopathy Resp normal respiratory effort and clear to auscultation bilaterally Auscultation: Negative for rales, rhonchi or wheezes Cardio regular rate Rate: tachycardic GI soft to palpation Neuro oriented x3 and CN's II-XII intact bilaterally Sensorium / Orientation: alert Psych mental status grossly normal and thought process normal Skin General Skin Exam: Negative for jaundice or pallor MDM MDM MDM Narrative Medical decision making narrative: Patient presenting for opioid detox. Appropriate lab work was obtained. Patient noted to be tachycardic at 160 on arrival. I obtained an EKG to make sure there is no dysrhythmia associated with the my interpretation of the EKG issinus rhythm with a ventricular rate of 68 bpm without sign of ischemic change or ectopy. CBC, CMP unremarkable. Screen positive for the boys and MDMA. Negative for opiates. She is unsure if she is using fentanyl. High-sensitivitytroponin was 14. Because of the tachycardia patient was given IV fluids. Sinceher work-up is ultimately normal. Her admitted and speak to the hospitalist. Impression: 1. History of opioid abuse 2. Presentation for opioid detox 3. Tachycardia?resolved Lab Data Attestation: I reviewed the patient's lab results. Labs: Laboratory Results - last 24 hr 03/11/23 19:30 WBC 11.0 RBC 5.53 H Hgb 15.9 H Hct 47.5 H MCV 85.9 MCH 28.8 MCHC 33.5 RDW Std Deviation 42.3 RDW Coeff of Terrence 13.4 Plt Count 188 MPV 11.2 Immature Gran % (Auto) 0.300 Neut % (Auto) 66.9 Lymph % (Auto) 26.5 [place] % (Auto) 5.7 Eos % (Auto) 0.5 Baso % (Auto) 0.1 Absolute Neuts (auto) 7.3 Absolute Lymphs (auto) 2.90 Nucleated RBC % 0 Sodium 139 Potassium 3.7 Chloride 108 H Carbon Dioxide 25.0 Anion Gap 6 BUN 12 Creatinine 0.91 Estim Creat Clear Calc 73.85 Est GFR (MDRD) Af Amer 86 Est GFR (MDRD) Non-Af 71 BUN/Creatinine Ratio 13.2 Glucose 110 H Calcium 9.1 Total Bilirubin 0.50 AST 11 L ALT 21 Alkaline Phosphatase 71 Troponin I High Sens 14 Total Protein 8.4 H Albumin 3.8 Globulin 4.6 H Albumin/Globulin Ratio 0.8 L Urine Test Negative Urine Opiates Screen NEGATIVE Urine Methadone Screen NEGATIVE Ur Barbiturates Screen NEGATIVE Ur Phencyclidine Scrn NEGATIVE Ur Amphetamines Screen NEGATIVE MDMA (Ecstasy) Screen POSITIVE H U Benzodiazepines Scrn NEGATIVE Urine Cocaine Screen NEGATIVE U Cannabinoids Screen POSITIVE H Ur Drug Screen Comment Ethyl Alcohol < 3.0 Discharge Plan Triage Chief Complaint: Substance Abuse ED Provider: Lance Martin Dx/Rx/DC Orders Primary Care Provider: Care Physician,No Primary Referrals: Care Physician,No Primary [Primary Care Provider] - What to do if you have Problems For any increased pain, shortness of breath, bleeding, nausea or vomiting, chestpain, or any unexpected problems, contact your Primary Care Provider. Call [facility] ([phone]) or report to the closest Emergency Room. Call 911 if necessary. 03/11/232150 <Electronically signed by Lance Martin DO> Cosigner Signature (if applicable): CC: No Primary Care Physician ~ Signed [facility] Work Phone: [phone]) 230-632612-01-2023 Discharge summary Author Lance Martin [facility] March 11, 2023 9:51pm Note Date/Time March 11, 2023 9 :49pm [facility] Medical Records Department [address] [place] [address] Emergency Department Summary 03/11/23 MR#: [id number] Acct: [id number] Name: AL SEGUNDO Rep #:[id number] : 1980 42 From: Lance Martin DO PCP: Care Physician,No Primary Status :REG ER Location: ED HPI History of Present Illness Chief Complaint: Substance Abuse Narrative Narrative: 2-year-old female presenting for opioid detox. She states she uses heroin and is not sure if uses fentanyl. Last use was 2 days ago. She states she feels like her body is caving in on her for today. She is unable to walk without getting tachycardic. She feels rundown. Last detox was over a year ago. She currently smokes heroin and does not inject it. She states that 4 years ago sheused to injected. Patient requesting detox due to his symptoms. Denies any significant medical problems otherwise PFSH PFSH Allergy/AdvReac Type Severity Reaction Status Date / Time No Known Allergies Allergy Verified 03/11/23 18:18 Social History Smoking Status: Current every day smoker tobacco type: cigarettes ROS ROS ED Constitutional Constitutional ED: Denies chills, fever(s) or sweats Eyes Eyes: Denies blurry vision or change in vision ENT ENT ED: Denies ear pain or sore throat Cardiovascular Cardiovascular: Denies chest pain, palpitations or racing heartbeat Respiratory/Chest Respiratory/Chest: Denies cough, dyspnea or sputum Gastrointestinal Gastrointestinal: Denies abdominal pain, constipation, diarrhea, nausea or vomiting Genitourinary Genitourinary ED: Denies dysuria, hematuria or urinary frequency Musculoskeletal Musculoskeletal: Denies arthralgias, myalgias or neck pain Integumentary Denies abscess, Abrasions or rash Neurologic Neurologic: Denies headache(s), paresthesias or weakness Psychiatric Psychiatric: Denies anxiety, depression, suicidal ideation or suicidal thoughts Endocrine Endocrinology: Denies polydipsia or polyuria EXAM Physical Exam Const Vital Signs: 03/11/23 18:18 03/11/23 21:23 Temperature 97.3 F L 96.6 F L Temperature Source Temporal Pulse Rate 160 H 63 Respiratory Rate 22 H 16 Blood Pressure 108/81 H 145/89 H Blood Pressure Mean 90 107 Pulse Ox 96 96 Oxygen Delivery Method Room Air Positive well nourished General Appearance ED: NAD; Negative for pallor HEENT Reports moist mucous membranes atraumatic Eyes PERRL and EOMs intact bilaterally Neck no lymphadenopathy Resp normal respiratory effort and clear to auscultation bilaterally Auscultation: Negative for rales, rhonchi or wheezes Cardio regular rate Rate: tachycardic GI soft to palpation Neuro oriented x3 and CN's II-XII intact bilaterally Sensorium / Orientation: alert Psych mental status grossly normal and thought process normal Skin General Skin Exam: Negative for jaundice or pallor MDM MDM MDM Narrative Medical decision making narrative: Patient presenting for opioid detox. Appropriate lab work was obtained. Patient noted to be tachycardic at 160 on arrival. I obtained an EKG to make sure there is no dysrhythmia associated with the my interpretation of the EKG issinus rhythm with a ventricular rate of 68 bpm without sign of ischemic change or ectopy. CBC, CMP unremarkable. Screen positive for the boys and MDMA. Negative for opiates. She is unsure if she is using fentanyl. High-sensitivitytroponin was 14. Because of the tachycardia patient was given IV fluids. Sinceher work-up is ultimately normal. Her admitted and speak to the hospitalist. Impression: 1. History of opioid abuse 2. Presentation for opioid detox 3. Tachycardia?resolved Lab Data Attestation: I reviewed the patient's lab results. Labs: Laboratory Results - last 24 hr 03/11/23 19:30 WBC 11.0 RBC 5.53 H Hgb 15.9 H Hct 47.5 H MCV 85.9 MCH 28.8 MCHC 33.5 RDW Std Deviation 42.3 RDW Coeff of Terrence 13.4 Plt Count 188 MPV 11.2 Immature Gran % (Auto) 0.300 Neut % (Auto) 66.9 Lymph % (Auto) 26.5 [place] % (Auto) 5.7 Eos % (Auto) 0.5 Baso % (Auto) 0.1 Absolute Neuts (auto) 7.3 Absolute Lymphs (auto) 2.90 Nucleated RBC % 0 Sodium 139 Potassium 3.7 Chloride 108 H Carbon Dioxide 25.0 Anion Gap 6 BUN 12 Creatinine 0.91 Estim Creat Clear Calc 73.85 Est GFR (MDRD) Af Amer 86 Est GFR (MDRD) Non-Af 71 BUN/Creatinine Ratio 13.2 Glucose 110 H Calcium 9.1 Total Bilirubin 0.50 AST 11 L ALT 21 Alkaline Phosphatase 71 Troponin I High Sens 14 Total Protein 8.4 H Albumin 3.8 Globulin 4.6 H Albumin/Globulin Ratio 0.8 L Urine Test Negative Urine Opiates Screen NEGATIVE Urine Methadone Screen NEGATIVE Ur Barbiturates Screen NEGATIVE Ur Phencyclidine Scrn NEGATIVE Ur Amphetamines Screen NEGATIVE MDMA (Ecstasy) Screen POSITIVE H U Benzodiazepines Scrn NEGATIVE Urine Cocaine Screen NEGATIVE U Cannabinoids Screen POSITIVE H Ur Drug Screen Comment Ethyl Alcohol < 3.0 Discharge Plan Triage Chief Complaint: Substance Abuse ED Provider: Lance Martin Dx/Rx/DC Orders Primary Care Provider: Care Physician,No Primary Referrals: Care Physician,No Primary [Primary Care Provider] - What to do if you have Problems For any increased pain, shortness of breath, bleeding, nausea or vomiting, chestpain, or any unexpected problems, contact your Primary Care Provider. Call [facility] ([phone]) or report to the closest Emergency Room. Call 911 if necessary. 03/11/232150 <Electronically signed by Lance Martin DO> Cosigner Signature (if applicable): CC: No Primary Care Physician ~ Signed [facility] Work Phone: [phone]) 947-879010-31-2022 Hospital Discharge instructions* Discharge Instructions* Bhavin Mandujano DO - 02/08/2022 8:56 AM EDT Avoid drugs causing nausea and GI side effects [facility] [employer] [facility]: [facility]* Diagnosis Sprain of anterior talofibular ligament of right ankle, initial encounter- Primary documented in this encounter [employer] Phone: evaluation note* Diagnosis Left facial swelling- Primary Swelling, mass, or lump in head and neck Pain, dental Unspecified disorder of the teeth and supporting structures documented in this encounter [facility] [employer] Phone: evaluation note* Diagnosis Other fatigue- Primary Nausea and vomiting, unspecified vomiting type documented in this encounter [facility] [employer] Phone: evaluation noteNo assessment information available [facility] Work Phone: Evaluation note* Diagnosis Onset Date Resolution Status Opiate withdrawal acute [facility] Work Phone: Evaluation note* Diagnosis Urinary frequency- Primary Cystitis with hematuria Cystitis, unspecified [facility] Viral illness- Primary Unspecified viral infection, in conditions classified elsewhere and of unspecified site Nausea Nausea alone [facility] Diagnosis Dental abscess- Primary Periapical abscess without sinus [facility] Diagnosis Viral illness- Primary Unspecified viral infection, in conditions classified elsewhere and of unspecified site Diarrhea, unspecified type [facility]* Instructions* Kathryn Carter MD - 09/05/2020 Ice as needed, Motrin / Tylenol as needed * Attachments The following attachments cannot be sent through Care Everywhere. * Ankle Sprain ([place]) * RICE: [facility]* Attachments The following attachments cannot be sent through Care Everywhere. * Tooth and Gum Pain ([place]) [facility] Instructions* Attachments The following attachments cannot be sent through Care Everywhere. * Tooth: Abscessed ([place]) [facility] (n[facility])* Consultation (Routine) - New Request Specialty Diagnoses / Procedures Referred By Remy escalera Referred To Contact Family Medicine Diagnoses Cystitis with hematuria Laxmi Vang, MIGUE [address] [place] [address] Tk Rodríguez APRN-CONTINUITY EDITOR [address] [place] [address] Referral ID Status Reason Start Date Expiration Date V isits Requested Visits Authorized [id number] New Request 12/08/2023 01/01/2025 1 1 [facility] Discharge Instructions * Attachments The following attachments cannot be sent through Care Everywhere. 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 OPIOD DETOX OPIATE WITHDRAWAL. OPIATE WITHDRAWAL. OPIATE WITHDRAWAL. Reason for Visit Opiate withdrawal Additional Source Comments Reason for Visit (unrecogniz ed section and content) Reason Comments Vaginitis patient states that symptoms started 2 weeks ago Reason Comments Ankle Pain left ankle pain from falling yesterday Reason Comments Dental Pain States she has been having dental pain, thinks she might have an infection due to her her bas teeth, this has been ongoing for 2 weeks. Reason Comments Fatigue Patient reports incr eased fatigue with exertion and nausea starting last night. Patient reports this has been going on for a month but that it has gotten worse in the last day. Reason Comments Urinary Pain Started yesterday, l ower abdomen pain, sharp shooting pain, burning, hurts at the end of the stream. Reason Comments Nausea Headache Pt is presenting tod ay with N&V, headache, and body aches. Pt expresses pain behind her eyes. Symptoms x 3 days Vomiting Generalized Body Aches Reason Comments Dental Pain Started today Reason Comments Generalized Body Aches Body aches, abdom inal pain, diarrhea, fatigue, and vomiting starting x3days ago. Ordered Prescriptions (unrec ognized section and content) Prescription Sig Dispensed Refills Start Date End Da te ibuprofen (ADVIL;MOTRIN) 800 MG tablet Take 1 tablet by mouth every 8 hours as needed for Pain 30 tablet 1 09/05/2020 Prescription Sig Dispensed Refills Start Date End Da te ibuprofen (ADVIL;MOTRIN) 800 MG tablet Take 1 tablet by mouth every 8 hours as needed for Pain 30 tablet 1 02/04/2021 amoxicillin-clavulanate (AUGMENTIN) 875-125 MG per tablet Take 1 tablet by mouth 2 times daily for 10 days 20 tablet 0 02/04/2021 02/14/2021 Prescription Sig Dispensed Refills Start Date End Da te cloNIDine (CATAPRES) 0.1 MG tablet Take 1 tablet by mouth 2 times daily 60 tablet 3 02/08/2022 Scheduled Active and Recently Administ ered Medications (unrecognized section and content) Medication Order 02/02/2021 02/03/2021 02/04/2021 benzocaine (ORAJEL) 20 % mucosal gel (COMPLETED) Mouth/Throat, ONCE, On Tue02/04/21 at 1245, For 1 dose, Dental prep, do not substitute 1306 (Given - Provid er: Katharina Vidal RN) lidocaine viscous hcl (XYLOCAINE) 2 % solution 15 mL (COMPLETED) 15 mL, Mouth/Throat, ONCE, On Tue02/04/21 at 1245, For 1 dose, Dental prep 1306 (Given - Provid er: Katharina Vidal RN) Scheduled Medication Order 02/06/2022 02/07/2022 02/08/2022 ondansetron (ZOFRAN-ODT) disintegrating tablet 4 mg (COMPLETED) 4 mg, Oral, ONCE, 1 dose, On Tue02/08/22 at 0900 0900 (Given - Provid er: Mara Murray RN) Care Teams (unrecognized sec tion and content) Subeditor Relationship Specialty Start Date End Date Kathryn Butts MD PCP - General Family Medicine 10/27/19 Team Status: Active Member Role Status Dates No Primary Care Physician Primary Care Provider Active Team Status: Active Member Role Status Dates Dr. Lance Martin DO Emergency Provider Active No Primary Care Physician Primary Care Provider Active Dr. Patricio Mckenzie DO Admit Provider, Attending Provid er Active Team Status: Active Member Role Status Dates Dr. Lance Martin DO Emergency Provider Active No Primary Care Physician Primary Care Provider Active Dr. Patricio Mckenzie DO Admit Provider, At tending Provider, Other Provider Active Team Status: Active Member Role Status Dates Dr. Lance Martin DO Emergency Provider Active No Primary Care Physician Primary Care Provider Active Dr. Patricio Mckenzie DO Admit Provider, Other Provider A ctive Dr. Dayami Perez MD Attending Provider, Other Provid er Active Team Status: Active Member Role Status Dates Dr. Lance Martin DO Emergency Provider Active No Primary Care Physician Primary Care Provider Active Dr. Patricio Mckenzie DO Admit Provider, Other Provider A ctive Dr. Adriel Moore MD Attending Provider, Other Provid er Active Dr. Dayami Perez MD Other Provider Active Team Status: Inactive Member Role Status Dates Dr. Lance Martin DO Emergency Provider Active No Primary Care Physician Primary Care Provider Active Dr. Patricio Mckenzie DO Admit Provider, Other Provider A ctive Dr. Adriel Moore MD Attending Provider Active Dr. Dayami Perez MD Other Provider Active INFORMATION SOURCE (unrecogn ized section and content) DATE CREATED AUTHOR 02/12/2022 [facility] DATE CREATED AUTHOR AUTHOR'S ORGANIZ ATION 03/30/2023 [facility] DATE CREATED AUTHOR AUTHOR'S ORGANIZ ATION 08/27/2023 [facility] DATE CREATED AUTHOR AUTHOR'S ORGANIZ ATION 01/12/[address] [facility] DATE CREATED AUTHOR AUTHOR'S ORGANIZ ATION 06/04/2024 [facility] DATE CREATED AUTHOR AUTHOR'S ORGANIZ ATION 06/30/2024 [facility] Goals (unrecognized section and content) Goals may be documented in a n alternate section FOR RECORDS PERTAINING TO PATIENTS WHO ARE OR HAVE BEEN ENROLLED IN A CHEMICAL DEPENDENCY/SUBSTANCEABUSE PROGRAM, SOME INFORMATION MAY BE OMITTED. This clinical summary was aggregated from multiple sources. Caution should be exercised in using it in the provision of clinical care. This summary normalizes information from multiple sources, and as a consequence, information in this document may materially change the coding, format and clinical context of patient data. In addition, data may be omitted in some cases. CLINICAL DECISIONS SHOULD BE BASED ON THE PRIMARY CLINICAL RECORDS. [facility]. provides no warranty or guarantee of the accuracy or completeness of information in this document.
[2025-04-01 22:15] LABS: Ferritin 5 ng/mL (22-378); Iron 14 ug/dL (50-170); Iron Binding Capacity,Total 448 ug/dL (250-450); Iron Binding Capacity,Unsat 434 ug/dL (228-428)
[2025-04-01 22:32] LABS: HIV Nonreactive (Nonreactive); Hepatitis B Surface Antigen Nonreactive (Nonreactive); Hepatitis C Antibody REAC (Nonreactive); Syphilis Antibodies Nonreactive (Nonreactive)
[2025-04-02 04:12] VITALS: BP 135/79; PULSE 62; RESP 16; TEMP 36.7; O2SAT 99
[2025-04-02 08:00] VITALS: BP 131/79; PULSE 62; RESP 16; TEMP 36.8; O2SAT 98
[2025-04-02] MEDS: Nicotine (PBKC) 21 MG Patch TD (08:40)
[2025-04-02] MEDS: Ensure Plus High Protein 120 ML LIQUID PO ×4 (08:44→21:11)
--- NOTE | 2025-04-02 11:19 | ADDICTION ---
Met with patient to complete RAMP assessments and discussed addictive behaviors, relapse justifications, the distinction between recovery and sobriety, and the changes associated with recovery. Patient reported intention to follow up with PILO Prasad in [place]. Patient was alert and oriented ?4, mood appeared stable with congruent affect, speech was clear and coherent, thought process was logical and goal-directed with no evidence of delusions or hallucinations, and insight and judgment appeared fair. No acute distress noted.
[2025-04-02 12:00] VITALS: BP 136/79; PULSE 62; RESP 16; TEMP 36.8; O2SAT 98
--- NOTE | 2025-04-02 14:15 | CASEMGMT ---
Addendum entered by Tahmina Timmons 04/02/25 15:38: GAGAN provided resources for [facility] medical assistance/free clinics/mental health resources. GAGAN provided advanced directives planning booklet. AGGAN remains available to follow. MARGO Russo Original Note: Social Work- Kaila, [employer] rep, met with pt and submitted MARTHA application. MARGO Russo
--- NOTE | 2025-04-02 17:29 | PCM.PN.HOSP ---
Reason for Visit Chief Complaint: Acute opiate withdrawal, requesting detox. Subjective Subjective Patient was seen and examined today, she does not complain of any anxiety or muscle pain at this time, I briefly talked with addiction social sciences chair about her care, it appears her intentions are to follow-up as an outpatient rather than to go to an inpatient detox program at the time of discharge from the hospital. Objective Data Objective Data Vital Signs: Vital Signs Temp Pulse Resp BP Pulse Ox O2 Del Method 98.2 F 62 16 136/79 H 98 Room Air 04/02/25 12:00 04/02/25 12:00 04/02/25 12:00 04/02/25 12:00 04/02/25 12:00 04/02/25 12:00 Oxygen Delivery Method Room Air Weight: 87.1 kg Body Mass Index (BMI) 30.9 Intake & Output: Intake and Output for Last 24 Hours 03/31/25 04/01/25 04/02/25 23:59 23:59 23:59 Intake Total 500 / 500 Balance 500 / 500 Lab / Micro Data 04/01/25 16:30 04/01/25 16:30 Labs: Laboratory Results - last 24 hr 04/01/25 16:30: Hemoglobin A1c 5.9 H, Iron 14 L, TIBC 448, Iron Saturation 3.1 L, Unsaturated IBC 434 H, Ferritin 5 L, Urine Opiates Screen NEGATIVE, U Buprenorphine Qual NEGATIVE, Ur Oxycodone Screen NEGATIVE, Urine Methadone Screen NEGATIVE, Urine Fentanyl Screen PRESUMPTIVE POSITIVE, Ur Barbiturates Screen NEGATIVE, Ur Phencyclidine Scrn NEGATIVE, Ur Amphetamines Screen NEGATIVE, U Benzodiazepines Scrn NEGATIVE, Urine Cocaine Screen PRESUMPTIVE POSITIVE, U Cannabinoids Screen PRESUMPTIVE POSITIVE, Syphilis Total Ab Nonreactive, Hep Bs Antigen Nonreactive, Hep Bs Antibody REAC, Hepatitis C Antibody REAC, HIV 1&2 Antibody Nonreactive Micro: Microbiology 04/02/25 09:20 Stool Stool Occult Blood (ATTILA) - Final Physical Exam Const alert, oriented x3 and no apparent distress General Appearance: cooperative, well kempt and well developed Orientation / Consciousness: awake, oriented to person, oriented to place and oriented to time HEENT normocephalic, head/scalp atraumatic and moist oral mucous membranes Eyes PERRL, EOMs intact bilaterally and conjunctivae normal Neck supple, no JVD, thyroid normal and no carotid bruits General: trachea midline Resp normal respiratory effort, no retractions, no use of accessory muscles and clear to auscultation bilaterally Auscultation: Negative for rales, rhonchi or wheezes Cardio regular rate, regular rhythm, S1 normal heart sound, S2 normal heart sound, no murmurs, no rub and no gallops GI normal to inspection, nondistended, normoactive bowel sounds, soft to palpation, non-tender and non-distended Extremity no clubbing, cyanosis or edema Skin no rashes or lesions noted General Skin Exam: no breakdown Neuro oriented x3, CN's II-XII intact bilaterally, no focal motor deficits and no sensory deficits noted Sensorium / Orientation: awake and alert Speech: speech normal Psych affect normal Assessment & Plan Assessment/Plan (1) Opiate withdrawal: PLAN: Plan 1. Acute opiate withdrawal-patient will continue on her Subutex taper, she will be seen again by addiction social sciences chair #2 polysubstance abuse-complicates care, management, recovery, and prognosis #3 history of bipolar disorder-patient is on no medication at the present time, she will need follow-up as an outpatient with her physician #4 iron deficiency anemia-etiology of this is unknown at this time, patient still has menses, examining the lab work it appears to this anemia is chronic, I have contacted gastroenterology and they will perform an EGD tomorrow to rule out gastritis, esophagitis, ulcer or malignancy. #5 history of diabetes-patient's blood sugars do not seem to be elevated however, she is on no medication at this time Total clinical time spent by myself addressing the patient's medical issues, reviewing all of her data, and collaborating with the patient's care team: 35 minutes Charges/Coding Visit Charges Inpatient E&M: 83430 Subs Hosp L2
[2025-04-02 18:00] VITALS: BP 136/79; PULSE 64; RESP 16; TEMP 36.7; O2SAT 98
[2025-04-02] MEDS: Sodium Ferric Gluconat/Sucrose 250 MG in 0.9% Normal Saline (250mL Bag) 250 ML 135 MG IV (18:56)
--- NOTE | 2025-04-02 19:30 | CON.PCM.GI_ITS ---
HPI Consult Data Date of Consult: 04/02/25 HPI Narrative HPI Narrative: AL TRONCOSO, is a 44-year-old female with a past medical history of chronic Hepatitis C and alcohol use disorder presents for evaluation of significant iron deficiency anemia. The patient reports fatigue, shortness of breath on exertion, and occasional dizziness over the past few weeks, which she attributes to her anemia. She denies any history of gastrointestinal bleeding, dark/tarry stools , or bright red blood per rectum. She reports heavy menstrual periods recently. She confirms current alcohol consumption but states she has reduced her intake recently. She denies any use of NSAIDs or other xdrg-dkx-ryyriex medications that might cause gastric irritation or bleeding. * Laboratory Data (Current): * Hemoglobin (Hgb): 7.2 g/dL (Low) * Hematocrit (Hct): 23% (Low) * MCV: 68 fL (Low, microcytic) * Ferritin: 5 ng/mL (Very low, consistent with ASHKAN) * Iron saturation: 8% (Low) * TSAT: 8% (Low) * TIBC: 450 mcg/dL (High) * AST/ALT: Mildly elevated, consistent with her history of Hepatitis C. [facility] Medical History Tobacco use Sciatica Substance abuse Bipolar disorder Anxiety Depression Hepatitis Smoker Congestive heart failure (CHF) Migraines Diabetes mellitus, type 2 Home Medications ?Medication ?Instructions ?Recorded ?Last Taken ?Type acetaminophen 325 mg tablet 650 mg PO Q6H PRN pain Unknown History (Tylenol) ibuprofen 200 mg tablet (Advil) 400 mg PO Q6H PRN pain 04/01/25 Unknown History Allergy/AdvReac Type Severity Reaction Status Date / Time No Known Allergies Allergy Verified 04/01/25 15:39 Family History Mother Diabetes Father Diabetes Heart disease Surgical History S/P tubal ligation History of cholecystectomy Social History household members: children Smoking Status: Current every day smoker tobacco type: cigarettes Smoking packs per day: 0.75 Smoking cigarettes per day: 15.0 alcohol intake: former substance use type: marijuana, crack/cocaine and heroin ROS Constitutional Constitutional: Denies fatigue, fever(s), poor appetite, weight gain or weight loss Gastrointestinal Gastrointestinal: Denies belching, bloating, change in bowel habits, change in stool character, chewing difficulty, coffee ground emesis, constipation, cramping, diarrhea, dyspepsia, dysphagia, early satiety, excessive flatus, fecal incontinence, heartburn, hematemesis, hematochezia, hemorrhoids, loose stools, melena, nausea, odynophagia, rectal bleeding, tenesmus, vomiting or weight changes Physical Exam Const alert, oriented x3, no apparent distress and healthy appearing General Appearance: cooperative GI normal to inspection, nondistended, normoactive bowel sounds, soft to palpation, non-tender and non-distended Percussion: normal to percussion Rectal Exam: deferred Lab / Micro Data 04/01/25 16:30 04/01/25 16:30 Labs: Laboratory Results - last 24 hr 04/01/25 16:30: Hemoglobin A1c 5.9 H, Iron 14 L, TIBC 448, Iron Saturation 3.1 L , Unsaturated IBC 434 H, Ferritin 5 L, Syphilis Total Ab Nonreactive, Hep Bs Antigen Nonreactive, Hep Bs Antibody REAC, Hepatitis C Antibody REAC, HIV 1&2 Antibody Nonreactive Micro: Microbiology 04/02/25 09:20 Stool Stool Occult Blood (ATTILA) - Final Assessment & Plan Assessment/Plan (1) Anemia: (2) Hepatitis C: PLAN: The patient is a 44-year-old female with a history of chronic Hepatitis C and alcohol use presenting with significant, symptomatic, microcytic iron deficiency anemia (Hgb 7.2 g/dL, Ferritin 5 ng/mL). * Differential Diagnosis for Anemia:?The pattern of low ferritin, low TSAT, and high TIBC is highly specific for iron deficiency anemia. Given her age and gender, the likely causes are heavy menstrual bleeding and potential gastrointestinal blood loss. Her history of alcohol use and Hepatitis C increases the risk of GI lesions (e.g., varices, gastritis, ulcers) which could cause chronic blood loss. * Complicating Factors:?The patient's history of alcohol use may exacerbate GI bleeding risk and impact overall nutritional status. Hepatitis C is noted but unlikely to be the primary cause of this severe ASHKAN, which is a nutritional or blood loss issue. Plan * Diagnostics: * Send?fecal occult blood testing?(FOBT) to screen for ongoing GI blood loss. * ?Endoscopy and/ possible inpatient colonoscopy?to rule out a GI source of bleeding, which is a priority given her age and severity of anemia, despite negative subjective history for bleeding. * Consult with her Patch Setter for further workup of heavy menstrual bleeding (menorrhagia). * Therapeutics: * Start?oral iron supplementation?(e.g., Ferrous Sulfate 325 mg three times daily) to replete iron stores. Advised on potential side effects like constipation or dark stools, and strategies to manage these. * Due to the severity of anemia (Hgb < 8.0 g/dL) and symptoms, a discussion will be held regarding the risks/benefits of?packed red blood cell transfusion?if she remains symptomatic or her Hgb drops further. Portions of this note were generated using voice recognition software ([employer]). I have reviewed the contents and every effort has been made to ensure accuracy; however, inadvertent errors in grammar, spelling, punctuation, or word choice may occur, that were not noted before signing the document and should not alter the intended clinical meaning. Charges/Coding Visit Charges Inpatient E&M: 47161 Init Hosp L3
[2025-04-02 21:08] VITALS: BP 162/90; PULSE 74; RESP 16; TEMP 36.7; O2SAT 100
[2025-04-02] MEDS: hydrOXYzine PAM 25 MG Capsule 50 MG PO (21:11)
[2025-04-02] MEDS: 0.9% Saline Lock 10 ML Syringe IV (21:14)
[2025-04-02 23:41] VITALS: BP 145/107; PULSE 66; RESP 20; TEMP 36.7; O2SAT 100
[2025-04-03] VITALS (12 sets, daily range): BP systolic 118–150; BP diastolic 62–107; PULSE 60–81; RESP 16–18; TEMP 36.3–36.8; O2SAT 95–100; BMI 30.8
--- NOTE | 2025-04-03 02:01 | EKG12_ITS ---
Test Reason : PRE-OP Blood Pressure : */* mmHG Vent. Rate : 59 BPM Atrial Rate : 59 BPM P-R Int : 154 ms QRS Dur : 78 ms QT Int : 422 ms P-R-T Axes : 52 -5 23 degrees QTcB Int : 417 ms Sinus bradycardia Otherwise normal ECG When compared with ECG of 11-Mar-2023 19:30, No significant change was found Confirmed by Juancarlos Marie ([id number]), manager editorial TEQUILA AZEVEDO ([id number]) on 04/05/2025 1:02:15 PM Referred By: Confirmed By: Juancarlos Marie
[2025-04-03 04:23] LABS: Hematocrit 31.2 % (37-47); Hemoglobin 8.8 g/dL (12.0-15.0); Immature Granulocytes Count 0.020 X10^3/uL (0.0-0.0); Mean Corp Hgb Conc 28.2 g/dL (32-36); Mean Corpuscular Volume 62.5 fL (81-99); NRBC Flagged by Analyzer 0 % (0-5); Platelet Count 230 K/mm3 (150-450); RBC Distribution Width CV 18.1 % (11.6-14.6); RBC Distribution Width SD 38.6 fl (35.1-43.9); Red Blood Count 4.99 M/mm3 (4.2-5.4); White Blood Count 8.1 K/mm3 (4.4-11.0)
[2025-04-03] MEDS: hydrOXYzine PAM 25 MG Capsule 50 MG PO (06:02)
[2025-04-03 06:11] LABS: AST(SGOT) 18 U/L (<=31); Alanine Aminotransfer ALT/SGPT 13 U/L (<=34); Albumin, Serum 3.9 g/dL (3.5-5.0); Alkaline Phosphatase 67 U/L (35-104); Bilirubin, Direct 0.10 mg/dL (0.00-0.30); Globulin 3.0 g/dL (2.2-4.2)
[2025-04-03 06:15] LABS: Anion Gap 12 (7-18); BUN 14 mg/dL (4-19); BUN/Creat Ratio 24.1 RATIO (10-20); Calcium,Total 8.9 mg/dL (7.6-11.0); Carbon Dioxide 20.4 mmol/L (20.0-29.0); Chloride 111 mmol/L (96-106); Estimated Creatinine Clearance 134.74 ml/min (50-250); Glucose 115 mg/dL (70-99); Potassium 3.7 mmol/L (3.5-5.1)
[2025-04-03] MEDS: Lactated Ringers 1,000 ML 15 ML IV (09:36)
--- NOTE | 2025-04-03 10:16 | PCM.PRE.AN2 ---
ASA Classification* ASA Classification ASA Classification: 2 Assessment & Plan Anesthesia* Anesthesia Assessment Anesthesia Assessment: Discussed sedation and/or anesthesia options, risks, benefits, and alternatives with patient/parents/legal guardian/POA. Questions invited. The patient/parents/legal guardian/POA seems to understand and agrees to proceed with anesthesia plan. Reviewed the physical assessment, medical history, allergy history and patient home medications list prior to surgery/procedure/anesthetic and documented any changes. Performed airway and anesthesia risk assessments. Anesthesia Type Anesthesia Type: MAC Anesthesia Focused Assessment* Temperature: 98.2 F Pulse Rate: 62 Blood Pressure: 131/62 Respiratory Rate: 16 Pulse Ox: 97 Airway Assessment Mouth opens: >3 cm Mallampati Score: II Labs Anesthesia Preop lab: CBC WBC, (4.4-11.0) 8.1 K/mm3 Today, 03:18 RBC, (4.2-5.4) 4.99 M/mm3 Today, 03:18 Hgb, (12.0-15.0) 8.8 g/dL L Today, 03:18 Hct, (37-47) 31.2 % L Today, 03:18 Plt Count, (150-450) 230 K/mm3 Today, 03:18 CHEMISTRY Potassium, (3.5-5.1) 3.7 mmol/L Today, 03:18 Sodium, (135-145) 143 mmol/L Today, 03:18 BUN, (4-19) 14 mg/dL Today, 03:18 Creatinine, (0.70-1.20) 0.58 mg/dL L Today, 03:18 Glucose, (70-99) 115 mg/dL H Today, 03:18 COAG Urine Test Negative Negative 03/11/23, 19:30 Pre-Assessment Diagnosis/Proposed Procedure Planned Operative Procedure(s): EGD Anesthesia History 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 When Was Last Pacemaker Check QUESTION #4 FULL TEXT: You/Your Family Experience fever (hyperthermia) with Anesthesia Last Oral Intake Last Oral intake: Last Oral Intake NPO since 00:00 04/03/25 08:24 Meds taken in AM with sips of water? Meds patient instructed to buprenorphine hcl 04/03/25 08:24 take am of surgery PONV PONV - exhaust emissions inspector: PONV - exhaust emissions inspector Female HX of Motion Sickness HX of N/V After Surgery Non-Smoker Duration of Surgery greater than 60 minutes Number of Risk Factors PONV Score Height & Weight Height & Weight: Anesthesia: Height & Weight Height 5 ft 6.14 in 04/03/25 08:24 Weight: 87.1 kg 04/03/25 08:24 Body Mass Index (BMI) 30.8 04/03/25 08:24 Respiratory Assessment Respiratory Assessment - exhaust emissions inspector: Respiratory Tract Infection Hx - exhaust emissions inspector Hx Respiratory Tract Infection No 04/03/25 08:24 STOP Sleep Apnea STOP Sleep Apnea - exhaust emissions inspector: STOP Sleep Apnea - exhaust emissions inspector Hx Hypertension No 04/01/25 19:48 Hx Sleep Apnea No 04/01/25 19:48 CPAP BIPAP Do you snore loudly (louder Yes 04/01/25 19:48 than talking or can be heard Do you often feel tired/ No 04/01/25 19:48 fatigued/ sleepy during daytime? Has anyone observed you stop No 04/01/25 19:48 breathing during sleep? STOP Results Negative 04/01/25 19:48 QUESTION #5 FULL TEXT : Do you snore loudly (louder than talking or can be heard through closed doors)? 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 Specify any problems Hx of Preganancy in last 3 No 04/01/25 19:48 Months Nurse Filling Out Transfusion EVIZZO 04/01/25 19:48 & Questions: Date: 04/01/25 04/01/25 19:48 Time: 20:15 04/01/25 19:48 Patient unable to answer at this time (ie. confused, unrespo /Reproduction History /Reproductive History - exhaust emissions inspector: /Reproductive Hx- exhaust emissions inspector Hx Now No 04/03/25 08:24 Gestational Age (in weeks): EDC: Hx Hx Para Hx Section SAB No 04/03/25 08:24 Does the father of the baby or his family experience fever w Father of the baby Malignant Hypertension history comment Active Medications Active Medications: Current Medications Generic Name Dose Route Start Last Admin Trade Name Freq PRN Reason Stop Dose Admin Acetaminophen 650 mg 04/01/25 20:04 Acetaminophen 325 Mg Tablet PO Q4H PRN PRN Fever, pain 1-10 Al Hydrox/Mg Hydrox/Simethicone 30 ml 04/02/25 10:00 Mag /Aluminum/Simeth Wch Udc 30 Ml Oral.Susp PO Q6H PRN PRN dyspesia Albuterol Sulfate 2.5 mg 04/01/25 20:04 Albuterol 2.5 Mg/3 Ml Vial.Neb. INHALATION Q2H PRN PRN Dyspnea, wheezing Bisacodyl 10 mg 04/01/25 20:04 Bisacodyl 10 Mg Suppository RC DAILY PRN Constipation Buprenorphine HCl 4 mg 04/02/25 16:15 04/03/25 08:20 Buprenorphine Hcl 2 Mg Tab.Subl SL 04/05/25 16:14 4 mg Q8H COOKIE Administration Taper Clonidine 0.1 mg 04/01/25 20:04 04/03/25 06:02 Clonidine Hcl 0.1 Mg Tablet PO 0.1 mg Q8H PRN PRN Administration RESTLESSNESS Dicyclomine HCl 20 mg 04/01/25 20:04 Dicyclomine 10 Mg Capsule PO Q6H PRN PRN Abdominal Discomfort Gabapentin 300 mg 04/01/25 20:04 04/02/25 23:42 Gabapentin 300 Mg Capsule PO 300 mg Q8H PRN PRN Administration moderate to severe anxiety Hydralazine HCl 10 mg 04/01/25 20:04 Hydralazine 20 Mg/Ml Vial IV Q4H PRN PRN SBP > 160 Protocol Hydroxyzine Pamoate 50 mg 04/01/25 20:04 04/03/25 06:02 Hydroxyzine Gaye 25 Mg Capsule PO 50 mg Q6H PRN PRN Administration mild anxiety Sodium Chloride 250 mls @ 15 mls/hr 04/01/25 20:06 IV .[id number] PRN Saline Flush Sodium Chloride 250 mls @ 15 mls/hr 04/01/25 20:06 IV .[id number] PRN Additional IVPB Infusion Lactated Ringer's 1,000 mls @ 15 mls/hr 04/03/25 09:30 04/03/25 09:36 IV 15 mls/hr .Q48H COOKIE Administration Ibuprofen 600 mg 04/01/25 20:04 Ibuprofen 600 Mg Tablet PO Q8H PRN PRN Pain Score 1-10 Loperamide HCl 2 mg 04/01/25 20:04 Loperamide 2 Mg Capsule PO Q4H PRN PRN Loose Stools Methocarbamol 750 mg 04/01/25 20:04 04/03/25 06:02 Methocarbamol 750 Mg Tablet PO 750 mg Q6H PRN PRN Administration MUSCLE SPASM Nicotine 21 mg 04/02/25 10:00 04/02/25 08:40 Nicotine (Pbkc) 21 Mg Patch TD 21 mg DAILY COOKIE Administration Nutritional Formula (Lactose Free) 120 ml 04/01/25 22:00 04/02/25 21:11 Ensure Plus High Protein 120 Ml Liquid PO 120 ml 4X/DAY COOKIE Administration Ondansetron HCl 8 mg 04/01/25 20:04 Ondansetron 8 Mg Tablet PO Q8H PRN PRN NAUSEA Pantoprazole Sodium 40 mg 04/02/25 22:00 04/02/25 21:12 Pantoprazole Sodium 40 Mg Tablet PO 40 mg BID COOKIE Administration Senna 2 tablet 04/01/25 20:04 Senna Tablet PO QHS PRN Constipation Sodium Chloride 10 - 40 ml 04/01/25 20:06 04/02/25 21:14 0.9% Saline Lock 10 Ml Syringe IV 10 ml UD PRN Administration SALINE FLUSH Trazodone HCl 100 mg 04/01/25 20:04 04/02/25 21:10 Trazodone 100 Mg Tablet PO 100 mg QHS PRN PRN Administration INSOMNIA PFSH Medical History Tobacco use Sciatica Substance abuse Bipolar disorder Anxiety Depression Hepatitis Smoker Congestive heart failure (CHF) Migraines Diabetes mellitus, type 2 Home Medications ?Medication ?Instructions ?Recorded ?Last Taken ?Type acetaminophen 325 mg tablet 650 mg PO Q6H PRN pain 04/01/25 Unknown History (Tylenol) ibuprofen 200 mg tablet (Advil) 400 mg PO Q6H PRN pain 04/01/25 Unknown History Allergy/AdvReac Type Severity Reaction Status Date / Time No Known Allergies Allergy Verified 04/01/25 15:39 Family History Mother Diabetes Father Diabetes Heart disease Surgical History S/P tubal ligation History of cholecystectomy Social History household members: children Smoking Status: Current every day smoker tobacco type: cigarettes Smoking packs per day: 0.75 Smoking cigarettes per day: 15.0 alcohol intake: former substance use type: marijuana, crack/cocaine and heroin Review of Systems (Anesthesia) ROS Narrative System reviewed and no additional complaints, except as documented.
--- NOTE | 2025-04-03 11:15 | EGD_PTH ---
PATIENT: AL TRONCOSO LOC: MS3 U#:[id number] AGE/SX: 44/F ROOM: RI313 RE04/01/[address]: Dr. Patricio Mckenzie DO : 1980 BED: 1 DIS: 04/04/2025 SPEC #: [id number] RECD: 04/05/25 07:20 STATUS: LM DURAND #: [id number] PREMA: 04/03/25 11:[address]: Ferdinand Licea DEPT: SURGICAL PATHOLOGY RECD BY: Logan Matthews ENTERED: 04/05/25 10:32 SP TYPE: EGD BIOPSY OT DR: MD Dr. Patricio eWi DO Dr. Mark Tereletsky, DO Dr. Prakash Chand, MD Heather Evans, DIESEL TECHNOLOGY INSTRUCTOR-C Magnolia Pink DIESEL TECHNOLOGY INSTRUCTOR-C Betsey Ferguson NP, DIESEL TECHNOLOGY INSTRUCTOR-C ANGELA Mccain Tissues: A - Duodenum, NOS Procedures: Surgery Specimen Level IV HEADER OPERATION: EGD with biopsy PRE-OP DIAGNOSIS: Anemia TISSUE SUBMITTED: A- Duodenum biopsy MICROSCOPIC DIAGNOSIS A. Small intestine, duodenum, biopsy: - Normal villous morphology with Nathaly gland hyperplasia. - Negative for increased intraepithelial lymphocytes. MICROSCOPIC DESCRIPTION Slides are reviewed. GROSS DESCRIPTION A. Received in fixative is one container labeled with the patient's name and designated Duodenum biopsy. The specimen consists of two irregular fragments of barba tissue that measure 0.8 x 0.5 x 0.2 cm. The specimen is totally submitted in one cassette. 04/05/2025 CPT:21740
[2025-04-03] MEDS: Lactated Ringers 500 ML IV (11:51)
--- NOTE | 2025-04-03 12:11 | OP.PROVAT_ITS ---
04/03/2025 Betsey Ferguson Weather Stripper, Weather Stripper-c Re : Upper GI endoscopy procedure for Neetu Segundo Dear Phyllis This procedure was performed on Thursday, April 03, 2025. My impressions and recommendations are as follows: Impressions : - Normal esophagus. - No gross lesions in the entire stomach. - Chronic duodenitis. Biopsied. Recommendations : - Resume regular diet. - Continue present medications. - Await pathology results. - Colonoscopy for iron deficiency anemia and for screening purposes My findings are described in the full procedure note, which is enclosed. If I can be of further assistance, please feel free to contact me at . Sincerely, Ferdinand Licea, 04/03/2025 12:10:55 PM This report has been signed electronically.
--- NOTE | 2025-04-03 12:11 | OP.EGD_ITS ---
Patient Name: Neetu Segundo Procedure Date: 04/03/2025 11:44 AM Date of : 1980 Age: 44 Procedure: Upper GI endoscopy Indications: Iron deficiency anemia Providers: Ferdinand Licea DO Medicines: Monitored Anesthesia Care Patient Profile: This is a 44 year old female. Refer to note in patient chart for documentation of history and physical. Patient has symptoms. Complications: No immediate complications. Procedure: Pre-Anesthesia Assessment: - Prior to the procedure, a History and Physical was performed, and patient medications and allergies were reviewed. The patient is competent. The risks and benefits of the procedure and the sedation options and risks were discussed with the patient. All questions were answered and informed consent was obtained. Patient identification and proposed procedure were verified by the physician in the pre-procedure area. Mental Status Examination: alert and oriented. Airway Examination: normal oropharyngeal airway and neck mobility. Respiratory Examination: clear to auscultation. CV Examination: normal. Prophylactic Antibiotics: The patient does not require prophylactic antibiotics. Prior Anticoagulants: The patient has taken no anticoagulant or antiplatelet agents. ASA Grade Assessment: II - A patient with mild systemic disease. After reviewing the risks and benefits, the patient was deemed in satisfactory condition to undergo the procedure. The anesthesia plan was to use monitored anesthesia care (MAC). Immediately prior to administration of medications, the patient was re-assessed for adequacy to receive sedatives. The heart rate, respiratory rate, oxygen saturations, blood pressure, adequacy of pulmonary ventilation, and response to care were monitored throughout the procedure. The physical status of the patient was re-assessed after the procedure. After obtaining informed consent, the endoscope was passed under direct vision. Throughout the procedure, the patient's blood pressure, pulse, and oxygen saturations were monitored continuously. The gastroscope was introduced through the mouth, and advanced to the fourth part of the duodenum. Small bowel enteroscopy was deemed necessary. The upper GI endoscopy was accomplished without difficulty. The patient tolerated the procedure well. Scope In: 12:00:03 PM Scope Out: 12:03:27 PM Total Procedure Duration Time 0 hours 3 minutes 24 seconds Findings: The examined esophagus was normal. No gross lesions were noted in the entire examined stomach. Patchy mild inflammation characterized by erosions and erythema was found in the first portion of the duodenum and in the second portion of the duodenum. Biopsies were taken with a cold forceps for histology. Verification of patient identification for the specimen was done. Estimated blood loss was minimal. Impression: - Normal esophagus. - No gross lesions in the entire stomach. - Chronic duodenitis. Biopsied. Recommendation: - Resume regular diet. - Continue present medications. - Await pathology results. - Colonoscopy for iron deficiency anemia and for screening purposes Procedure Code(s): --- Professional --- 02396, Small intestinal endoscopy, enteroscopy beyond second portion of duodenum, not including ileum; with biopsy, single or multiple CPT copyright 2021 [employer]. All rights reserved. The codes documented in this report are preliminary and upon ict project manager review may be revised to meet current compliance requirements. Ferdinand Licea DO 04/03/2025 12:10:55 PM This report has been signed electronically. Number of Addenda: 0 Note Initiated On: 04/03/2025 11:44 AM
--- NOTE | 2025-04-03 12:11 | PCM.PN.BLA ---
Progress Note Follow-up in office: [Within 1 month to set up screening colonoscopy and to get treated for hepatitis C, if she does not have the colonoscopy in the hospital. Follow-up procedures needed: Colonoscopy and possible capsule endoscopy Physical Exam Const alert, oriented x3, no apparent distress and healthy appearing General Appearance: cooperative GI normal to inspection, nondistended, normoactive bowel sounds, soft to palpation, non-tender and non-distended Percussion: normal to percussion Rectal Exam: deferred Assessment & Plan Assessment/Plan (1) Hepatitis C: PLAN: I will order hepatitis C PCR , hepatitis C antibody, hepatitis B antibody, HIV as these results will determine her treatment. (2) Anemia: PLAN: Colonoscopy and possible outpatient capsule endoscopy Visit Charges Inpatient E&M: 21965 Subs Hosp L3
--- NOTE | 2025-04-03 12:11 | PCM.POST.ANE ---
Anesthesia: Postop Eval I Current Vital Signs Temperature: 97.3 F Pulse Rate: 77 Blood Pressure: 118/107 Respiratory Rate: 16 Pulse Ox: 98 Oxygen Delivery Method: Room Air Assessment Airway patent: Yes Spontaneous unlabored respirations: Yes Mental status: Awake and Calm nausea: No Vomiting: No Anesthesia Complication: No Fluid Hydration Crystalloid volume administer (ml): 500 Total IV fluid infused: 500 Progress Note Anesthesia document: Postop Eval 1 completed: Yes
[2025-04-03] MEDS: Nicotine (PBKC) 21 MG Patch TD (13:18)
[2025-04-03] MEDS: Ensure Plus High Protein 120 ML LIQUID PO ×3 (13:21→23:24)
--- NOTE | 2025-04-03 13:28 | POSTOPAN2_ITS ---
Anesthesia Postop Eval I Sum Postop Eval Completion status Anesthesia document: Postop Eval 1 completed: Yes Anesthesia Postop Eval I Summary Anesthesia Postop Eval I Summary: Anesthesia Postop Eval I: Assessment Summary Airway patent Yes 04/03/25 12:12 SCREEN TENDER [email or web address] Spontaneous unlabored Yes 04/03/25 12:12 SCREEN TENDER HELPER.[email or web address] respirations Mental status Awake,Calm 04/03/25 12:12 SCREEN TENDER HELPER.[email or web address] nausea No 04/03/25 12:12 SCREEN TENDER HELPER.[email or web address] Vomiting No 04/03/25 12:12 SCREEN TENDER HELPER.[email or web address] Anesthesia Postop Eval I: Fluid Summary Crystalloid volume administer 500 04/03/25 12:12 SCREEN TENDER HELPER.[email or web address] (ml) Colloids volume administered ( ml) Blood Product volume administered (ml) Total IV fluid infused 500 04/03/25 12:12 SCREEN TENDER HELPER.[email or web address] Anesthesia Postop Eval I: Summary Notes Anesthesia Complication No 04/03/25 12:12 SCREEN TENDER HELPER.[email or web address] Anesthesia Complication Comment: Post-operative progress note Anesthesia: Postop Eval II Evaluation Mental status: Awake Pain Level: 0 nausea: No Vomiting: No
--- NOTE | 2025-04-03 13:28 | PCM.POSTANE2 ---
Anesthesia Postop Eval I Sum Postop Eval Completion status Anesthesia document: Postop Eval 1 completed: Yes Anesthesia Postop Eval I Summary Anesthesia Postop Eval I Summary: Anesthesia Postop Eval I: Assessment Summary Airway patent Yes 04/03/25 12:12 NET WEB APPLICATION [email or web address] Spontaneous unlabored Yes 04/03/25 12:12 NET WEB APPLICATION [email or web address].[email or web address] respirations Mental status Awake,Calm 04/03/25 12:12 NET WEB APPLICATION [email or web address].[email or web address] nausea No 04/03/25 12:12 NET WEB APPLICATION [email or web address].[email or web address] Vomiting No 04/03/25 12:12 NET WEB APPLICATION [email or web address] Anesthesia Postop Eval I: Fluid Summary Crystalloid volume administer 500 04/03/25 12:12 NET WEB APPLICATION [email or web address].[email or web address] (ml) Colloids volume administered ( ml) Blood Product volume administered (ml) Total IV fluid infused 500 04/03/25 12:12 NET WEB APPLICATION [email or web address].[email or web address] Anesthesia Postop Eval I: Summary Notes Anesthesia Complication No 04/03/25 12:12 NET WEB APPLICATION [email or web address].[email or web address] Anesthesia Complication Comment: Post-operative progress note Anesthesia: Postop Eval II Evaluation Mental status: Awake Pain Level: 0 nausea: No Vomiting: No
[2025-04-03 14:25] LABS: HIV Nonreactive (Nonreactive)
[2025-04-03] MEDS: Sodium Ferric Gluconat/Sucrose 250 MG in 0.9% Normal Saline (250mL Bag) 250 ML 135 MG IV (14:31)
--- NOTE | 2025-04-03 15:53 | PN.HOSP_ITS ---
Reason for Visit Chief Complaint: Acute opiate withdrawal, requesting detox. Subjective Subjective Patient was seen and examined today, her hemoglobin this morning was 8.8. She underwent an EGD today which did not show any significant finding that would explain why she is so anemic. There was some chronic duodenitis noted. Patient will need to undergo colonoscopy either this admission or as an outpatient. I discussed this with gastroenterology. Tomorrow she will receive another infusion of Venofer, I did give her Venofer today. Patient does not appear anxious or nervous. Objective Data Objective Data Vital Signs: Vital Signs Temp Pulse Resp BP Pulse Ox O2 Del Method 97.9 F 61 16 122/71 H 100 Room Air 04/03/25 13:10 04/03/25 13:10 04/03/25 13:10 04/03/25 13:10 04/03/25 13:10 04/03/25 13:10 Oxygen Delivery Method Room Air Weight: 87.1 kg Body Mass Index (BMI) 30.8 Intake & Output: Intake and Output for Last 24 Hours 04/01/25 04/02/25 04/03/25 23:59 23:59 23:59 Intake Total 770 / 770 Balance 770 / 770 Lab / Micro Data 04/03/25 03:18 04/03/25 03:18 Labs: Laboratory Results - last 24 hr 04/03/25 03:18: WBC 8.1, RBC 4.99, Hgb 8.8 L, Hct 31.2 L, MCV 62.5 L, MCH 17.6 L , MCHC 28.2 L, RDW Std Deviation 38.6, RDW Coeff of Terrence 18.1 H, Plt Count 230, MPV TNP, Immature Gran % (Auto) 0.200, Neut % (Auto) 65.1, Lymph % (Auto) 24.1, [place] % (Auto) 8.0, Eos % (Auto) 2.5, Baso % (Auto) 0.1, Absolute Neuts (auto) 5.3, Absolute Lymphs (auto) 1.95, Nucleated RBC % 0, Sodium 143, Potassium 3.7, Chloride 111 H, Carbon Dioxide 20.4, Anion Gap 12, BUN 14, Creatinine 0.58 L, Estim Creat Clear Calc 134.74, Est GFR (MDRD) Non-Af 113, BUN/Creatinine Ratio 24.1 H, Glucose 115 H, Calcium 8.9, Total Bilirubin 0.20, Direct Bilirubin 0.10, AST 18, ALT 13, Alkaline Phosphatase 67, Total Protein 7.0, Albumin 3.9, Globulin 3.0 04/03/25 13:23: HIV 1&2 Antibody Nonreactive Micro: Microbiology 04/02/25 09:20 Stool Stool Occult Blood (ATTILA) - Final Physical Exam Const alert, oriented x3, no apparent distress and average body habitus General Appearance: cooperative, well kempt and well developed Orientation / Consciousness: awake, oriented to person, oriented to place and oriented to time HEENT normocephalic and moist oral mucous membranes Eyes PERRL, EOMs intact bilaterally and conjunctivae normal Neck supple, no JVD, thyroid normal and no carotid bruits General: trachea midline Resp normal respiratory effort and clear to auscultation bilaterally Auscultation: Negative for rales, rhonchi or wheezes Cardio regular rate, regular rhythm, no murmurs, no rub and no gallops GI normal to inspection, nondistended, normoactive bowel sounds, soft to palpation, non-tender and non-distended Extremity no clubbing, cyanosis or edema Skin no rashes or lesions noted General Skin Exam: no breakdown Neuro oriented x3, CN's II-XII intact bilaterally, no focal motor deficits and no sensory deficits noted Sensorium / Orientation: awake and alert Speech: speech normal Psych affect normal Assessment & Plan Assessment/Plan (1) Opiate withdrawal: PLAN: Plan 1. Acute opiate withdrawal-patient will continue on her Subutex taper, she will be seen again by addiction web content & social media manager #2 polysubstance abuse-complicates care, management, recovery, and prognosis #3 history of bipolar disorder-patient is on no medication at the present time, she will need follow-up as an outpatient with her physician #4 iron deficiency anemia-etiology of this is unknown at this time, patient still has menses, examining the lab work it appears to this anemia is chronic, again EGD was done today which showed chronic duodenitis no evidence of bleeding, she will need a colonoscopy done either this Tuesday or as an outpatient, I have left it up to gastroenterology whether they want to do it this Tuesday or not. I think of the patient's not actively bleeding it can be done as an outpatient. H&H will be rechecked tomorrow. Patient will be given Venofer today and tomorrow. #5 history of diabetes-patient's blood sugars do not seem to be elevated however, she is on no medication at this time Total clinical time spent by myself addressing the patient's medical issues, reviewing all of her data, and collaborating with the patient's care team: 35 minutes Charges/Coding Visit Charges Inpatient E&M: 81786 Subs Hosp L2
[2025-04-03] MEDS: 0.9% Saline Lock 10 ML Syringe IV (16:34)
[2025-04-04 05:40] VITALS: BP 139/83; PULSE 77; RESP 16; TEMP 36.6; O2SAT 99
--- NOTE | 2025-04-04 07:47 | PCM.PN.HOSP ---
Reason for Visit Chief Complaint: Acute opiate withdrawal, requesting detox. Subjective Subjective Feeling well. No new issues. Ready to go home. Objective Data Objective Data Vital Signs: Vital Signs Temp Pulse Resp BP Pulse Ox O2 Del Method 36.6 C 77 16 139/83 H 99 Room Air 04/04/25 05:40 04/04/25 05:40 04/04/25 05:40 04/04/25 05:40 04/04/25 05:40 04/04/25 05:40 Oxygen Delivery Method Room Air Weight: 87.1 kg Body Mass Index (BMI) 30.8 Intake & Output: Intake and Output for Last 24 Hours 04/02/25 04/03/25 04/04/25 23:59 23:59 23:59 Intake Total 770 / 770 270 / 670 750 / 750 Balance 770 / 770 270 / 670 750 / 750 Lab / Micro Data 04/03/25 03:18 04/03/25 03:18 Labs: Laboratory Results - last 24 hr 04/01/25 16:30: Miscellaneous Test COMMENT 04/03/25 13:23: HIV 1&2 Antibody Nonreactive 04/03/25 23:23: POC Glucose 148 H Micro: Microbiology 04/02/25 09:20 Stool Stool Occult Blood (ATTILA) - Final Physical Exam Const alert and no apparent distress Constitutional Narrative: up walking in room. non-toxic. afebrile. Psych affect normal Assessment & Plan Assessment/Plan (1) Opiate withdrawal: PLAN: Plan Acute opiate withdrawal resolved. patient will continue on her Subutex taper, pt to follow up with [facility] in [place]. polysubstance abuse-complicates care, management, recovery, and prognosis history of bipolar disorder-patient is on no medication at the present time, she will need follow-up as an outpatient with her physician iron deficiency anemia EGD showed duodenitis. Follow-up with GI for outpatient colonoscopy. Started patient on ferrous sulfate. has received IV iron history of diabetes-patient's blood sugars do not seem to be elevated however, she is on no medication at this time
[2025-04-04 07:50] VITALS: BP 145/81; PULSE 79; RESP 16; TEMP 36.6; O2SAT 100
[2025-04-04] MEDS: Nicotine (PBKC) 21 MG Patch TD (09:03)
[2025-04-04] MEDS: Ensure Plus High Protein 120 ML LIQUID PO (09:05)
--- NOTE | 2025-04-04 09:26 | PCM.DC.SUM ---
Providers Date of Admission: 04/01/25 Primary Care Physician: Betsey Ferguson NP, [employer] DEVELOPER-[employer] Consultations 04/02/25 17:42 Consult: Gastroenterology Routine Consulting Provider: [facility] Reason for Consult: Iron deficiency anemia EMERGENT Consult: No MD Notified: Yes Date Notified: 04/02/25 Time Notified: 17:42 Method of Notification: Verbal Reason For Visit: ACUTE OPIATE WITHDRAWAL Diagnosis Discharge Diagnosis (1) Opiate withdrawal: Status: Acute Code(s): F11.93 - Opioid use, unspecified with withdrawal Plan Acute opiate withdrawal resolved. patient will continue on her Subutex taper, pt to follow up with [facility] in [place]. polysubstance abuse-complicates care, management, recovery, and prognosis history of bipolar disorder-patient is on no medication at the present time, she will need follow-up as an outpatient with her physician iron deficiency anemia EGD showed duodenitis. Follow-up with GI for outpatient colonoscopy. Started patient on ferrous sulfate. has received IV iron history of diabetes-patient's blood sugars do not seem to be elevated however, she is on no medication at this time Medications at Discharge Home Medications acetaminophen 325 mg tablet (Tylenol) 650 mg PO Q6H PRN pain 04/01/25 ferrous sulfate 325 mg (65 mg iron) tablet,delayed release 325 mg PO QODAY #30 tabs 04/04/25 Hospital Course Operations None Procedures EGD Weight / BMI Weight Weight: 87.1 kg Body Mass Index (BMI) 30.8 ABG / Lab / Microbiology Data 04/03/25 03:18 04/03/25 03:18 Laboratory: Laboratory Results - last 24 hr 04/01/25 16:30: Miscellaneous Test COMMENT 04/03/25 13:23: HIV 1&2 Antibody Nonreactive 04/03/25 23:23: POC Glucose 148 H Microbiology: Microbiology 04/02/25 09:20 Stool Stool Occult Blood (ATTILA) - Final D/C Instructions DC O2, CPAP, BIPAP Needs Home O2 Discharge instructions: No Meaningful Use Info Meaningful Use Meaningful Use Diagnoses (Choose all that apply): None applicable Discharge Plan Admission Admit Date/Time: 04/01/25 18:44 Primary Reason for Your Visit: opiate withdrawal. Attending Provider: Patricio Mckenzie Primary Care Provider: Betsey Ferguson NP Consulting Providers: Mickie Garcia; Chong Antony; Anuja,Ferdinand; Sara Aguirre; Magnolia Pink; Susan Cash; Cory Leon Instructions Additional Instructions / Restrictions: Follow up with addiction services in [place]. Contact gastroenterology for colonoscopy. Discharge Orders/Prescriptions Prescriptions: New ferrous sulfate 325 mg (65 mg iron) tablet,delayed release (DR/EC) 325 mg PO QODAY Qty: 30 0RF Continued acetaminophen [Tylenol] 325 mg tablet 650 mg PO Q6H PRN (Reason: pain) Discontinued ibuprofen [Advil] 200 mg tablet 400 mg PO Q6H PRN (Reason: pain) Referrals / Follow Up: Care Physician,No Primary [Non-Staff, Medical] Betsey Ferguson [employer] DEVELOPER, [employer] DEVELOPER[employer] [Primary Care Provider, Family Practice] Disposition Disposition (needs filled in before D/C Order can be placed): Home, Self Care Charges/Coding Visit Charges Inpatient E&M: 34706 Disch Hosp
[2025-04-08 16:08] LABS: Cytoplasmic Ab (C-ANCA) <1:20 titer (Neg:<1:20); Perinuclear Ab (P-ANCA) <1:20 titer (Neg:<1:20)
[2025-04-09 13:08] LABS: Albumin 3.4 g/dL (2.9-4.4); Gamma Globulin 1.4 g/dL (0.4-1.8); HCV Quant. RNA PCR 340 IU/mL (.); HEPATITIS B SURFACE AG Negative (Negative); Hep C Antibodies Reactive (Non Reactive); Immunoglobulin A 247 mg/dL (87-352); Immunoglobulin G 1433 mg/dL (586-1602); Immunoglobulin M 185 mg/dL (26-217); PROEL- TOTAL PROTEIN 6.7 g/dL (6.0-8.5)
== END 2025-04-04 14:35 | disposition home or self-care (01) | DRG 897 ==
LOC: ED 18:46 → MS3 19:07
PROVIDERS: Anesthesiology; Internal Medicine; Internal Medicine Gastroenterology; Admitting Provider Family Medicine; Emergency Provider Emergency Medicine
PROC: 0DJ08ZZ Inspection of Upper Intestinal Tract, Via Natural or Artificial Opening Endoscopic (ICD-10-PCS; CPT 43235; principal; 2025-04-03 11:10)
DX: F11.13 Opioid abuse with withdrawal (principal); K29.80 Duodenitis without bleeding; E11.9 Type 2 diabetes mellitus without complications; B19.20 Unspecified viral hepatitis C without hepatic coma; D50.9 Iron deficiency anemia, unspecified; F17.210 Nicotine dependence, cigarettes, uncomplicated; I50.9 Heart failure, unspecified; I11.0 Hypertensive heart disease with heart failure; F31.9 Bipolar disorder, unspecified; F41.9 Anxiety disorder, unspecified
CPT/HCPCS: 36415; 80048; 80053; 80074; 80076; 80307; 82077; 82105; 82274; 82728; 82784; 82962; 83036; 83540; 83550; 84165; 84703; 85025; 86037; 86334; 86703; 86706; 86780; 86803; 87340; 87522; 87902; 88305; 93005; 99283; A4216; J2405; J2916